=== PATIENT | female | born 1950 | race Caucasian/White ===

== ENCOUNTER → 2019-06-26 11:30 | Outpatient (CLI) | payer OTHER, SELFPAY ==
--- NOTE | 2019-06-25 15:00 | VUL_PTH ---
PATIENT: NUZHAT MURCIA LOC: [facility] #:[id number] AGE/SX: 75/F ROOM: RE06/26/[address]: Dr. Vish Mejia MD : 1950 BED: DIS: SPEC #: [id number] RECD: 06/26/19 10:41 STATUS: MAYNOR JAY JAY #: [id number] DARLENE: 06/25/19 15:[address]: Vish Mejia DEPT: SURGICAL PATHOLOGY RECD BY: Renny Goel ENTERED: 06/26/19 12:07 SP TYPE: VULVA BX OTHR DR: No Primary Care Phys Tissues: Vulva, NOS Procedures: PAS Fungus (control) Special Stain Group I Surgery Specimen Level IV HEADER OPERATION: Punch vulva biopsy PRE-OP DIAGNOSIS: Leukoplakia TISSUE SUBMITTED: Vulva biopsy MICROSCOPIC DIAGNOSIS Vulva, biopsy: Fragments of squamous mucosa with moderate to marked chronic inflammation and hyperkeratosis. Special stain for fungi is negative for organisms; matched control is appropriate. Negative for dysplasia or malignancy. STEVE:reno 06/27/19 MICROSCOPIC DESCRIPTION Slides are reviewed. GROSS DESCRIPTION Received in fixative is one container labeled with the patient's name and designated vulva biopsy. The specimen consists of two pieces of neri mucosal tissue measuring 0.4 x 0.3 x 0.2 cm and 0.7 x 0.3 x 0.1 cm. The entire specimen is submitted in one cassette. / STEVE:reno 06/26/19 TC: 3 CPT: 34383, 92681
== END ==
PROVIDERS: Referring Provider Obstetrics & Gynecology; Visit Provider Obstetrics & Gynecology
DX: N89.4 Leukoplakia of vagina (principal)
CPT/HCPCS: 88305; 88312

== ENCOUNTER → 2024-09-17 | Outpatient (CLI) | payer OTHER, SELFPAY ==
--- NOTE | 2024-09-17 12:04 | CT_ITS ---
PROCEDURE: BRAIN/HEAD WITHOUT CONTRAST 09/17/2024 REASON FOR EXAM: HX OF TUMOR REMOVAL / PAINTER PLATE SHUNT (1970), HEADACHES TECHNIQUE: Head CT without intravenous contrast. Coronal and Sagittal reconstruction series were provided. One or more dose reduction techniques were used (e.g., Automated exposure control, adjustment of the mA and/or kV according to patient size, use of iterative reconstruction technique. RADIATION DOSE SUMMARY: CTDlvol: 44.99 mGy DLP: 829.85 mGycm COMPARISON: None provided. FINDINGS: This evaluation is significantly limited by lack of a prior comparison study. Brain: Prior right craniotomy site noted. Areas of frontotemporal white matter hypodensity are consistent with postsurgical changes and gliosis. A right shunt tube is in place, with tip at or near the 3rd ventricle. No significant 3rd and lateral ventricular enlargement is seen. No sulcal effacement is evident. No extra-axial fluid collection is seen. No intracranial hemorrhage is noted Sinuses/Mastoids: Clear at visualized levels Bones: No acute osseous process is seen CT/Brain/Head without Contrast IMPRESSION: 1. No intracranial hemorrhage or other acute process is noted. 2. No ventriculomegaly is seen. 3. No extra-axial fluid collection is noted. 4. Shunt tube in place, with tip at or near the 3rd ventricle. Reading Location: [id number]
== END | disposition home or self-care (01) ==
LOC: CT 11:47
DX: R51.9 Headache, unspecified (principal); Z86.011 Personal history of benign neoplasm of the brain; Z87.898 Personal history of other specified conditions
CPT/HCPCS: 70450

== ENCOUNTER → 2024-10-24 | Outpatient (CLI) | payer OTHER, SELFPAY ==
[2024-10-24 11:56] LABS: Hematocrit 40.6 % (37-47); Hemoglobin 13.0 g/dL (12.0-15.0); Immature Granulocytes Count 0.080 X10^3/uL (0.0-0.0); Mean Corp Hgb Conc 32.0 g/dL (32-36); Mean Corpuscular Volume 97.1 fL (81-99); Mean Platelet Vol. 12.1 fl (6.2-12.0); NRBC Flagged by Analyzer 0 % (0-5); Platelet Count 182 K/mm3 (150-450); RBC Distribution Width CV 14.3 % (11.6-14.6); RBC Distribution Width SD 51.4 fl (35.1-43.9); Red Blood Count 4.18 M/mm3 (4.2-5.4); White Blood Count 6.1 K/mm3 (4.4-11.0)
[2024-10-24 12:27] LABS: AST(SGOT) 25 U/L (<=31); Alanine Aminotransfer ALT/SGPT 22 U/L (<=34); Albumin, Serum 4.3 g/dL (3.4-4.8); Alkaline Phosphatase 74 U/L (35-104); Anion Gap 12 (5-15); BUN 16 mg/dL (4-19); BUN/Creat Ratio 19.6 RATIO (10-20); Calcium,Total 9.8 mg/dL (7.6-11.0); Carbon Dioxide 21.8 mmol/L (21.0-32.0); Chloride 107 mmol/L (98-108); Globulin 2.7 g/dL (2.2-4.2); Glucose 93 mg/dL (70-99); Potassium 4.0 mmol/L (3.3-5.1)
[2024-10-24 12:53] LABS: CRP < 3.00 mg/L (0.0-3.0); Iron 74 ug/dL (50-170); Magnesium 2.4 mg/dL (1.5-2.2)
== END | disposition home or self-care (01) ==
DX: R51.9 Headache, unspecified (principal); Z87.898 Personal history of other specified conditions
CPT/HCPCS: 36415; 80053; 80201; 83540; 83735; 84443; 85025; 85652; 86140

== ENCOUNTER → 2024-11-21 | Outpatient (CLI) | payer SELFPAY ==
[2024-11-21 12:58] LABS: Ammonia 39.5 umol/L (11-51)
== END | disposition home or self-care (01) ==
LOC: MTLAB 09:47
PROVIDERS: PCP Student in an Organized Health Care Education/Training Program; Referring Provider Psychiatry & Neurology Neurology; Visit Provider Psychiatry & Neurology Neurology
DX: R51.9 Headache, unspecified (principal); R41.89 Other symptoms and signs involving cognitive functions and awareness; Z87.898 Personal history of other specified conditions
CPT/HCPCS: 36415; 80201; 82140

== ENCOUNTER 2025-03-28 17:21 | Emergency (ER) | payer OTHER, SELFPAY ==
[2025-03-28] VITALS (19 sets, daily range): BP systolic 122–185; BP diastolic 75–105; PULSE 67–88; RESP 13–18; TEMP 36.6; O2SAT 96–100; BMI 37.8
--- NOTE | 2025-03-28 18:37 | CT_ITS ---
PROCEDURE: BRAIN/HEAD WITHOUT CONTRAST 03/28/2025 REASON FOR EXAM: WEAKNESS TECHNIQUE: Procedure Code: CTBR Modality: CT Procedure: BRAIN/HEAD WITHOUT CONTRAST Coronal and Sagittal reconstruction series were provided. One or more dose reduction techniques were used (e.g., Automated exposure control, adjustment of the mA and/or kV according to patient size, use of iterative reconstruction technique. COMPARISON: CT head 09/17/2024 FINDINGS: Redemonstrated right prior craniotomy with associated underlying frontotemporal encephalomalacia. Unchanged positioning of the right ventricular drain. Stable 8.5 mm xsdn-ih-taped midline shift secondary to cortical atrophy. There is no extra-axial or intra-axial intracranial hemorrhage. No mass effect is seen. Generalized intracranial volume loss and findings compatible with chronic microvascular white matter ischemia. There is normal aclvo-white matter differentiation. The posterior fossa is grossly unremarkable. No depressed skull fractures. Visualized paranasal sinuses are clear. The mastoid air cells show normal translucency. CT/Brain/Head without Contrast IMPRESSION: 1. No intracranial hemorrhage. No significant interval change. 2. Stable right frontotemporal craniotomy with underlying encephalomalacia. 3. Unchanged 8.5 mm umlj-uj-vdrxx midline shift secondary to cortical atrophy. 4. Chronic involutional and ischemic gliotic white matter changes. Reading Location: [facility]
--- NOTE | 2025-03-28 18:37 | EKG12_ITS ---
Test Reason : DYSRHYTHMIA Blood Pressure : */* mmHG Vent. Rate : 72 BPM Atrial Rate : 72 BPM P-R Int : 220 ms QRS Dur : 106 ms QT Int : 420 ms P-R-T Axes : 38 -35 18 degrees QTcB Int : 459 ms Sinus rhythm with 1st degree A-V block Left axis deviation Incomplete left bundle branch block Minimal voltage criteria for LVH, may be normal variant ( Concord product ) Abnormal ECG Confirmed by SILVERIO CAMPOVERDE, JASS ([id number]), deputy editor in chief ANNA RUIZ ([id number]) on 03/31/2025 6:38:51 AM Referred By: Confirmed By: JASS SAWYER MD
--- NOTE | 2025-03-28 18:39 | EX.ED.DYSGE1 ---
HPI History of Present Illness Chief Complaint: Neuro S/Sx Informant: patient and family Onset/Context/Timing Onset: Days Context: Gradual Onset Timing: Continuous Quality: Weakness Location: Right upper and lower extremity Worsened by: Fatigue Relieved by: Nothing Narrative Narrative: Patient presents with right-sided weakness that has been getting worse over the past few days. Patient states it is gradually getting worse. Family states it has been intermittent. Patient states that it is over the right upper and lower extremity. Patient states it is worse when she gets tired. Patient states nothing makes it better. Family states the patient also had an episode today where she was mumbling and having difficulty speaking. Family states this has resolved. Patient admits to some urinary frequency but denies any dysuria or hematuria. Patient admits to some rhinorrhea. Patient admits to chronic headaches that have gotten worse over the past couple days. [facility] Medical History (Updated 03/28/25 @ 23:[address] Charles Titus, DO) History of benign brain tumor CKD (chronic kidney disease), stage II History of seizures Home Medications ?Medication ?Instructions ?Recorded ?Last Taken ?Type calcium carbonate 600 mg PO QDAY 09/17/24 Unknown History cholecalciferol (vitamin D3) 25 25 mcg PO QDAY 09/17/24 Unknown History mcg (1,000 unit) capsule magnesium aspart,citrate,oxide 400 mg PO QDAY 09/17/24 Unknown History multivitamin 1 tab PO QDAY 09/17/24 Unknown History potassium citrate 99 mg capsule 99 mg PO QDAY 09/17/24 Unknown History topiramate 50 mg tablet 50 mg PO .COMPLEX SEIZURES #360 11/21/24 Unknown Rx tabs cephalexin 500 mg capsule 500 mg PO Q6 #12 CAPSULES 03/28/25 Unknown Rx Allergy/AdvReac Type Severity Reaction Status Date / Time No Known Allergies Allergy Verified 03/28/25 17:22 Family History Mother , 83 Heart disease Father , 76 Heart disease Alzheimer disease Surgical History H/O: hysterectomy H/O hernia repair H/O total knee replacement H/O mastectomy Social History household members: spouse pets and animals: No Smoking Status: Never smoker alcohol intake: never caffeine: Yes Type: coffee Number of servings: 1 do you feel safe at home: Yes ROS ROS ED Constitutional Constitutional ED: Denies chills or fever(s) Eyes Eyes: Denies blurry vision or change in vision ENT ENT ED: Reports rhinorrhea; Denies sore throat Cardiovascular Cardiovascular: Denies chest pain or palpitations Respiratory/Chest Respiratory/Chest: Denies cough or dyspnea Gastrointestinal Gastrointestinal: Denies nausea or vomiting Genitourinary Genitourinary ED: Reports urinary frequency; Denies dysuria or hematuria Musculoskeletal Musculoskeletal: Denies back pain or neck pain Integumentary Denies abscess or rash Neurologic Neurologic: Reports headache(s); Denies weakness Allergic/Immunologic Allergic/Immunologic ED: Denies mouth swelling or urticaria EXAM Physical Exam Const Vital Signs: 03/28/25 17:21 03/28/25 18:21 03/28/25 19:00 Temperature 97.8 F Temperature Source Temporal Pulse Rate 88 80 67 Respiratory Rate 18 16 16 Blood Pressure 185/94 H 124/80 H 122/87 H Blood Pressure Mean 124 94 98 Pulse Ox 100 98 99 Oxygen Delivery Method Room Air Room Air 03/28/25 19:30 03/28/25 20:04 03/28/25 20:05 Temperature Temperature Source Pulse Rate 72 73 Respiratory Rate 13 16 Blood Pressure 176/105 H Blood Pressure Mean 127 Pulse Ox 98 99 Oxygen Delivery Method Room Air 03/28/25 20:15 03/28/25 20:30 03/28/25 20:45 Temperature Temperature Source Pulse Rate 71 73 68 Respiratory Rate 13 13 15 Blood Pressure 185/92 H 183/92 H 182/95 H Blood Pressure Mean 119 116 119 Pulse Ox 98 99 98 Oxygen Delivery Method 03/28/25 21:08 03/28/25 21:15 03/28/25 21:16 Temperature Temperature Source Pulse Rate 72 74 73 Respiratory Rate 17 15 16 Blood Pressure 169/77 H Blood Pressure Mean 104 Pulse Ox 98 98 97 Oxygen Delivery Method Room Air 03/28/25 21:30 03/28/25 21:45 03/28/25 22:00 Temperature Temperature Source Pulse Rate 71 68 71 Respiratory Rate 14 13 13 Blood Pressure 166/82 H 162/77 H 170/77 H Blood Pressure Mean 104 101 102 Pulse Ox 97 98 97 Oxygen Delivery Method Room Air Room Air Room Air 03/28/25 22:15 03/28/25 22:30 03/28/25 22:45 Temperature Temperature Source Pulse Rate 68 68 70 Respiratory Rate 14 15 14 Blood Pressure 149/80 H 149/75 H 162/81 H Blood Pressure Mean 99 98 105 Pulse Ox 96 97 96 Oxygen Delivery Method Room Air 03/28/25 23:00 Temperature Temperature Source Pulse Rate 68 Respiratory Rate 14 Blood Pressure 168/77 H Blood Pressure Mean 102 Pulse Ox 97 Oxygen Delivery Method Room Air Positive well nourished and well developed General Appearance ED: well developed and NAD HEENT Reports moist mucous membranes Neck supple and no JVD Resp normal respiratory effort and clear to auscultation bilaterally Cardio regular rate and regular rhythm GI non-tender and non-distended Palpation: soft Extremity normal to inspection General Extremety ED: Negative for tenderness Neuro oriented x3 and CN's II-XII intact bilaterally Neuro Narrative: 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 Patient was able to hold both arms at approximately 30 degrees for 10 seconds. There is some decrease sensation in the right hand in a glove like distribution. Sensorium / Orientation: alert Psych mental status grossly normal MDM MDM MDM Narrative Medical decision making narrative: Differential diagnosis includes stroke, neuropathy, electrolyte abnormality, urinary tract infection, dehydration, sepsis, pneumonia, bronchitis, and anxiety. CT scan of the brain will be obtained to assess for stroke and intracranial bleeding. Chest x-ray will be obtained to assess for pneumonia or bronchitis. EKG will be obtained to assess for cardiac dysrhythmia and cardiac ischemia. CBC will be obtained to assess for leukocytosis and anemia. Basic metabolic profile will be obtained to assess for electrolyte abnormality and renal function. Urinalysis will be obtained to assess for urinary tract infection and hematuria. Serum lactate will be obtained to assess for sepsis. PT with INR and PTT will be obtained to assess for coagulopathy. History & Record Review Additional record(s) reviewed:: Prior outpatient record Lab Data Attestation: I reviewed the patient's lab results. Lab results narrative: CBC was reviewed and was within normal limits. Basic metabolic profile was reviewed. Glucose was mildly elevated at 119. The remainder is within normal limits. Serum lactate was reviewed and was normal at 1.2. PT with INR and PTT were reviewed and were within normal limits. Urinalysis was reviewed. Leukocyte Estrace was 25. There are 10-25 white blood cells and 2+ bacteria. Labs: Laboratory Results - last 24 hr 03/28/25 03/28/25 03/28/25 19:05 19:26 21:06 WBC 7.5 RBC 4.39 Hgb 13.8 Hct 42.0 MCV 95.7 MCH 31.4 MCHC 32.9 RDW Std Deviation 46.7 H RDW Coeff of Tristan 13.1 Plt Count 217 MPV 11.8 Immature Gran % (Auto) 0.100 Neut % (Auto) 69.5 Lymph % (Auto) 20.6 [place] % (Auto) 7.0 Eos % (Auto) 2.4 Baso % (Auto) 0.4 Absolute Neuts (auto) 5.2 Absolute Lymphs (auto) 1.54 Nucleated RBC % 0 PT 13.5 INR 1.0 APTT 25.8 Sodium 140 Potassium 3.5 Chloride 106 Carbon Dioxide 23.1 Anion Gap 11 BUN 16 Creatinine 0.72 Estim Creat Clear Calc 59.91 Est GFR (MDRD) Non-Af 87 BUN/Creatinine Ratio 21.6 H Glucose 119 H Lactic Acid 1.2 Calcium 9.8 Urine Color Yellow Urine Clarity Clear Urine pH 7.0 Ur Specific [place] 1.010 Urine Protein Negative Urine Glucose (UA) Normal Urine Ketones Negative Urine Occult Blood Negative Urine Nitrite Positive H Urine Bilirubin Negative Urine Urobilinogen Normal Ur Leukocyte Esterase 25 H Urine RBC 0-5 SEEN Urine WBC 10-25 SEEN Ur Squamous Epith Cells 0-5 SEEN Urine Bacteria 2+ Urine Mucus 0 SEEN POC Glucose 99 Radiography Chest X-Ray - ED: 2 View, Read by ED Physician, Read by Radiologist, Chronic Changes and Cardiomegaly Diagnostic Testing: Clinical Impression(s) from Imaging Studies Brain CT 03/28/25 18:37 IMPRESSION: 1. No intracranial hemorrhage. No significant interval change. 2. Stable right frontotemporal craniotomy with underlying encephalomalacia. 3. Unchanged 8.5 mm ebob-er-podut midline shift secondary to cortical atrophy. 4. Chronic involutional and ischemic gliotic white matter changes. Reading Location: [facility] Chest X-Ray 03/28/25 19:40 IMPRESSION: Cardiomegaly with mild central vascular congestion. No acute pulmonary disease. Reading Location: [facility] CT scan of the brain was obtained. There is no acute intracranial bleeding or infarct. There is unchanged 8.5 mm kapg-bs-lqtzg midline shift secondary to atrophy. There are chronic changes noted. This was interpreted by the radiologist. I also independently reviewed the images and did not see any acute intracranial bleeding. PA and lateral chest x-ray was obtained. There are 2 views. On my independent interpretation, lung arechiga show mild vascular congestion. There is cardiomegaly. Bony thorax is normal. Radiologist also interpreted the x-ray and agrees. EKG Initial EKG: Attestation: I personally reviewed and interpreted this EKG as follows: Interpretation: Sinus Rhythm (With first-degree AV block with a rate of 72) and LAFB Comments: EKG was obtained. On my independent interpretation, it shows a sinus rhythm with a first-degree AV block with a rate of 72. GA interval was prolonged at 220 ms. QRS interval was normal at 106 ms. QTc interval was normal at 459 ms. There is left axis deviation at -35. There is a left anterior fascicular block pattern noted. There is left ventricular hypertrophy. There are no acute ST or T wave changes noted. Prior EKG tracings: not available for review Prior: No Prior Treatment and Re-Evaluation :: Patient's blood pressure was elevated. Patient was given a dose of labetalol. Patient's blood pressure improved after this. Patient was advised of her findings. Patient and family were advised that the right hand weakness is more likely from a peripheral neuropathies and a stroke. Patient was given a cock up wrist splint for her right wrist and hand. Urine culture was ordered. Patient was started on Keflex. Patient was given her normal dose of Topamax here. Discharge Plan Triage Chief Complaint: Neuro S/Sx ED Provider: Charles Titus Dx/Rx/DC Orders Clinical Impression: Peripheral neuropathy, Urinary tract infection, Elevated blood pressure reading Instructions: ED Hypertension, To Be Confirmed, ED Neuropathy, Peripheral, ED Cystitis Female Adult Prescriptions: New cephalexin 500 mg capsule 500 mg PO Q6 Qty: 12 0RF No Action multivitamin Tablet 1 tab PO QDAY cholecalciferol (vitamin D3) 25 mcg (1,000 unit) capsule 25 mcg PO QDAY calcium carbonate 600 mg calcium (1,500 mg) tablet 600 mg PO QDAY potassium citrate 99 mg capsule 99 mg PO QDAY magnesium aspart,citrate,oxide 400 mg magnesium capsule 400 mg PO QDAY topiramate 50 mg tablet 50 mg PO .COMPLEX Qty: 360 3RF Rx Instructions: 50mg orally (1 tablet) QAM and 150mg orally QHS (3 tablets) Primary Care Provider: Abeba Mcmanus Referrals: Abeba Mcmanus MD [Primary Care Provider, Family Practice] - 3-5 Days Print Language: [place] Disposition Disposition: Home, Self Care
--- OUTSIDE RECORDS SUMMARY | 2025-03-28 19:15 | XMS RPT_ITS | CCD ---
Author Organization [facility] [employer] [facility] Care Team Providers Care Oncology Research Rn Name Role Phone JUICE WATSON Unavailable SLIME FERNANDES MD Unavailable FLOYD NICOLAS V Unavailable ESSIE OAKES MD Unavailable Betina QUINN MD Unavailable Scott OAKES MD Unavailable KENZIE VELAZQUEZ MD Unavailable Yonathan QUICK, Alisa Unavailable Unavailable Beatrice RN, Carmen Unavailable Unavaila nicolás Abdalla RN, Mary Unavailable Unavailable Ami Magaña Unavailable Unavailable Floyd Magaña Unavailable Unavailable NELLY OAKES Unavailable Unavailable ZHOU FERNANDES MD Unavailable ANABELLA GAONA Unavailable Unavailable Cara Melchor Unavailable Unavailable Araceli RN, Jemima Unavailable Unavailab Sindy Esparza Unavailable Unavailable DI APODACA Unavailable Unavailable ARACELI QUICK, RENE Unavailable Unavaila ble Unavailable Unavailable ORTHOPEDICS, DIANA Unavailable [phone] ZHOU FERNANDES Consulting Unavailable JUICE CORRALES VIOLIN REPAIRER Admitting Unavailab JUICE Macdonald VIOLIN REPAIRER Primary Care Unavailab JUICE Macdonald VIOLIN REPAIRER Attending Unavailab le PROVIDER, UNKNOWN Consulting Unavailable PROVIDER, UNKNOWN Consulting Unavailable PROVIDER, UNKNOWN Consulting Unavailable JUICE CORRALES VIOLIN REPAIRER Primary Care Unavailab JUICE Macdonald VIOLIN REPAIRER Attending Unavailab le HOFSTETTER, JUICE VIOLIN REPAIRER Admitting Unavailab le HOFSTETTER, JUICE VIOLIN REPAIRER Primary Care Unavailab le HOFSTETTER, JUICE VIOLIN REPAIRER Attending Unavailab le HOFSTETTER, JUICE VIOLIN REPAIRER Admitting Unavailab le OAKES, ESSIE Admitting Unavailable OAKES, ESSIE Primary Care Unavailable OAKES, ESSIE Attending Unavailable HOFSTETTLESLY, JUICE VIOLIN REPAIRER Consulting Unavailab le PROVIDER, UNKNOWN Consulting Unavailable PROVIDER, UNKNOWN Consulting Unavailable HOMAYRATETTER, JUICE VIOLIN REPAIRER Admitting Unavailab le HOFSTETTER, JUICE VIOLIN REPAIRER Primary Care Unavailab le HOMAYRATETTLESLY, JUICE VIOLIN REPAIRER Attending Unavailab le ZHOU FERNANDES Consulting Unavailable PROVIDER, UNKNOWN Consulting Unavailable PROVIDER, UNKNOWN Consulting Unavailable PROVIDER, UNKNOWN Consulting Unavailable Generic Provider MD, No Assigned Pcp Primary Car e Provider Unavailable AMARJIT GALARZA Attending Unavailable GENERIC PROVIDER, NO ASSIGNED PCP Primary Care Unavailable NORMA MCMANUS MD Unavailable SAVANNA DATA MINING ANALYST-C, JUICE Kilpatrick Unavailable Unav ailable NEUROLOGY, GENERAL Unavailable Unavailable Care Physician, No Primary Primary Care Provider Unavailable Care Physician, No Primary Referring Provider Un available Carmen ALVARADO-CRadha Attending Provider [phone] Carmen VIOLIN REPAIRER-CRadha Referring Provider [phone] Norma Mcmanus MD Primary Care Provider Conrad CAMPOVERDE, Dr. Jorge Attending Provider Dr. Luisito Martines MD Referring Provider Carmen VIOLIN REPAIRER-CRadha Other Provider [phone] Yonathan Norma Primary Care Unavailable Luisito Martines Attending Unavailable Luisito Martines Referring Unavailable Radha Morales Consulting Unavailable Radha Morales Attending Unavailable Radha Morales Referring Unavailable Care Physician, No Primary Primary Care Unava ilable Care Physician, No Primary Referring Unava ilable Radha Morales Attending Unavailable Care Physician, No Primary Primary Care Unava ilable Care Physician, No Primary Referring Unava ilable Radha Morales Attending Unavailable Care Physician, No Primary Primary Care Unava ilable Care Physician, No Primary Primary Care Unava ilable Care Physician, No Primary Referring Unava ilable Radha Morales Attending Unavailable Radha Morales Attending Unavailable Radha Morales Referring Unavailable Care Physician, No Primary Primary Care Unava ilable Medications Current Medications Medication Drug Class(es) Dates Sig (Normalized) Sig (Original) acetaminophen 500 mg / diphenhydrAMINE hydrochloride 25 mg oral tablet (11 sources) Histamine-1 Receptor Antagonist Tylenol PM Extra Strength 25 mg-500 mg tablet ; as needed to sleep (25-500 mg) Comments: Medication taken as needed. Comment on above: Medication taken as needed. ascorbic acid 250 mg oral tablet (20 sources) Vitamin C take 1 tablet by mouth once daily VITAMIN C, 250MG (Oral Tablet) ; 1 daily (250 MG) Comments: OTC Comment on above: OTC ascorbic acid 226 mg / cuprous oxide 0.8 mg / dl-alpha tocopheryl acetate 200 unt / lutein 5 mg / zinc oxide 34.8 mg oral capsule (20 sources) Vitamin C take 1 capsule by mouth once daily PRESERVISION/LUTEIN (Oral Capsule) ; 1 daily Comments: OTC Comment on above: OTC calcium carbonate 1500 mg oral tablet (6 sources) Start: 09-17-2024 take 1 tablet by mouth once daily Calcium Carbonate 600 mg calcium (1,500 mg) tablet Active 600 mg PO daily September 17, 2024 12:00am cholecalciferol 0.025 mg oral capsule (6 sources) Vitamin D Start: 09-17-2024 take 1 capsule by mouth once daily Cholecalciferol (Vitamin D3) 25 mcg (1,000 unit) capsule Active 25 ug PO daily September 17, 2024 12:00am diazePAM 5 mg oral tablet (20 sources) Benzodiazepine Start: 08-04-2023 take 1 tablet by mouth at bedtime as needed Valium 5 mg tablet ; 1 Tablet at bedtime, as needed for 30 days Quantity: 30 {Tablet} Refills: 1 Ordered: 19-Apr-2024 MD NORMA MCMANUS Start: 19-Apr-2024 Comments: Medication taken as needed. Start: 10-28-2022 take 1 tablet by екатерина th at bedtime as needed Valium 5 mg tablet ; 1 Tablet at bedtime, as needed for 0 days Quantity: 60 {Tablet} Refills: 0 Ordered: 28-Oct-2022 FREDI CORRALES Start: 28-Oct-2022 Comments: Medication taken as needed. Comment on above: Medication taken as needed. Magnesium Aspart,Citrate,Oxide 400 mg magnesium capsule (6 sources) Start: 5 take 1 capsule by mouth once daily Magnesium Aspart,Citrate,Oxide 400 mg magnesium capsule Active 400 mg PO daily September 17, 2024 12:00am Multivitamin tablet (6 sources) Start: 5 Multivitamin tablet Active 1 {tbl} PO daily September 17, 2024 12:00am potassium citrate 99 mg oral tablet (6 sources) Start: 5 take 1 capsule by mouth once daily Potassium Citrate 99 mg capsule Active 99 mg PO daily September 17, 2024 12:00am potassium gluconate 2.35 meq oral tablet (20 sources) take 1 tablet by mouth once daily potassium gluconate 550 mg (90 mg) oral tablet ; 1 daily (550 mg (90 mg)) Comments: OTC Comment on above: OTC Completed/Discontinued Medications Medication Drug Class(es) Dates Sig (Normalized) Sig (Original) azithromycin 250 mg oral tablet (20 sources) Macrolide Antimicrobial Start: 04-28-2023 End: 05-03-2023 azithromycin 250 mg tablet ; 2 (two) Tablets on day one then 1 daily for 4 days for 5 days Quantity: 6 {Tablet} Refills: 0 Ordered: 11-May-2023 FREDI CORRALES Start: 28-Apr-2023 End: 03-May-2023 Status: Inactive Start: 06-20-2013 End: 06-25-2013 AZITHROMYCIN, 250MG (Oral Ta blet) ; 2 x 1 then 1 x 4 Tablet daily for 5 days Quantity: 1 {Tablet} Refills: 0 Ordered: 05-Nov-2013 MD Scott OAKES Start: 20-Jun-2013 End: 25-Jun-2013 Status: Inactive Comments: take two tablets day one and then one tablet daily for 4 daysmeds to be dispensed in office Start: 10-06-2011 End: 10-11-2011 AZITHROMYCIN, 250MG (Oral Ta blet) ; 2 x 1 then 1 x 4 Tablet daily for 5 days Quantity: 1 {Tablet} Refills: 0 Ordered: 30-Oct-2012 MD Betina QUINN Start: 06-Oct-2011 End: 11-Oct-2011 Status: Inactive Comments: take two tablets day one and then one tablet daily for 4 daysmeds to be dispensed in office Comment on above: take two tablets day one and then one tablet daily for 4 daysmeds to be dispensed in office benzonatate 100 mg oral capsule (20 sources) Non-narcotic Antitussive Start: 012 End: take 1 capsule by mouth every eight hours as needed for cough TESSALON PERLES, 100MG (Oral Capsule) ; 1 (one) Capsule q 8 hours prn cough for 10 days Quantity: 30 {Capsule} Refills: 0 Ordered: 30-Oct-2012 MD Betina QUINN Start: 06-Oct-2011 End: 16-Oct-2011 Status: Inactive dextromethorphan hydrobromide 2 mg/ml / guaiFENesin 20 mg/ml oral suspension (20 sources) Uncompetitive X-ljjezx-L-aspartate Receptor Antagonist, Sigma-1 Agonist Start: 012 End: take 1 [tsp_us] by mouth every four hours as needed for cough ROBITUSSIN DM, 100-10MG/5ML (Oral Syrup) ; 1 (one) teaspoon every four hours as needed for cough for 7 days Quantity: 4 {ounce(s)} Refills: 0 Ordered: 30-Oct-2012 MD Betina QUINN Start: 06-Oct-2011 End: 13-Oct-2011 Status: Inactive Comments: Medication taken as needed. Comment on above: Medication taken as needed. dicyclomine hydrochloride 20 mg oral tablet (20 sources) Anticholinergic Start: 016 End: take 1 tablet by mouth three times daily as needed Bentyl 20 MG Oral Tablet ; 1 (one) Tablet three times daily, as needed for abdominal cramps for 0 days Quantity: 30 {Tablet} Refills: 0 Ordered: 05-May-2016 YNES Barron Start: 05-Nov-2015 End: 05-May-2016 Status: Inactive Comments: Medication taken as needed. Comment on above: Medication taken as needed. OMEGA 3, 1200MG (Oral Capsule) (20 sources) take 1 capsule by mouth once daily OMEGA 3, 1200MG (Oral Capsule) ; 1 daily (1200 MG) Status: Inactive predniSONE 5 mg oral tablet (20 sources) Start: End: predniSONE 5 mg tablet ; 8 Tablets day 1; 6 tablets day 2; 4 tablets day 3; 2 tablets day 4; 1 tablet day 5. for 5 days Quantity: 21 {Tablet} Refills: 0 Ordered: 11-May-2023 FREDI CORRALES Start: 28-Apr-2023 End: 03-May-2023 Status: Inactive Comments: Take with food. Comment on above: Take with food. sulfamethoxazole 800 mg / trimethoprim 160 mg oral tablet (20 sources) Dihydrofolate Reductase Inhibitor Antibacterial, Sulfonamide Antimicrobial Start: End: take 1 tablet by mouth twice daily Bactrim DS 800-160 mg oral tablet ; 1 (one) tablet two times daily for 3 days Quantity: 6 {Tablet} Refills: 0 Ordered: 07-Jun-2022 FREDI CORRALES Start: 20-Apr-2022 End: 23-Apr-2022 Status: Inactive topiramate 50 mg oral tablet (20 sources) Start: 025 End: Topiramate 50 mg tablet Discontinued 50 mg PO .COMPLEX November 21, 2024 9:04am November 21, 2024 9:25am 50 mg orally 50mg in the am and 150mg in the pm; Start: 11-05-2023 topiramate 50 mg tablet ; 1 (one) Tablet 1 in am and 2 in pm for 0 days Quantity: 270 {Tablet} Refills: 1 Ordered: 19-Apr-2024 MD NORMA MCMANUS Start: 19-Apr-2024 Start: 04-28-2023 topiramate 50 mg tablet ; 1 (one) Tablet 1 in am and 2 in pm for 0 days Quantity: 270 {Tablet} Refills: 1 Ordered: 28-Apr-2023 FREDI CORRALES Start: 28-Apr-2023 vitamin e 180 mg oral capsule (20 sources) take 1 capsule by mouth once daily VITAMIN E NATURAL, 400UNIT (Oral Capsule) ; 1 daily (400 UNIT) Status: Inactive zolpidem tartrate 5 mg oral tablet (20 sources) gamma-Aminobutyric Acid-ergic Agonist Start: 08-04-2023 End: 08-16-2024 take 1 tablet by mouth at bedtime as needed zolpidem 5 mg tablet ; 1 (one) Tablet at bedtime, as needed for 30 days Quantity: 30 {Tablet} Refills: 2 Ordered: 16-Aug-2024 MD NORMA MCMANUS Start: 04-Aug-2023 End: 16-Aug-2024 Status: Discontinued Comments: Medication taken as needed. hold until calls Start: 04-28-2023 take 1 tablet by екатерина th at bedtime as needed zolpidem 5 mg tablet ; 1 (one) Tablet at bedtime, as needed for 30 days Quantity: 30 {Tablet} Refills: 2 Ordered: 28-Apr-2023 FREDI CORRALES Start: 28-Apr-2023 Comments: Medication taken as needed. Comment on above: Medication taken as needed. Medication taken as needed. hold until calls Problems Active Problems Problem Classification Problem Date Documented Da te Episodic/Chronic Abdominal hernia (20 sources) Hernia of anterior abdominal wall; Translations: [Ventral hernia without obstruction or gangrene] 10-28-2022 Episodic Comment on above: Abdominal. Acute bronchitis (20 sources) Acute bronchitis; Translations: [Acute bronchitis, unspecified] 10-06-2011 Episodic Administrative/social admission (20 sources) Issue of repeat prescriptions 07-14-2011 Episodic Anxiety disorders (20 sources) Anxiety; Translations: [Anxiety disorder, unspecified] 10-28-2022 Chronic Blindness and vision defects (20 sources) Legal blindness; Translations: [Legal blindness, as defined in [place]] 10-28-2022 Chronic Comment on above: Right eye tunnel vis ion.Hx brain tumor Cancer of breast (20 sources) History of malignant neoplasm of breast; Translations: [Personal history of malignant neoplasm of breast] 10-28-2022 Episodic Comment on above: Right. 2001. Conditions associated with dizziness or vertigo (20 sources) Conditions associated with dizziness or vertigo 03-19-2021 Epilepsy; convulsions (20 sources) Seizure disorder; Translations: [Epilepsy, unspecified, not intractable, without status epilepticus] 10-28-2022 Chronic Comment on above: Stable. Dx: 1970sCurrent rx: topamax since 2008Past rx: dilantin (ineffective)Was seeing neuro and they offered a surgery but very dangerous so they declinedLast seizure: 2020 Esophageal disorders (20 sources) Gastroesophageal reflux disease; Translations: [Gastro-esophageal reflux disease without esophagitis] 10-28-2022 Chronic Gastritis and duodenitis (20 sources) Gastritis; Translations: [Gastritis, unspecified, without bleeding] 10-27-2016 Episodic Genitourinary symptoms and ill-defined conditions (20 sources) Increased frequency of urination; Translations: [Frequency of micturition] 10-28-2022 Episodic Headache; including migraine (20 sources) Chronic daily headache; Translations: [Headache] 08-16-2024 Episodic Headache; including migraine (20 sources) Headache; including migraine; Translations: [Headache, unspecified] Onset: 5 04-28-2023 Immunizations and screening for infectious disease (20 sources) Encounter for immunization; Translations: [Other specified vaccinations against streptococcus pneumoniae [pneumococcus]] 10-28-2022 Episodic Miscellaneous mental health disorders (20 sources) Chronic insomnia; Translations: [Psychophysiologic insomnia] 04-28-2023 Chronic Comment on above: Dx: 2017 [place] star tedTx: carter Nutritional deficiencies (20 sources) Serum iron low; Translations: [Iron deficiency] 05-01-2023 Episodic Other aftercare (20 sources) H/O: high risk medication; Translations: [Other rn long term care (current) drug therapy] 03-19-2021 Episodic Other aftercare (20 sources) Patient encounter status; Translations: [Encounter for therapeutic drug level monitoring] 10-26-2017 Episodic Other circulatory disease (20 sources) Elevated blood pressure; Translations: [Elevated blood-pressure reading, without diagnosis of hypertension] 08-16-2024 Episodic Other congenital anomalies (20 sources) Congenital posterolateral diaphragmatic hernia; Translations: [Congenital diaphragmatic hernia] 10-28-2022 Chronic Other connective tissue disease (20 sources) Pain of right lower leg; Translations: [Pain in right lower leg] 12-01-2022 Episodic Other eye disorders (20 sources) Esotropia; Translations: [Unspecified esotropia] 10-28-2022 Episodic Comment on above: Left eye - Blind Tot al Other eye disorders (1 source) Monocular esotropia, left eye; Translations: [Monocular esotropia, left eye] Onset: Episodic Other gastrointestinal disorders (20 sources) Irritable bowel syndrome characterized by constipation; Translations: [Irritable bowel syndrome with constipation] 10-28-2022 Chronic Comment on above: with cramps Other injuries and conditions due to external causes (20 sources) Injury of right ankle; Translations: [Unspecified injury of right ankle, initial encounter] 10-28-2022 Episodic Other injuries and conditions due to external causes (20 sources) At risk for falls ; Translations: [History of falling] 10-27-2016 Episodic Other nervous system disorders (20 sources) H/O: epilepsy; Translations: [Personal history of other diseases of the nervous system and sense organs] 04-28-2023 Episodic Comment on above: Dx: 1970sCurrent rx: topamax since 2008Past rx: dilantin (ineffective)Was seeing neuro and they offered a surgery but very dangerous so they declinedLast seizure: 2020 Other nervous system disorders (20 sources) History of benign neoplasm of brain; Translations: [Personal history of benign neoplasm of the brain] 09-17-2024 Episodic Comment on above: 1970, 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 (not MRI compatible) 1970, 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 Other nervous system disorders (20 sources) Impaired cognition; Translations: [Other symptoms and signs involving cognitive functions and awareness] 09-17-2024 Episodic Other nervous system disorders (1 source) Personal history of benign neoplasm of the brain; Translations: [Personal history of benign neoplasm of the brain] Onset: 5 Episodic Other nervous system disorders (1 source) Other symptoms and signs involving cognitive functions and awareness; Translations: [Other symptoms and signs involving cognitive functions and awareness] Onset: 5 Episodic Other non-traumatic joint disorders (20 sources) Pain in right hip joint; Translations: [Pain in right hip] 10-28-2022 Episodic Other non-traumatic joint disorders (20 sources) Pain in right knee; Translations: [Pain in joint, lower leg] 08-04-2023 Episodic Other non-traumatic joint disorders (20 sources) Hip pain; Translations: [Pain in right hip] 08-04-2023 Episodic Other nutritional; endocrine; and metabolic disorders (20 sources) H/O: metabolic disorder; Translations: [Personal history of other endocrine, nutritional and metabolic disease] 10-28-2022 Episodic Other screening for suspected conditions (not mental disorders or infectious disease) (4 sources) Electrocardiogram abnormal; Translations: [Abnormal electrocardiogram [ECG] [EKG]] Onset: 4 03-18-2024 Episodic Pneumonia (except that caused by tuberculosis or sexually transmitted disease) (20 sources) Infective pneumonia; Translations: [Pneumonia, unspecified organism] Onset: 4 04-28-2023 Episodic Residual codes; unclassified (20 sources) Overweight; Translations: [Other specified conditions influencing health status] 10-28-2022 Episodic Residual codes; unclassified (20 sources) H/O: neoplasm; Translations: [Personal history of other specified conditions] 10-28-2022 Episodic Residual codes; unclassified (20 sources) History of clinical finding in subject; Translations: [Personal history of other specified conditions] 10-28-2022 Episodic Residual codes; unclassified (20 sources) Personal history of other specified conditions; Translations: [Personal history of other disorders of nervous system and sense organs] Onset: 5 08-04-2023 Episodic Residual codes; unclassified (20 sources) H/O: brain disorder; Translations: [Personal history of other specified conditions] 08-16-2024 Episodic Unclassified (20 sources) Insomnia - The last clinic visit was 6 month(s) ago. Note for Insomnia: sleeping good with zolpidem. Takes valium only if tremors during the night. 04-28-2023 Unclassified (20 sources) [ADDITIONAL REASON] Seizure Disorder, Adult - The last clinic visit was 6 month(s) ago. Note for Seizure disorder: wants to talk about any new med options. 04-28-2023 Unclassified (20 sources) Insomnia - The last clinic visit was 3 month(s) ago. 10-28-2022 Unclassified (20 sources) [ADDITIONAL REASON] Injury - The patient reports that it was accidental and happened at home. The date of the injury was on 10-26-22. The injury is described as being located in the ankle (right).The pain is described as mild. The injury happened due to a falling down (down stairs). 10-28-2022 Unclassified (20 sources) [ADDITIONAL REASON] Seizure Disorder, Adult - The last clinic visit was 3 month(s) ago. 10-28-2022 Unclassified (20 sources) Seizure Disorder, Adult - The patient's typical seizures are grand mal. The last clinic visit was 6 month(s) ago. Note for Seizure disorder: No seizures in the last six months. Medication is helping 04-20-2022 Unclassified (20 sources) [ADDITIONAL REASON] Insomnia - The last clinic visit was 6 month(s) ago. Symptoms include difficulty falling asleep. Note for Insomnia: Medication is helping. Does not take every night 04-20-2022 Unclassified (20 sources) [ADDITIONAL REASON] Urinary frequency - The onset of the urinary frequency has been sudden and has been occurring in a persistent pattern for 2 months. The course has been increasing. The symptoms have been associated with flank pain (sometimes) and suprapubic pain, while the symptoms have not been associated with dysuria. Note for Urinary frequency: C/O itching 04-20-2022 Unclassified (20 sources) !Patient notification of lab results - FREDI Chu. The test(s) that you had done were/was blood work. The results of your testing were normal for age . You should call our office if you have any questions. Please follow up as scheduled. Note for !Patient notification of lab results : Blood work looked great other than mild elevation of cholesterol. Make sure you stay as active as you can and eat fresh fruits and veggies. Thanks! 10-21-2021 Unclassified (7 sources) Anxiety - Note for Anxiety: Uses Valium Rarely 10-20-2021 Unclassified (20 sources) [ADDITIONAL REASON] Insomnia - The last clinic visit was 6 month(s) ago. Symptoms include difficulty falling asleep. Note for Insomnia: Medication is helping 10-20-2021 Unclassified (7 sources) [ADDITIONAL REASON] Seizure Disorder, Adult - The patient's typical seizures are grand mal. Note for Seizure disorder: Medication is helping. No recent seizures 10-20-2021 Unclassified (16 sources) Seizure Disorder, Adult - Note for Seizure disorder: No seizures since last visit. 10-28-2020 Unclassified (20 sources) [ADDITIONAL REASON] Insomnia - Symptoms include difficulty falling asleep. 10-28-2020 Unclassified (20 sources) [ADDITIONAL REASON] Anxiety - The anxiety has been occurring in an intermittent pattern for 2 weeks. The anxiety is characterized as nervousness. 10-28-2020 Unclassified (20 sources) Seizure Disorder, Adult - Note for Seizure disorder: Pt needs a refill on medication. 05-07-2020 Unclassified (20 sources) [ADDITIONAL REASON] Insomnia - Note for Insomnia: Pt needs refill on Ambien. 05-07-2020 Unclassified (12 sources) Insomnia - The last clinic visit was 6 month(s) ago. 10-31-2019 Unclassified (20 sources) [ADDITIONAL REASON] Seizure Disorder, Adult - The last clinic visit was 6 month(s) ago. 10-31-2019 Unclassified (20 sources) Seizure Disorder, Adult - Note for Seizure disorder: Needs a refill on medication. 05-02-2019 Unclassified (20 sources) Seizure Disorder, Adult - The last clinic visit was 6 month(s) ago. Note for Seizure disorder: . 10-25-2018 Unclassified (20 sources) [ADDITIONAL REASON] Insomnia - The last clinic visit was 6 month(s) ago. 10-25-2018 Unclassified (20 sources) [ADDITIONAL REASON] Edema - Symptoms include edema and weight gain. The edema involves both lower extremities. Onset was 2 month(s) ago. Note for Edema: Pt. has been trying to lose weight and thinks it may be water weight. 04-26-2018 Unclassified (20 sources) Insomnia - Note for Insomnia: . 10-26-2017 Unclassified (20 sources) Seizure Disorder, Adult - The last clinic visit was 6 month(s) ago. 04-27-2017 Unclassified (8 sources) [ADDITIONAL REASON] Insomnia - The last clinic visit was 6 month(s) ago. Note for Insomnia: Pt needs a refill on Ambien.. 04-27-2017 Unclassified (20 sources) Routine Check - Patient is here to review the medical problem(s) of other: ____ (Insomnia and seizures.). Note for Routine Check : . 10-27-2016 Unclassified (6 sources) Injury - The patient reports that it was accidental and happened at home. The date of the injury was on 10-26-22. The injury is described as being located in the ankle (right).The pain is described as mild. The injury happened due to a falling down (down stairs). 10-28-2022 Unclassified (17 sources) [ADDITIONAL REASON] Insomnia - The last clinic visit was 3 month(s) ago. 10-28-2022 Unclassified (6 sources) Anxiety - The anxiety has been occurring in an intermittent pattern for 2 weeks. The anxiety is characterized as nervousness. 10-28-2020 Unclassified (19 sources) [ADDITIONAL REASON] Seizure Disorder, Adult - Note for Seizure disorder: No seizures since last visit. 10-28-2020 Unclassified (12 sources) Insomnia - Note for Insomnia: Pt needs refill on Ambien. 05-07-2020 Unclassified (12 sources) [ADDITIONAL REASON] Seizure Disorder, Adult - Note for Seizure disorder: Pt needs a refill on medication. 05-07-2020 Unclassified (20 sources) Insomnia - The last clinic visit was 6 month(s) ago. Note for Insomnia: Pt needs a refill on Ambien.. 04-27-2017 Unclassified (20 sources) Seizure Disorder, Adult - The patient's typical seizures are grand mal. Note for Seizure disorder: Medication is helping. No recent seizures 10-20-2021 Unclassified (20 sources) [ADDITIONAL REASON] Anxiety - Note for Anxiety: Uses Valium Rarely 10-20-2021 Unclassified (11 sources) Seizure Disorder, Adult - The last clinic visit was 3 month(s) ago. 10-28-2022 Unclassified (5 sources) [ADDITIONAL REASON] Insomnia - The last clinic visit was 6 month(s) ago. Note for Insomnia: sleeping good with zolpidem. Takes valium only if tremors during the night. 04-28-2023 Unclassified (14 sources) [ADDITIONAL REASON] Seizure Disorder, Adult - The last clinic visit was 6 month(s) ago. Note for Seizure disorder: . 10-25-2018 Unclassified (7 sources) Edema - Symptoms include edema and weight gain. The edema involves both lower extremities. Onset was 2 month(s) ago. Note for Edema: Pt. has been trying to lose weight and thinks it may be water weight. 04-26-2018 Unclassified (20 sources) Insomnia - The last clinic visit was 4 month(s) ago. Note for Insomnia: does not use zolpidem every night. Sometimes uses Tylenol PM. 08-04-2023 Unclassified (20 sources) [ADDITIONAL REASON] Seizure Disorder, Adult - The last clinic visit was 4 month(s) ago. Note for Seizure disorder: doing well. 08-04-2023 Unclassified (6 sources) Urinary frequency - The onset of the urinary frequency has been sudden and has been occurring in a persistent pattern for 2 months. The course has been increasing. The symptoms have been associated with flank pain (sometimes) and suprapubic pain, while the symptoms have not been associated with dysuria. Note for Urinary frequency: C/O itching 04-20-2022 Unclassified (7 sources) [ADDITIONAL REASON] Seizure Disorder, Adult - The patient's typical seizures are grand mal. The last clinic visit was 6 month(s) ago. Note for Seizure disorder: No seizures in the last six months. Medication is helping 04-20-2022 Unclassified (6 sources) Seizure Disorder, Adult - The last clinic visit was 4 month(s) ago. Note for Seizure disorder: doing well. 08-04-2023 Unclassified (6 sources) [ADDITIONAL REASON] Insomnia - The last clinic visit was 4 month(s) ago. Note for Insomnia: does not use zolpidem every night. Sometimes uses Tylenol PM. 08-04-2023 Unclassified (1 source) Insomnia - The last clinic visit was 6 month(s) ago. Symptoms include difficulty falling asleep. Note for Insomnia: Medication is helping. Does not take every night 04-20-2022 Unclassified (13 sources) Insomnia - Symptoms include difficulty falling asleep. 10-28-2020 Unclassified (9 sources) Anxiety Disorders - The last clinic visit was 4 month(s) ago. 08-16-2024 Unclassified (11 sources) [ADDITIONAL REASON] Insomnia - The last clinic visit was 4 month(s) ago. 08-16-2024 Unclassified (9 sources) [ADDITIONAL REASON] Seizure Disorder, Adult - The patient's typical seizures are grand mal. The last clinic visit was 4 month(s) ago. Note for Seizure disorder: doing well after Mar 2024 knee surgery 08-16-2024 Unclassified (11 sources) [ADDITIONAL REASON] Ear blocked - The onset of the blocked ear has been acute. There has been associated decreased hearing. 08-16-2024 Unclassified (2 sources) Seizure Disorder, Adult - The patient's typical seizures are grand mal. The last clinic visit was 4 month(s) ago. Note for Seizure disorder: doing well after Mar 2024 knee surgery 08-20-2024 Unclassified (2 sources) [ADDITIONAL REASON] Anxiety Disorders - The last clinic visit was 4 month(s) ago. 08-20-2024 Unclassified (4 sources) Worsening headaches Unclassified (4 sources) History of seizure Past or Other Problems Problem Classification Problem Date Documented Date Episodic/Chronic Other and unspecified benign neoplasm (20 sources) Adenomatous polyp of colon ; Translations: [Benign neoplasm of ascending colon] Onset: 02-15-2017 10-28-2022 Episodic Other connective tissue disease (1 source) Pain in right lower leg; Translations: [Pain in right lower leg] Onset: 12-05-2022 Episodic Other connective tissue disease (1 source) Other specified soft tissue disorders; Translations: [Other specified soft tissue disorders] Onset: 12-05-2022 Episodic Other injuries and conditions due to external causes (3 sources) Unspecified injury of right ankle, sequela; Translations: [Unspecified injury of right ankle, sequela] Onset: 12-05-2022 Episodic Other injuries and conditions due to external causes (3 sources) Unspecified injury of right ankle, initial encounter; Translations: [Unspecified injury of right ankle, initial encounter] Onset: 10-28-2022 Episodic Unclassified (20 sources) !Patient notification of lab results - FREDI Chu. The test(s) that you had done were/was an ultrasound exam. The results of your testing were normal . You should call our office if you have any questions. Please let us know if your symptoms do not improve. 12-05-2022 Unclassified (20 sources) Ankle Swelling - Symptoms include ankle swelling, ankle pain and ankle redness. Symptoms are located in the right ankle. Note for Ankle swelling: Fell on ankle approx 1 month ago. Afraid has a blood clot now. 12-01-2022 Unclassified (20 sources) !Patient notification of lab results - Dr. Fernandes. The test(s) that you had done were/was x-rays (There is some arthritis in your hip and lumbar spine, but no other abnormalities.). You should call our office if you have any questions. 05-14-2020 Unclassified (20 sources) !Patient notification of lab results - Dr. Fernandes. The test(s) that you had done were/was blood work (Your blood count, iron, cholesterol, electrolytes, sugar, liver, kidneys and thyroid are all normal.). You should call our office if you have any questions. 05-08-2020 Unclassified (20 sources) !Patient notification of lab results - Dr. Fernandes. The test(s) that you had done were/was a Topamax level and a CMP (kidneys, liver, nutrition, sugar). The results of your testing were normal . You should call our office if you have any questions. 11-04-2019 Unclassified (20 sources) !Patient notification of lab results - Dr. Fernandes. The test(s) that you had done were/was a Topamax level and a CMP (kidneys, liver, nutrition, sugar). The results of your testing were normal . Please note that we have included copies of your results, continue your current medication/therapy and follow up as scheduled. 10-30-2018 Unclassified (20 sources) !Patient notification of lab results - Fredi. The test(s) that you had done were/was a Topamax level and a CMP (kidneys, liver, nutrition, sugar). The results of your testing were normal . Please note that we have included copies of your results and continue your current medication/therapy (Topamax could be increased if there is more seizure activity). 11-01-2017 Unclassified (20 sources) !Patient notification of lab results - Fredi. The test(s) that you had done were/was a potassium level. The results of your testing were normal . Please note that we have included copies of your results and continue your current medication/therapy. 04-30-2017 Unclassified (20 sources) !Patient notification of lab results - Fredi. The test(s) that you had done were/was blood work (including a Topamax level). The results of your testing were normal . Please note that we have included copies of your results and continue your current medication/therapy. 11-01-2016 Unclassified (20 sources) Routine Check - Patient is here to review the medical problem(s) of other: ____ (seizures and insomnia). Note for Routine Check : used relative's ambien and would like some herself.. 05-05-2016 Unclassified (20 sources) !Patient notification of lab results 1 - Fredi. The test(s) that you had done were/was a Topamax level and blood work. The results of your testing were normal . Please note that we have included copies of your results and continue your current medication/therapy. 11-09-2015 Unclassified (20 sources) Seizure Disorder, Adult - Note for Seizure disorder: . 11-05-2015 Unclassified (20 sources) Routine Check - Patient is here to review the medical problem(s) of other: ____ (anxiety and sleep disorder. ). Note for Routine Check : Pt is fasting today.. 05-14-2015 Unclassified (20 sources) !Patient notification of lab results 1 - Fredi. The test(s) that you had done were/was a Topamax level, a CBC (checks for anemia and infection) and a CMP (kidneys, liver, nutrition, sugar). The results of your testing were normal . Please continue your current medication/therapy and follow up as scheduled. 11-17-2014 Unclassified (20 sources) Seizure Disorder, Adult - Note for Seizure disorder: sleeping well and no headaches.. 11-13-2014 Unclassified (20 sources) Routine Check - Patient is here to review the medical problem(s) of other: ____ (seizure disorder and insomnia. possibly wants something other than Valium.). Note for Routine Check : . 05-15-2014 Unclassified (20 sources) Immunization - A Pneumovax was given. An immunization information sheet was provided. 01-03-2014 Unclassified (20 sources) !Patient notification of lab results 1 - Fredi. The test(s) that you had done were/was a Topamax level and blood work. The results of your testing were normal . Please note that we have included copies of your results, continue your current medication/therapy and follow up as scheduled. 11-18-2013 Unclassified (20 sources) Seizure Disorder, Adult - Note for Seizure disorder: needs refill on meds and wants lab work.. 11-14-2013 Unclassified (20 sources) cough - The onset of the cough has been acute and has been occurring in a persistent pattern for 4 days. The course has been constant. The symptoms have been associated with wheezing. Note for cough: last pneumovax 2006. 06-20-2013 Unclassified (20 sources) !Patient notification of lab results 1 - Dr. Fernandes. The test(s) that you had done were/was blood work. Your tests showed the following abnormalities: high cholesterol and triglycerides . Please adjust your therapy by following a low cholesterol diet. Please note that we have included copies of your results, continue your current medication/therapy and follow up as scheduled. 11-01-2012 Unclassified (20 sources) Seizures - Note for Seizures: pt states she has only been taking 1 Topiramate twice daily because she was almost out, states she feels much better when taking less and wonders if it is ok to decrease dose, no seizures 09-15-2010 Unclassified (20 sources) !Patient notification of lab results - FREDI Chu. The test(s) that you had done were/was blood work. Your tests were not to goal Please adjust your therapy by taking an iron supplement. You should call our office if you have any questions. Please follow up as scheduled. Note for !Patient notification of lab results : Your iron is very low. Please start an iron supplement. If you have questions, please let me know. Thanks! 05-01-2023 Unclassified (20 sources) !Patient notification of lab results - FREDI Chu. The test(s) that you had done were/was a chest X-ray. The results of your testing were normal . You should call our office if you have any questions. Please let us know if your symptoms do not improve. Note for !Patient notification of lab results : Please take mucinex. Let us know if you don't get better but remember you can cough after pneumonia. Thanks! 05-12-2023 Unclassified (16 sources) Seizure Disorder, Adult - The last clinic visit was 9 month(s) ago. Note for Seizure disorder: No seizures for 4 years. 04-19-2024 Unclassified (18 sources) [ADDITIONAL REASON] Insomnia - The last clinic visit was 9 month(s) ago. Symptoms include difficulty falling asleep and difficulty staying asleep. Note for Insomnia: Medication is helping. Uses as needed 04-19-2024 Unclassified (16 sources) [ADDITIONAL REASON] Anxiety Disorders - It is classified as generalized anxiety disorder. The last clinic visit was 9 month(s) ago. Note for Anxiety disorders: Medication is helping. Had Knee Surgery 03/20/2024 04-19-2024 Unclassified (14 sources) !Patient notification of lab results - Dr. Mcmanus. The test(s) that you had done were/was a BMP (potassium, sodium, sugar, and kidney function). The results of your testing were normal . You should call our office if you have any questions. 05-20-2024 Unclassified (2 sources) Anxiety Disorders - It is classified as generalized anxiety disorder. The last clinic visit was 9 month(s) ago. Note for Anxiety disorders: Medication is helping. Had Knee Surgery 03/20/2024 04-19-2024 Unclassified (2 sources) [ADDITIONAL REASON] Seizure Disorder, Adult - The last clinic visit was 9 month(s) ago. Note for Seizure disorder: No seizures for 4 years. 04-19-2024 Results Test Name Value Interpretation Reference Range Facility Topiramate, Serumon 11-26-19 25 TOPIRAMATE 8.6 ug/mL Normal 2.0-25.0 [facility] Comment on above: Result Comment: Dete ction Limit = 1.5 Performed at: - [facility] [id number] Speaker Mounter: Tammy Thomason MD, Phone: [phone] Performed By: #### L 503.5510, L3380.1400 #### [facility] [place], [address] Neurology Visit Reporton Neurology Visit Report [facility] [address] [facility] [address] [facility] [address] [facility], [address] [place] [address] OFFICE VISIT Date of Service: 11/21/24 MR#: [id number] Acct: [id number] Name: LILY GUILLERMO Rep #: [id number] : 1950 Provider: FRANSISCO marin Age/Sex: 74/F Location: [facility]. Status: Signed HPI HPI Chief Complaint: 1 month follow-up Details: History of present illness: Mrs. Guillermo is a 74-year-old female who established with neurology on 09/17/2024 for complaints of worsening headaches. She was referred by [facility]. Pertinent past medical history includes breast cancer with chemo (2000) s/p mastectomy and total hysterectomy and now in remission, right knee surgery (March 2024), diverticulosis, gallstones, incontinence, anxiety, and insomnia. 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 She has no known thyroid disorder. She is not diabetic. She is a non-smoker and does not use illicit drugs or consume EtOH. Neurological history includes a history of a benign brain tumor removal in 1970 with [employer] shunt placement (not MRI compatible per patient). 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 Her last seizure was approximately 4 years ago. Other residual deficits post tumor debulking included left-sided sensory loss. Her presenting complaint was worsening headaches with increased frequency, duration, and severity over the past 5 to 6 weeks. The headaches were present upon wakening and sometimes would wake the patient from sleep. Frequency was reported 5 days/week lasting with duration reported to be majority of the day. Location is across the frontal region of her head. There was no associated nausea and vomiting. Triggers are reported to be increased stress. Alleviating factors are rest and Tylenol. Patient also has a cognitive impairment. There is a family history of dementia, likely Alzheimer's type. I do not believe patient would be a great candidate for amyloid targeted therapy therefore serum blood biomarkers for Alzheimer's disease were deferred. The most pressing concern was hydrocephalus with increased ICP due to [employer] shunt malfunction. It is unclear if her [employer] shunt is functioning properly, she has not seen a neurosurgeon in several years so a referral was placed to further evaluate. There was no recent neuroimaging, and given the concern of hydrocephalus, a stat CT brain was ordered. These images were reviewed with Dr. Berry on 09/17/2024. There was no evidence of hydrocephalus on CT imaging. CT brain (09/17/2024) impression is as follows: No intracranial hemorrhage or other acute process is noted, no ventriculomegaly is seen, no extra-axial fluid collection is noted, shunt tube in place with tip at or near the third ventricle. Interim history: Mrs. Guillermo presents today 11/21/2024 for a 1 month follow-up. She is accompanied by her and daughter. Patient has not had any further seizures with last reported seizure >4 years ago. However, described nighttime tremoring in which patient treats with Valium as needed. This occurs approximately 2 times per month. She takes topiramate for her seizure disorder. Headaches were also persistent occurring 3 to 5 days/week. Nocturnal seizures were a possible etiology of her headaches. Given these findings, a topiramate level and several other labs were checked and her topiramate dose was subsequently increased from 50mg QAM / 100Mg QHS to 50mg QAM / 150mg QHS. A previously increased morning dose resulted in daytime sedation. Patient is tolerating the increased dose of topiramate very well. She denies daytime somnolence. Headache frequency and intensity has significantly decreased on review of patient's headache diary. She is experiencing 2 mild headaches per week. She occasionally takes Excedrin or Tylenol. There has almost been complete resolution of her reported tremor episodes at night. Considering this, the etiology of her headaches were likely seizure related. A routine EEG was declined by the patient/family at this time since there has been improvement of her symptoms. A long-term EEG and referral to an epilepsy center could also be considered. Another factor to consider is that the increased topiramate dose resulted in a reduced CSF production in turn reducing intracranial pressure, especially considering her history of [employer] shunt. Neurosurgery evaluation of her [employer] shunt is recommended but patient/family would like to defer at this time. Patient is to follow-up with ophthalmology and has an upcoming appointment. Her cognitive impairment is reported to be unchanged since her previous visit. ROS: Per HPI, essentially unchanged from previou (more content not included)... Normal [facility] No Panel Informationon 11-21 TOPIRAMATE 8.6 ug/mL Normal 2.0 - 25.0 ug/mL [facility] [employer] [facility]na[facility].; [facility] SYSTEM[facility] HospitalOctapoly [facility] Work Phone: Serum or plasma topiramate m easurement (mass/volume)Ordered By: Radha Morales on 11-21-2024 Topiramate [Mass/Vol] 8.6 ug/mL 2.0-25.0 [facility] Comment on above: Detection Limit = 1. 5Performed at: [facility] [id number] Director: Tammy Thomason MD, Phone: [phone] Venous blood ammonia measure menton 11-21-2024 Ammonia (P) [Moles/Vol] 39.5 umol/L Normal 11-51 [facility]; [employer] [facility] Center[facility] Work Phone: Comment on above: Performed By: #### L 503.5510, L3380.1400 #### [facility] [address] [place], [address] Topiramate, Serumon 10-28-19 25 TOPIRAMATE 6.5 ug/mL Normal 2.0-25.0 [facility] Comment on above: Result Comment: Dete ction Limit = 1.5 Performed at: [facility] [id number] Speaker Mounter: Tammy Thomason MD, Phone: [phone] Performed By: #### L 500.4050, L501.9520, L101.9900, L3380.1400, L503.6150, L501.6710, L100.0100, L501.5200 ####[facility] [id number] [place], [place], [id number] Absolute lymphocyte countOrd ered By: Radha Morales on 10-24-2024 Lymphocytes Auto (Unsp spec) [#/Vol] 1.56 10*3/uL 0.83-4.51 [facility] Absolute neutrophil countOrd ered By: Radha Morales on 10-24-2024 Neutrophils (Bld) [#/Vol] 3.6 10*3/uL 2.0-7.7 [facility] Anion gap in Serum or Plasma Ordered By: Radha Morales on 10-24-2024 Anion gap [Moles/Vol] 12 mmol/L 5-15 [facility] Automated lymphocyte count a s percentage of total leukocytesOrdered By: Radha Carmen on 10-24-2024 Lymphocytes/100 WBC Auto (Unsp spec) 25.7 % - [facility] BUN/creatinine ratioOrdered By: Radhajohn Morales on 10-24-2024 Urea nitrogen/Creatinine [Mass ratio] 19.6 mg/mg 10- [facility] Basophil percentageOrdered B y: Radha Morales on 10-24-2024 Basophils/100 WBC (Bld) 0.7 % 0-1 [facility] Bilirubin, totalOrdered By: Radhajohn Morales on 10-24-2024 Bilirubin [Mass/Vol] 0.39 mg/dL 0.00-1.30 [facility] CBC W/Diff, Automatedon 10-15 Absolute Lymph 1.56 X10 3/uL Normal 0.83-4.51 [facility] Comment on above: Performed By: #### L 500.4050, L501.9520, L101.9900, L3380.1400, L503.6150, L501.6710, L100.0100, L501.5200 #### [facility] [address] [place], [address] Absolute Neut 3.6 X10 3/uL Normal 2.0-7.7 [facility] Comment on above: Performed By: #### L 500.4050, L501.9520, L101.9900, L3380.1400, L503.6150, L501.6710, L100.0100, L501.5200 #### [facility] [address] [place], [address] Basophils/100 WBC (Bld) 0.7 % Normal 0-1 [facility] Comment on above: Performed By: #### L 500.4050, L501.9520, L101.9900, L3380.1400, L503.6150, L501.6710, L100.0100, L501.5200 #### [facility] [address] [place], [address] Eosinophils/100 WBC (Bld) 3.0 % Normal 0-5 [facility] Comment on above: Performed By: #### L 500.4050, L501.9520, L101.9900, L3380.1400, L503.6150, L501.6710, L100.0100, L501.5200 #### [facility] [address] [place], [address] Erythrocyte distribution width (RBC) [Ratio] 14.3 % Normal 11.6-14.6 [facility] Comment on above: Performed By: #### L 500.4050, L501.9520, L101.9900, L3380.1400, L503.6150, L501.6710, L100.0100, L501.5200 #### [facility] [address] [place], [address] Hematocrit (Bld) [Volume fraction] 40.6 % Normal 37-47 [facility] Comment on above: Performed By: #### L 500.4050, L501.9520, L101.9900, L3380.1400, L503.6150, L501.6710, L100.0100, L501.5200 #### [facility] [address] [place], [address] Hemoglobin (Bld) [Mass/Vol] 13.0 g/dL Normal 12.0-15.0 [facility] Comment on above: Performed By: #### L 500.4050, L501.9520, L101.9900, L3380.1400, L503.6150, L501.6710, L100.0100, L501.5200 #### [facility] [address] [place], [address] IG% 1.300 High 0.0-0.9 [facility] Comment on above: Result Comment: IG% - Immature Granulocytes (promyelocytes, myelocytes and metamyelocytes) > 1% indicates that a LEFT SHIFT is Present. Performed By: #### L 500.4050, L501.9520, L101.9900, L3380.1400, L503.6150, L501.6710, L100.0100, L501.5200 #### [facility] [address] [place], [address] Lymphocytes/100 WBC (Bld) 25.7 % Normal 19-41 [facility] Comment on above: Performed By: #### L 500.4050, L501.9520, L101.9900, L3380.1400, L503.6150, L501.6710, L100.0100, L501.5200 #### [facility] [address] [place], [address] MCH (RBC) [Entitic mass] 31.1 pg Normal 27.0-32.0 [facility] Comment on above: Performed By: #### L 500.4050, L501.9520, L101.9900, L3380.1400, L503.6150, L501.6710, L100.0100, L501.5200 #### [facility] [address] [place], [address] MCHC (RBC) [Mass/Vol] 32.0 g/dL Normal 32-36 [facility] Comment on above: Performed By: #### L 500.4050, L501.9520, L101.9900, L3380.1400, L503.6150, L501.6710, L100.0100, L501.5200 #### [facility] [address] [place], [address] MCV (RBC) [Entitic vol] 97.1 fL Normal 81-99 [facility] Comment on above: Performed By: #### L 500.4050, L501.9520, L101.9900, L3380.1400, L503.6150, L501.6710, L100.0100, L501.5200 #### [facility] [address] [place], [address] Monocytes/100 WBC (Bld) 9.7 % Normal 0-10 [facility] Comment on above: Performed By: #### L 500.4050, L501.9520, L101.9900, L3380.1400, L503.6150, L501.6710, L100.0100, L501.5200 #### [facility] [address] [place], [address] Neutrophils/100 WBC (Bld) 59.6 % Normal 47-70 [facility] Comment on above: Performed By: #### L 500.4050, L501.9520, L101.9900, L3380.1400, L503.6150, L501.6710, L100.0100, L501.5200 #### [facility] [address] [place], [address] Nucleated RBC (Bld) [#/Vol] 0 10*3/uL Normal 0-5 [facility] Comment on above: Performed By: #### L 500.4050, L501.9520, L101.9900, L3380.1400, L503.6150, L501.6710, L100.0100, L501.5200 #### [facility] [address] [place], [address] Platelet mean volume (Bld) [Entitic vol] 12.1 fL High 6.2-12.0 [facility] Comment on above: Performed By: #### L 500.4050, L501.9520, L101.9900, L3380.1400, L503.6150, L501.6710, L100.0100, L501.5200 #### [facility] [address] [place], [address] Platelets (Bld) [#/Vol] 182 10*3/uL Normal 150-450 [facility] Comment on above: Performed By: #### L 500.4050, L501.9520, L101.9900, L3380.1400, L503.6150, L501.6710, L100.0100, L501.5200 #### [facility] [address] [place], [address] RBC (Bld) [#/Vol] 4.18 10*6/uL Low 4.2-5.4 [facility] Comment on above: Performed By: #### L 500.4050, L501.9520, L101.9900, L3380.1400, L503.6150, L501.6710, L100.0100, L501.5200 #### [facility] [address] [place], [address] RDW SD 51.4 fl High 35.1-43.9 [facility] Comment on above: Performed By: #### L 500.4050, L501.9520, L101.9900, L3380.1400, L503.6150, L501.6710, L100.0100, L501.5200 #### [facility] [address] [place], [address] WBC (Bld) [#/Vol] 6.1 10*3/uL Normal 4.4-11.0 [facility] Comment on above: Performed By: #### L 500.4050, L501.9520, L101.9900, L3380.1400, L503.6150, L501.6710, L100.0100, L501.5200 #### [facility] [address] [place], [address] CRPon 10-24-2024 C-REACTIVE PROT < 3.00 Normal 0.0-3.0 [facility] Comment on above: Performed By: #### L 500.4050, L501.9520, L101.9900, L3380.1400, L503.6150, L501.6710, L100.0100, L501.5200 ####[facility] [id number] [place], [address] Carbon dioxide, total [Moles /volume] in Central venous bloodOrdered By: Radha Morales on 10-24-2024 CO2 [Moles/Vol] 21.8 mmol/L 21.0-32.0 [facility] Chloride assayOrdered By: Nico Morales on 10-24-2024 Chloride [Moles/Vol] 107 mmol/L 98-108 [facility] Comprehensive Metabolic Prof ilon 10-24-2024 Albumin [Mass/Vol] 4.3 g/dL Normal 3.4-4.8 [facility] Comment on above: Performed By: #### L 500.4050, L501.9520, L101.9900, L3380.1400, L503.6150, L501.6710, L100.0100, L501.5200 #### [facility] [address] [place], [address] Albumin/Globulin [Mass ratio] 1.6 {ratio} Normal 0.9-2.4 [facility] Comment on above: Performed By: #### L 500.4050, L501.9520, L101.9900, L3380.1400, L503.6150, L501.6710, L100.0100, L501.5200 #### [facility] [address] [place], [address] ALK PHOS 74 U/L Normal 35-104 [facility] Comment on above: Performed By: #### L 500.4050, L501.9520, L101.9900, L3380.1400, L503.6150, L501.6710, L100.0100, L501.5200 #### [facility] [address] [place], [address] ALT [Catalytic activity/Vol] 22 U/L Normal <=34 [facility] Comment on above: Performed By: #### L 500.4050, L501.9520, L101.9900, L3380.1400, L503.6150, L501.6710, L100.0100, L501.5200 #### [facility] [address] [place], [address] AST [Catalytic activity/Vol] 25 U/L Normal <=31 [facility] Comment on above: Performed By: #### L 500.4050, L501.9520, L101.9900, L3380.1400, L503.6150, L501.6710, L100.0100, L501.5200 #### [facility] [address] [place], [address] Bilirubin [Mass/Vol] 0.39 mg/dL Normal 0.00-1.30 [facility] Comment on above: Performed By: #### L 500.4050, L501.9520, L101.9900, L3380.1400, L503.6150, L501.6710, L100.0100, L501.5200 #### [facility] [address] [place], [address] BUN/CRE 19.6 RATIO Normal 10-20 [facility] Comment on above: Performed By: #### L 500.4050, L501.9520, L101.9900, L3380.1400, L503.6150, L501.6710, L100.0100, L501.5200 #### [facility] [address] [place], [address] Calcium [Mass/Vol] 9.8 mg/dL Normal 7.6-11.0 [facility] Comment on above: Performed By: #### L 500.4050, L501.9520, L101.9900, L3380.1400, L503.6150, L501.6710, L100.0100, L501.5200 #### [facility] [address] [place], [address] Chloride [Moles/Vol] 107 mmol/L Normal 98-108 [facility] Comment on above: Performed By: #### L 500.4050, L501.9520, L101.9900, L3380.1400, L503.6150, L501.6710, L100.0100, L501.5200 #### [facility] [address] [place], [address] CO2 [Moles/Vol] 21.8 mmol/L Normal 21.0-32.0 [facility] Comment on above: Performed By: #### L 500.4050, L501.9520, L101.9900, L3380.1400, L503.6150, L501.6710, L100.0100, L501.5200 #### [facility] [address] [place], [address] Creatinine [Mass/Vol] 0.79 mg/dL Normal 0.70-1.20 [facility] Comment on above: Performed By: #### L 500.4050, L501.9520, L101.9900, L3380.1400, L503.6150, L501.6710, L100.0100, L501.5200 #### [facility] [address] [place], [address] GAP 12 Normal 5-15 [facility] Comment on above: Performed By: #### L 500.4050, L501.9520, L101.9900, L3380.1400, L503.6150, L501.6710, L100.0100, L501.5200 #### [facility] [address] [place], [address] GFR/1.73 sq M.predicted among non-blacks MDRD (S/P/Bld) [Vol rate/Area] 79 mL/min/{1.73_m2} Normal >60 [facility] Comment on above: Result Comment: mL/m in/1.73m2 CKD-EPI Creatinine Equation (2020) Performed By: #### L 500.4050, L501.9520, L101.9900, L3380.1400, L503.6150, L501.6710, L100.0100, L501.5200 #### [facility] [address] [place], [address] Globulin (S) [Mass/Vol] 2.7 g/dL Normal 2.2-4.2 [facility] Comment on above: Performed By: #### L 500.4050, L501.9520, L101.9900, L3380.1400, L503.6150, L501.6710, L100.0100, L501.5200 #### [facility] [address] [place], [address] Glucose [Mass/Vol] 93 mg/dL Normal 70-99 [facility] Comment on above: Performed By: #### L 500.4050, L501.9520, L101.9900, L3380.1400, L503.6150, L501.6710, L100.0100, L501.5200 #### [facility] [address] [place], [address] Potassium [Moles/Vol] 4.0 mmol/L Normal 3.3-5.1 [facility] Comment on above: Performed By: #### L 500.4050, L501.9520, L101.9900, L3380.1400, L503.6150, L501.6710, L100.0100, L501.5200 #### [facility] [address] [place], [address] Sodium [Moles/Vol] 140 mmol/L Normal 133-145 [facility] Comment on above: Performed By: #### L 500.4050, L501.9520, L101.9900, L3380.1400, L503.6150, L501.6710, L100.0100, L501.5200 #### [facility] [address] [place], [address] T PROT 6.9 g/dL Normal 5.9-8.4 [facility] Comment on above: Performed By: #### L 500.4050, L501.9520, L101.9900, L3380.1400, L503.6150, L501.6710, L100.0100, L501.5200 #### [facility] [address] [place], [address] Urea nitrogen [Mass/Vol] 16 mg/dL Normal 4-19 [facility] Comment on above: Performed By: #### L 500.4050, L501.9520, L101.9900, L3380.1400, L503.6150, L501.6710, L100.0100, L501.5200 #### [facility] [address] [place], [address] Eosinophil percentageOrdered By: Radha Morales on 10-24-2024 Eosinophils/100 WBC (Bld) 3.0 % 0-5 [facility] Erythrocyte Sed Rateon 10-24 SED RATE 4 mm/hr Normal 0-30 [facility] Comment on above: Performed By: #### L 500.4050, L501.9520, L101.9900, L3380.1400, L503.6150, L501.6710, L100.0100, L501.5200 #### [facility] [address] [place], [address] Erythrocyte distribution wid th ratioOrdered By: Radha Morales on 10-24-2024 Erythrocyte distribution width (RBC) [Ratio] 14.3 % 11.6-14.6 [facility] Erythrocyte distribution wid th standard deviationOrdered By: Radha Morales on 10-24-2024 Erythrocyte distribution width (RBC) [Ratio] 51.4 fl High 35.1-43.9 [facility] Erythrocyte sedimentation ra teOrdered By: Radha Morales on 10-24-2024 ESR (Bld) [Velocity] 4 mm/h 0-30 [facility] Glomerular filtration rate ( GFR) estimation/1.73 sq m using serum, plasma, or whole bOrdered By: Radha Morales on 10-24-2024 GFR/1.73 sq M.predicted among non-blacks MDRD (S/P/Bld) [Vol rate/Area] 79 mL/min/{1.73_m2} >60 [facility] Comment on above: mL/min/1.73m2 CKD-EP I Creatinine Equation (2020) Hematocrit Auto (Bld) [Volum e fraction]Ordered By: Radha Morales on 10-24-2024 Hematocrit (Bld) [Volume fraction] 40.6 % 37-47 [facility] Hemoglobin measurementOrdere d By: Radha Morales on 10-24-2024 Hemoglobin (Bld) [Mass/Vol] 13.0 g/dL 12.0-15.0 [facility] Immature granulocytes/100 WB C Auto (Bld)Ordered By: Radha Morales on 10-24-2024 Immature granulocytes/100 WBC (Bld) 1.300 % High 0.0-0.9 [facility] Comment on above: IG% - Immature Granu locytes (promyelocytes, myelocytes and metamyelocytes) > 1% indicates that a LEFT SHIFT is Present. Ironon 10-24-2024 Iron [Mass/Vol] 74 ug/dL Normal 50-170 [facility] Comment on above: Performed By: #### L 500.4050, L501.9520, L101.9900, L3380.1400, L503.6150, L501.6710, L100.0100, L501.5200 ####[facility] [id number] [place], [place], [address] Iron measurement (mass/mass) Ordered By: Radha Morales on 10-24-2024 Iron (Unsp spec) [Mass/Mass] 74 ug/dL 50-170 [facility] - Chemistry and C hemistry - challengeOrdered By: Radha Morales on 10-24-2024 AST [Catalytic activity/Vol] 25 U/L <32 [facility] MCV (mean corpuscular volume ) determinationOrdered By: Radha Morales on 10-24-2024 MCV (RBC) [Entitic vol] 97.1 fL 81-99 [facility] Magnesiumon 10-24-2024 Magnesium [Mass/Vol] 2.4 mg/dL High 1.5-2.2 [facility] Comment on above: Performed By: #### L 500.4050, L501.9520, L101.9900, L3380.1400, L503.6150, L501.6710, L100.0100, L501.5200 ####[facility] [address] [facility] [place], [place], [id number] Magnesium measurement (mass/ volume)Ordered By: Radha Morales on 10-24-2024 Magnesium (Unsp spec) [Mass/Vol] 2.4 mg/dL High 1.5-2.2 [facility] Mean corpuscular hemoglobin (MCH) determinationOrdered By: Radha Moraels on 10-24-2024 MCH (RBC) [Entitic mass] 31.1 pg 27.0-32.0 [facility] Mean corpuscular hemoglobin concentration (MCHC) determinationOrdered By: Radha Morales on 10-24-2024 MCHC (RBC) [Mass/Vol] 32.0 g/dL 32-36 [facility] Mean platelet volume determi nationOrdered By: Radha Morales on 10-24-2024 Platelet mean volume (Bld) [Entitic vol] 12.1 fL High 6.2-12.0 [facility] Monocyte percentageOrdered B y: Radha Morales on 10-24-2024 Monocytes/100 WBC (Bld) 9.7 % 0-10 [facility] Neurology Visit Reporton Neurology Visit Report [facility] [address] [facility] [place] [address] OFFICE VISIT Date of Service: 10/24/24 MR#: [id number] Acct: [id number] Name: LILY GUILLERMO Rep #: [id number] : 1950 Provider: FRANSISCO marin Age/Sex: 74/F Location: [facility]. Status: Signed with Addenda ADDENDUM by FRANSISCO Morales on 10/29/24 at 1508 Addendum Spoke with patient's daughter regarding lab results. Topiramate dose will be increased at this time from 50mg QAM /100Mg QHS to 50mg QAM / 150mg QHS as a previously increased morning dose resulted in daytime sedation. A topiramate and ammonia level will be checked at the next office visit in November. Daughter repeated directions and voiced understanding. She will reach out to the office with any questions/concerns or if patient is in need of a refill prior to her appointment. At this time, patient and family wish to defer neurosurgery evaluation of shunt. EEG was also declined. It is difficult for the patient to travel for appointments. Assessment for necessity will be conducted after evaluation of increased topiramate dose and review of headache diary at next office visit. 10/29/24 1508 Date Radha Morales cc: * Signed HPI [facility] Chief Complaint: 1 month follow-up Details: History of present illness: Mrs. Guillermo is a 74-year-old female who established with neurology on 09/17/2024 for complaints of worsening headaches. She was referred by [facility]. Pertinent past medical history includes breast cancer with chemo (2000) s/p mastectomy and total hysterectomy and now in remission, right knee surgery (March 2024), diverticulosis, gallstones, incontinence, anxiety, and insomnia. 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 She has no known thyroid disorder. She is not diabetic. She is a non-smoker and does not use illicit drugs or consume EtOH. Neurological history includes a history of a benign brain tumor removal in 1970 with [employer] shunt placement (not MRI compatible per patient). 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 Her last seizure was approximately 4 years ago. Other residual deficits post tumor debulking included left-sided sensory loss. Her presenting complaint was worsening headaches with increased frequency, duration, and severity over the past 5 to 6 weeks. The headaches were present upon wakening and sometimes would wake the patient from sleep. Frequency was reported 5 days/week lasting with duration reported to be majority of the day. Location is across the frontal region of her head. There was no associated nausea and vomiting. Triggers are reported to be increased stress. Alleviating factors are rest and Tylenol. Patient also has a cognitive impairment. There is a family history of dementia, likely Alzheimer's type. The most pressing concern was hydrocephalus with increased ICP due to [employer] shunt malfunction. It is unclear if her [employer] shunt is functioning properly, she has not seen a neurosurgeon in several years so a referral was placed. There was no recent neuroimaging, and given the concern of hydrocephalus, a stat CT brain was ordered. These images were reviewed with Dr. Berry on 09/17/2024. There was no evidence of hydrocephalus on CT imaging. CT brain (09/17/2024) impression is as follows: No intracranial hemorrhage or other acute process is noted, no ventriculomegaly is seen, no extra-axial fluid collection is noted, shunt tube in place with tip at or near the third ventricle. Interim history: Mrs. Guillermo presents today 10/24/2024 for a 1 month follow-up. She is accompanied by her and daughter. Patient has not had [employer] shunt evaluated by neurosurgery. A referral was placed at her previous visit. This will be refaxed over to [facility]. Headaches are essentially unchanged from her previous visit. Frequency is 3 to 5 days/week with severe headaches occurring 2 times weekly. Tylenol and rest are effective. Patient takes Tylenol usually twice per week. Patient has not had any further seizures with last reported seizure >4 years ago. There is a concern raised for nocturnal seizures. describes nighttime tremoring in which patient treats with Valium as needed. This occurs approximately 2 times per month. She currently takes topiramate 50 mg every morning and 100 mg every afternoon. Nocturnal seizures may be the etiology of her headaches. A long-term EEG and referral to an epilepsy center will be considered. This will be determined after neurosurgery evaluation of her [employer] shunt along with conducting several laboratory studies, including a topiramate level. Patient may need an increase in her topiramate dosage or possibly switch to an alterna (more content not included)... Normal [facility] Neutrophil percentageOrdered By: Radha Morales on 10-24-2024 Neutrophils/100 WBC (Bld) 59.6 % 47-70 [facility] Nucleated red blood cell per centageOrdered By: Radha Morales on 10-24-2024 Nucleated RBC/100 WBC (Bld) [Ratio] 0 % 0-5 [facility] Platelet countOrdered By: Nico Morales on 10-24-2024 Platelets (Bld) [#/Vol] 182 10*3/uL 150-450 [facility] Potassium measurement (mass/ volume)Ordered By: Radha Morales on 10-24-2024 Potassium (Unsp spec) [Mass/Vol] 4.0 mmol/L 3.3-5.1 [facility] RBC Auto (Bld) [#/Vol]Ordere d By: Radha Morales on 10-24-2024 RBC (Bld) [#/Vol] 4.18 10*6/uL Low 4.2-5.4 [facility] Serum creatinine measurement (mass/volume)Ordered By: Radha Morales on 10-24-2024 Creatinine [Mass/Vol] 0.79 mg/dL 0.70-1.20 [facility] Serum globulin measurementOr dered By: Radha Morales on 10-24-2024 Globulin (S) [Mass/Vol] 2.7 g/dL 2.2-4.2 [facility] Serum glucose measurement (m ass/volume)Ordered By: Radha Morales on 10-24-2024 Glucose [Mass/Vol] 93 mg/dL 70-99 [facility] Serum or plasma C reactive p rotein measurement (mass/volume)Ordered By: Radha Morales on 10-24-2024 CRP [Mass/Vol] mg/L 0.0-3.0 [facility] Serum or plasma alanine villegas otransferase (ALT) measurementOrdered By: Radha Morales on 10-24-2024 ALT [Catalytic activity/Vol] 22 U/L <35 [facility] Serum or plasma albumin kimberly urement (mass/volume)Ordered By: Radha Morlaes on 10-24-2024 Albumin [Mass/Vol] 4.3 g/dL 3.4-4.8 [facility] Serum or plasma albumin/glob ulin mass ratioOrdered By: Radha Morales on 10-24-2024 Albumin/Globulin [Mass ratio] 1.6 {ratio} 0.9-2.4 [facility] Serum or plasma alkaline emeka sphatase measurementOrdered By: Radha Morales on 10-24-2024 ALP [Catalytic activity/Vol] 74 U/L 35-104 [facility] Serum or plasma calcium kimberly urement (mass/volume)Ordered By: Radha Morales on 10-24-2024 Calcium [Mass/Vol] 9.8 mg/dL 7.6-11.0 [facility] Serum or plasma topiramate m easurement (mass/volume)Ordered By: Radha Morales on 10-24-2024 Topiramate [Mass/Vol] 6.5 ug/mL 2.0-25.0 [facility] Comment on above: Detection Limit = 1. 5Performed at: code-laboration - [facility] [address] [id number] Director: Tammy Thomason MD, Phone: [phone] Serum or plasma urea nitroge n measurement (mass/volume)Ordered By: Radha Morales on 10-24-2024 Urea nitrogen [Mass/Vol] 16 mg/dL 4-19 [facility] Sodium levelOrdered By: June Morales on 10-24-2024 Sodium [Moles/Vol] 140 mmol/L 133-145 [facility] TSH DL <= 0.005 mIU/L QnOrde red By: Radha Morales on 10-24-2024 TSH Qn 4.070 uIU/mL 0.300-4.200 [facility] Thyroid Stim Hormone (TSH)on 10-24-2024 TSH 4.070 uIU/mL Normal 0.300-4.200 [facility] Comment on above: Performed By: #### L 500.4050, L501.9520, L101.9900, L3380.1400, L503.6150, L501.6710, L100.0100, L501.5200 #### [facility] [address] [facility] [place], [address] Total proteinOrdered By: Sarahy Morales on 10-24-2024 Protein [Mass/Vol] 6.9 g/dL 5.9-8.4 [facility] White blood cell (WBC) count Ordered By: Radha Morales on 10-24-2024 WBC (Bld) [#/Vol] 6.1 10*3/uL 4.4-11.0 [facility] Brain/Head without Contrasto n 09-17-2024 Brain/Head without Contrast [facility] [address] [place], [place] [id number] Brain/Head without Contrast MR#: [id number] Acct: [id number] Name: LILY GUILLERMO Rep #: [id number] : 1950 F 74 From: Cullen Marr PCP: Care Physician,No Primary Status: REG CLI Study: Brain/Head without Contrast Date of Exam: 07/09 Exam# [id number] Ordering Dr: Radha Morales VIOLIN REPAIRER-C PROCEDURE: BRAIN/HEAD WITHOUT CONTRAST 09/17/2024 REASON FOR EXAM: HX OF TUMOR REMOVAL / [employer] SHUNT (1970), HEADACHES TECHNIQUE: Head CT without intravenous contrast. Coronal and Sagittal reconstruction series were provided. One or more dose reduction techniques were used (e.g., Automated exposure control, adjustment of the mA and/or kV according to patient size, use of iterative reconstruction technique. RADIATION DOSE SUMMARY: CTDlvol: 44.99 mGy DLP: 829.85 mGycm COMPARISON: None provided. FINDINGS: This evaluation is significantly limited by lack of a prior comparison study. Brain: Prior right craniotomy site noted. Areas of frontotemporal white matter hypodensity are consistent with postsurgical changes and gliosis. A right shunt tube is in place, with tip at or near the 3rd ventricle. No significant 3rd and lateral ventricular enlargement is seen. No sulcal effacement is evident. No extra-axial fluid collection is seen. No intracranial hemorrhage is noted Sinuses/Mastoids: Clear at visualized levels Bones: No acute osseous process is seen CT/Brain/Head without Contrast IMPRESSION: 1. No intracranial hemorrhage or other acute process is noted. 2. No ventriculomegaly is seen. 3. No extra-axial fluid collection is noted. 4. Shunt tube in place, with tip at or near the 3rd ventricle. 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 Status: Signed HPI HPI Chief Complaint: Establish care Details: Mrs. Guillermo is a 74-year-old female who presents to neurology today 09/17/2024 to establish care for worsening headaches. She was referred by [facility]. Patient is accompanied by her . Pertinent past medical history includes breast cancer with chemo (2000) s/p mastectomy and total hysterectomy and now in remission, right knee surgery (March 2024), diverticulosis, gallstones, incontinence, anxiety, and insomnia. 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 She has no known thyroid disorder. She is not diabetic. She is a non-smoker and does not use illicit drugs or consume EtOH. Neurological history includes a history of a benign brain tumor removal in 1970 with [employer] shunt placement (not MRI compatible per patient). 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 Her last seizure was approximately 4 years ago. There is a family history of dementia, likely Alzheimer's type. Today her primary concern was worsening headaches with increased frequency, duration, and severity over the past 5 to 6 weeks. The headaches are present upon wakening and sometimes awaken the patient from sleep. These headaches are occurring approximately 5 days/week lasting throughout majority of the day. They are located across the frontal region of her head. She does not have associated nausea and vomiting. She has some memory concerns and her stated that she has been more forgetful. Her delayed 5-minute recall on exam was 0/3 objects. Triggers are reported to be increased stress. Alleviating factors are rest and Tylenol. The most pressing concern would be hydrocephalus with increased ICP due to [employer] shunt malfunction. It is unclear if her [employer] shunt is functioning properly, she has not seen a neurosurgeon in several years. She does not have any recent neuroimaging. Other differentials for her worsening headache includes but not limited to seizures, acute subdural hematoma, tumor, and sequela of her prior insult. The patient was examined concurrently with Dr. Berry. She has decreased sensation of the left face, left arm, and left leg that has been present since her tumor removal. Her reflexes are suppressed but symmetric bilaterally. She is legally blind. There is no evidence of papilledema on funduscopy. She has some gait instability but this appears to be attributed to her vision loss. ROS: General: No fatigue. No recent weight loss/gain. No recent illness. No fevers. No recent falls. Neuro: Positive for headaches. No dizziness. Chronic left numbness/tingling. No weakness. No tremors. Psych: Positive for insomnia. No agitation. No depressive symptoms. She has symptoms of anxiety. Positive for memory difficulties, forgetful Cardio: No palpitations. No chest pain or discomfort. Positive for B/L leg edema (familial?). Respiratory: Nonsmoker. No cough. No shortness of breath. No wheezing. Musculoskeletal: No use of assistive devices. No neck pain. No back pain. HEENT: Progressive likely age-related hearing loss B/L. She is legally blind. No dysphagia. GI: No hematochezia. No NVD. No constipation. No abdominal pain or discomfort. : No hematuria. She has urgency with associated urinary incontinence. No dysuria. Skin: No ecchymosis. No wounds, rashes, or lesions. Seizures: Last seizure: >4 years ago Initial onset: 1970s post tumor debulking Frequency/duration: Controlled Description: Grand mal, nocturnal Medications: Topiramate 50 mg every morning and 100 mg every evening, PRN Valium Family history: None Headaches: Frequency: 5 days/ per week Severity: Patient unable to grade but described as severe Duration: >8 hours Description: Frontal region, awakens from sleep, present in the morning Triggers: Stress Alleviating factors: Rest Medications: 1-2 Tylenol 500mg tablets daily, topiramate for seizures, magnesium oxide 400 mg daily PHYSICAL EXAM: Constitutional: Well-developed, well-nourished female in no acute distress. Psych: Cooperative. Judgement and insight good. HEENT: Right frontal craniotomy scar. Presbycusis. Periorbital findings are normal. She wears glasses. Respiratory: Normal effort. Symmetric chest movement. Clear to auscultation bilaterally. Cardio: Regular rate an (more content not included)... Normal [facility] Laboratory - Chemistry and C hemistry - challengeon 04-19-2024 Calcium [Mass/Vol] 10.2 mg/dL Normal 8.7 - 10. 3 mg/dL [facility] Chloride [Moles/Vol] 104 mmol/L Normal 96 - 10 6 mmol/L [facility].; [facility], [facility] CO2 [Moles/Vol] 24 mmol/L Normal 20 - 29 mmol/L [facility].; [facility], [facility] Creatinine [Mass/Vol] 0.80 mg/dL Normal 0.57 - 1.00 mg/dL [facility], [facility] GFR/1.73 sq M.predicted among non-blacks MDRD (S/P/Bld) [Vol rate/Area] 77 mL/min/{1.73_m2} Normal [facility]; [facility], [facility] Glucose [Mass/Vol] 84 mg/dL Normal 70 - 99 mg/dL [facility], [facility] Potassium [Moles/Vol] 4.2 mmol/L Normal 3.5 - 5.2 mmol/L [facility].; [facility], [facility] Sodium [Moles/Vol] 140 mmol/L Normal 134 - 144 mmol/L [facility].; [facility], [facility]. Urea nitrogen [Mass/Vol] 21 mg/dL Normal 8 - 27 mg/dL [facility], [facility] Urea nitrogen/Creatinine [Mass ratio] 26 mg/mg Normal 12 - 28 [facility], [facility] Final Surgical Pathology Rep [facility] 08-21-2023 Final Surgical Pathology Report . Pathology Reports Accession: Collected Date/Time: Received Date/Time: Pathologist: [id number] 08/16/2023 09:08 EDT 08/18/2023 09:08 EDT CLAUDE DOSS MD Final Surgical Pathology Report DIAGNOSIS: A. COLON POLYP BIOPSY AT 55 CM: - TUBULAR ADENOMA AND MARKED MELANOSIS COLI B. COLON POLYP BIOPSY AT 110 CM: - HYPERPLASTIC POLYP AND MARKED MELANOSIS COLI COMMENT: [facility] - [id number] CLINICAL INFORMATION: HISTORY OF POLYPS SPECIMEN: A COLON POLYP BX @ 55 CM B COLON POLYP BX @ 110 CM GROSS DESCRIPTION: All parts labelled with patient name and [id number] A. Received in formalin labeled colon polyp biopsy at 55 cm are 2 nrei tissue fragments measuring 0.1 and 0.3 cm. TS-1 B. Received in formalin labeled colon polyp biopsy at 110 cm are multiple neri to black tissue fragments aggregating 1.5 x 0.3 x 0.2 cm. TS-1 Lisa Dwyer, Grossing Car Shunter/ Dr. Claude Doss, Pathologist Dictated by Lisa Dwyer MICROSCOPIC DESCRIPTION: The microscopic examination is performed, except in the case of Gross Only. Electronically Signed by Pathology Report verified by [facility] CLAUDE DOSS Sign out Date: 08/21/2023 13:48 Performing Lab: [facility], [address] [place] [address] Pathology Dept Disclaimer If ancillary studies were utilized, the following Laboratory Developed Test (LDT) disclaimer will apply: Under CLIA requirements, [facility] is qualified to perform high complexity testing. For all ancillary stains, positive and negative controls stain appropriately. Performance characteristics of immunohistochemical and chromogenic in-situ hybridization tests have been determined by [facility]. These tests are used for clinical purposes, They should not be regarded as investigational or for research. Normal [facility] OPERATIVE PROCEDURESon 08-16 OPERATIVE PROCEDURES [facility] OPERATIVE REPORT NAME ACCOUNT SEX AGE ADMIT DISCHARGE PT MED. RECORD# NUMBER DATE DATE TYPE TWIN, [id number] F 73 08/16/23 08/16/23 2 LILY David [id number] ROOM: [facility] DATE OF : 1950 DICTATING PHYSICIAN: Essie Oakes DATE OF SURGERY: August 16, 2023 SURGEON: Essie Oakes MD WET SANDER: ANESTHESIOLOGIST: Zack Irizarry CRNA ANESTHETIC: PREOPERATIVE DIAGNOSIS: POSTOPERATIVE DIAGNOSES: 1. Screening colonoscopy. 2. Colonic polyps. 3. Diverticulosis. 4. Melanosis coli. 5. Hemorrhoids. OPERATION PERFORMED: Screening colonoscopy with biopsy and polypectomy. COMPLICATIONS: ESTIMATED BLOOD LOSS: Minimal. SPECIMEN: Biopsy/polyps at 55 cm, 110 cm, all sent to Pathology. DISPOSITION: Stable to recovery. INDICATIONS: Lily Guillermo is a 73-year-old female who has a prior history of multiple polyps. DESCRIPTION OF OPERATION: After informed consent and intravenous fluids, she had been brought to endoscopy, placed on a padded gurney in left lateral decubitus position with adequate padding at pressure points, and time-out and verification had been done appropriately. She was given sedation per Anesthesia with monitoring Page 1 of 2 LILY GUILLERMO Operative Report LILY GUILLERMO : 1950 throughout. A digital examination showed external hemorrhoidal tags, normal tone, and no discrete mass. There are some internal tags. The Olympus CF-TF200M flexible endoscope was introduced through the anal verge and carefully advanced protecting the surrounding mucosa. 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 The scope was advanced through the rectal vault and then through the sigmoid colon, which is rather tortuous. The scope was advanced into the descending colon. At about 55 cm is a sessile, pinkish, polypoid structure slightly oblong approximately 0.7 cm at its widest point. This was biopsied and mostly obliterated with the cold grasp forceps standard technique. There was good hemostasis. The scope was advanced beyond the splenic flexure, transverse colon, hepatic flexure, ascending colon toward the ileocecal junction area. The landmarks were noted and documented. The prep was fair, and with copious irrigation and suctioning the view improved. In this area, there were numerous small polyps, which were mostly sessile and small, the largest one was slightly oblong about 0.8 cm. Multiple biopsies were taken of these areas. There was good hemostasis. The scope was withdrawn with circumferential visualization, irrigation, suctioning, and back and forth movement. There were no other worrisome findings encountered. The biopsies at 110 cm were sent to Pathology. The specimens from 55 cm were sent to Pathology. The scope was carefully withdrawn through the transverse, descending, and sigmoid colon down into the rectal vault, the scope was retroflexed, rotated, straightened out, and withdrawn with decompression. There are some internal and external hemorrhoids, but there is no tear or fissure. The patient tolerated the procedure well, was awakened, and sent to recovery room in good condition. The case will be discussed with the patient when the patient is more awake and alert, and follow-up will be determined by Pathology. Dictated By: Essie Oakes MD 08/16/23 12:47 JOB #: [id number] Transcribed By: am 08/16/23 15:35 Electronically signed by: E-Sign Dr. Essie Oakes MD 08/17/23 17:43 Page 2 of 2 LILY GUILLERMO Operative Report Normal [facility] CHEST 2 VIEWSon 05-11-2023 CHEST 2 VIEWS [place] [address] Patient: LILY GUILLERMO. Phone#: : 1950 Age: 73 Gender: F Pt. Type: Out Account: [id number] [facility] Exam Date: 05/11/2023/17:10 Family Phys: Charge Code: [id number] Physician: Pershing Order #: [id number] Dose#: PROCEDURE: X-RAY CHEST 2 VIEWS COMPARISON: [facility], XR, CHEST 2 VIEWS, 06/04/2021, 12:19. INDICATIONS: Possible Pneumonia. FINDINGS: LUNGS: Normal. No significant pulmonary parenchymal abnormalities. VASCULATURE: Normal. Unremarkable pulmonary vasculature. CARDIAC: Mild stable cardiomegaly. MEDIASTINUM: Aorta is ectatic. PLEURA: Normal. No effusion or pleural thickening. BONES: Normal. No fracture or visible bony lesion. 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 CONCLUSION: No acute disease. No significant change has occurred. Dictated by: Keya Contreras MD on 05/11/2023 at 17:24 Approved by: Keya Contreras MD on 05/11/2023 at 17:26 Normal [facility] IRONon 04-29-2023 Iron [Mass/Vol] 18 ug/dL Low 50 - 170 [facility] Comment on above: Performed By: #### 2 [id number] #### [facility],[address] [place] [address] CMP with eGFRon 04-28-2023 AGE 73 years Normal [facility] Comment on above: Performed By: #### 2 [address]2441 #### [place] [address] Albumin [Mass/Vol] 3.2 g/dL Abnormal 3.4 - 5.0 g/dL [facility] Comment on above: Performed By: #### 2 14800 #### [place] [address] Albumin/Globulin [Mass ratio] 1.0 {ratio} Normal 0.9 - 1.6 [facility] Comment on above: Performed By: #### 2 68742 #### [place] [address] ALK PHOS 81 U/L Normal 46 - 116 U/L [facility] Comment on above: Performed By: #### 2 65177 #### [place] [address] ALT [Catalytic activity/Vol] 30 U/L Normal 14 - 59 U/L [facility] Comment on above: Performed By: #### 2 70884 #### [place] [address] Anion gap [Moles/Vol] 15 mmol/L Normal 10 - 2 0 mmol/L [facility] Comment on above: Performed By: #### 2 20175 #### [place] [id number] AST [Catalytic activity/Vol] 27 U/L Normal 13 - 39 U/L [facility] Comment on above: Performed By: #### 2 91033 #### [address],[place] [address] B/C RATIO 18 ratio Normal 0 - 30 [facility] Comment on above: Performed By: #### 2 89292 #### [facility],[address] [place] [address] Bilirubin [Mass/Vol] 0.3 mg/dL Normal 0.2 - 1 .0 mg/dL [facility], [facility].; [facility] Comment on above: Performed By: #### 2 04613 #### [facility],[address] [place] [address] Calcium [Mass/Vol] 9.3 mg/dL Normal 8.5 - 10. 1 mg/dL [facility], [facility].; [facility] Comment on above: Performed By: #### 2 01877 #### [place] [address] Chloride [Moles/Vol] 106 mmol/L Normal 98 - 10 7 mmol/L [facility], [facility].; [facility] Comment on above: Performed By: #### 2 37465 #### [place] [address] CMP with eGFR Normal [facility] Comment on above: Result Comment: COMP REHENSIVE METABOLIC PANEL Performed By: #### 2 91719 #### [place] [address] CO2 [Moles/Vol] 25.0 mmol/L Normal 21.0 - 32.0 mmol/L [facility], [facility].; [facility] Comment on above: Performed By: #### 2 03252 #### [place] [address] Creatinine [Mass/Vol] 0.83 mg/dL Normal 0.55 - 1.02 mg/dL [facility] Comment on above: Performed By: #### 2 92144 #### [address] [address] GFR/1.73 sq M.predicted among non-blacks MDRD (S/P/Bld) [Vol rate/Area] mL/min/{1.73_m2} Normal 60 - 999 [facility] Comment on above: Performed By: #### 2 78519 #### [address] [address] Result Comment: ACCO RDING TO THE NATIONAL KIDNEY DISEASE EDUCATION PROGRAM(NKDE), A NORMAL eGFR IS A VALUE GREATER THAN OR EQUAL TO 60 ML/MIN/1.73 SQ METERS. CHRONIC KIDNEY DISEASE: <60mL/MIN/1.73 SQ METERS KIDNEY FAILURE: <15mL/MIN/1.73 SQ METERS THIS TEST SHOULD ONLY BE USED FOR PATIENTS 18 YEARS OF AGE AND OLDER. Globulin (S) [Mass/Vol] 3.3 g/dL Normal 1.5 - 3.8 g/dL [facility].; [facility], [facility]. Comment on above: Performed By: #### 2 54274 #### [address] [address] Glucose [Mass/Vol] 99 mg/dL Normal 74 - 106 mg/dL [facility], [facility].; [facility], [facility]. Comment on above: Performed By: #### 2 84088 #### [address] [address] Potassium [Moles/Vol] 3.4 mmol/L Abnormal 3.5 - 5.1 mmol/L [facility], [facility]. Comment on above: Performed By: #### 2 38222 #### [address] [address] Protein [Mass/Vol] 6.5 g/dL Normal 6.4 - 8.2 g/dL [facility], [facility].; [facility], [facility]. Comment on above: Performed By: #### 2 73365 #### [place] [address] Sodium [Moles/Vol] 143 mmol/L Normal 136 - 145 mmol/L [facility]; [facility], [facility]. Comment on above: Performed By: #### 2 43596 #### [place] [address] Urea nitrogen [Mass/Vol] 15 mg/dL Normal 7 - 18 mg/dL [facility], [facility]. Comment on above: Performed By: #### 2 48568 #### [place] [address] Laboratory - Chemistry and C hemistry - challengeon 04-28-2023 Albumin [Mass/Vol] 1.0 g/dL Normal 0.9 - 1.6 [facility], [facility].; [facility], [facility]. ALT No additional P-5'-P [Catalytic activity/Vol] 30 U/L Normal 14 - 59 U/L [facility], [facility]. GFR/1.73 sq M.predicted among blacks MDRD (S/P/Bld) [Vol rate/Area] mL/min/{1.73_m2} Normal 60 - 999 {ML/MINUTE} [facility], [facility].; [facility], [facility]. GFR/1.73 sq M.predicted MDRD (S/P/Bld) [Vol rate/Area] mL/min/{1.73_m2} Normal 60 - 999 {ML/MINUTE} [facility], [facility].; [facility] Iron [Mass/Vol] 18 ug/dL Abnormal 50 - 170 ug/dL [facility], [facility].; [facility], [facility]. Urea nitrogen/Creatinine [Mass ratio] 18 {ratio} Normal 0 - 30 {ratio} [facility], [facility].; [facility], [facility]. No Panel Informationon 04-28 AGE 73 {years} Normal [facility]. CMP with eGFR Normal [facility]. ANKLE COMPLETE RTon 12-06-19 23 ANKLE COMPLETE RT [address] [address] Patient: LILY GUILLERMO Phone#: : 1950 Age: 72 Gender: F Pt. Type: Out Account: [id number] Location: Ordering: Exam Date: 12/05/2022/10:38 Family Phys: Charge Code: [id number] Physician: Pershing Order #: [id number] Dose#: PROCEDURE: X-RAY ANKLE COMPLETE RT MIN 3 VIEWS COMPARISON: [facility], XR, ANKLE COMPLETE RT, 10/28/2022, 15:50. INDICATIONS: Injury FINDINGS: BONES: Normal. No significant arthropathy or acute abnormality. SOFT TISSUES: Subcutaneous edema is present. EFFUSION: None visible. OTHER: Negative. CONCLUSION: 1. There is no evidence of acute bone abnormality. There has been no change since previous exam. Dictated by: Keya Contreras MD on 12/05/2022 at 11:48 Approved by: Keya Contreras MD on 12/05/2022 at 11:49 Normal [facility] CV VENOUS LEG RTon 3 CV VENOUS LEG RT [address] [address] Patient: LILY GUILLERMO Phone#: : 1950 Age: 72 Gender: F Pt. Type: Out Account: [id number] Location: Ordering: [facility] Exam Date: 12/05/2022/10:00 Family Phys: Charge Code: [id number] Physician: Pershing Order #: [id number] Dose#: PROCEDURE: VENOUS DOPPLER RT LEG COMPARISON: None. INDICATIONS: Pain and swelling TECHNIQUE: Color duplex Doppler ultrasound evaluation analysis was performed in the usual manner. PHYSICIAN OFFICE ASSISTANT: SADE RISK FACTORS FOR VENOUS DISEASE: Other Pain and swelling EXAMINATION: RIGHT +Present -Reduced o Absent LEFT SPONT PHASIC AUG REFLUX COMP SPONT PHASIC AUG REFLUX COMP + + + o + CFV + + + o + + SFJ + + + o + FV (prox) + FV (mid) + FV (dist) + + + o + POP V + + + o + T/P TRUNK + + + o + PTV + + + o + PERONEAL V + GSV GASTROC SOLEAL V PHYSICIAN OFFICE ASSISTANT'S NOTES: FINDINGS: THROMBI: None visible. Continued Report - Page 2 of 2 Patient: LILY GUILLERMO Phone#: : 1950 Age: 72 Gender: F Pt. Type: Out Account: [id number] Location: Ordering: [facility] Exam Date: 12/05/2022/10:00 Family Phys: Charge Code: [id number] Physician: Pershing Order #: [id number] Dose#: COMPRESSIBILITY: Normal. OTHER: Negative. CONCLUSION: 1. There is no evidence of superficial or deep vein thrombus. Dictated by: Keya Contreras MD on 12/05/2022 at 12:11 Approved by: Keya Contreras MD on 12/05/2022 at 12:19 Normal [facility] ANKLE COMPLETE RTon 10-29-19 23 ANKLE COMPLETE RT [place] [address] Patient: LILY GUILLERMO Phone#: : 1950 Age: 72 Gender: F Pt. Type: Out Account: [id number] Location: Ordering: [facility] Exam Date: 10/28/2022/15:50 Family Phys: ZHOU FERNANDES Charge Code: [id number] Physician: Pershing Order #: [id number] Dose#: PROCEDURE: X-RAY ANKLE COMPLETE RT MIN 3 VIEWS COMPARISON: None. INDICATIONS: Ankle pain. FINDINGS: BONES: Normal. No significant arthropathy or acute abnormality. SOFT TISSUES: Edema of the lower leg is present. EFFUSION: None visible. OTHER: Negative. CONCLUSION: 1. There is no evidence of acute bone abnormality. Dictated by: Keya Contreras MD on 10/28/2022 at 15:57 Approved by: Keya Contreras MD on 10/28/2022 at 15:58 Normal [facility] FOOT COMPLETE RTon 3 FOOT COMPLETE RT [place] [address] Patient: LILY GUILLERMO Phone#: : 1950 Age: 72 Gender: F Pt. Type: Out Account: [id number] [facility] Exam Date: 10/28/2022/16:00 Family Phys: ZHOU BOYD Charge Code: [id number] Physician: Pershing Order #: [id number] Dose#: PROCEDURE: X-RAY FOOT RT COMPLETE MIN 3 VIEWS COMPARISON: None. INDICATIONS: Foot pain. FINDINGS: BONES: Normal. No significant arthropathy or acute abnormality. SOFT TISSUES: Negative. No visible soft tissue swelling. EFFUSION: None visible. OTHER: Negative. CONCLUSION: No acute disease. Dictated by: Keya Contreras MD on 10/28/2022 at 15:58 Approved by: Keya Contreras MD on 10/28/2022 at 16:00 Normal [facility] Laboratory - Chemistry and C hemistry - challengeon 04-20-2022 Bilirubin Ql (U) Negative Normal [facility] Ketones Ql (U) Negative Normal [facility], [facility]. pH (U) 6.0 [pH] Normal [facility].; [facility] Specific gravity (U) [Rel density] 1.020 Normal [facility].; [facility] Laboratory - Hematology and Cell countson 04-20-2022 Hemoglobin Ql (U) Negative Normal [facility].; [facility], [facility]. Laboratory - Specimen inform ationon 04-20-2022 Appearance (U) CLEAR Normal [facility].; [facility], [facility]. Color (U) YELLOW Normal [facility], [facility]. Laboratory - Urinalysison Glucose Test strip (U) [Mass/Vol] Negative Normal [facility].; [facility], [facility]. Leukocyte esterase Test strip Ql (U) TRACE Abnormal [facility].; [facility], [facility]. Nitrite Ql (U) Negative Normal [facility].; [facility], [facility]. Protein Ql (U) Negative Normal [facility].; [facility], [facility]. No Panel Informationon 04-20 UA - ODOR Negative Normal [facility].; [facility], [facility]. UA - UROBILIGEN 3.5 Normal [facility].; [facility], [facility]. Laboratory - Chemistry and C hemistry - challengeon 10-20-2021 Albumin [Mass/Vol] 4.2 g/dL Normal 3.2 - 4.8 g/dL [facility].; [facility], [facility]. Albumin BCP dye [Mass/Vol] 4.2 g/dL Normal 3.2 - 4.8 g/dL [facility].; [facility], [facility]. Albumin/Globulin [Mass ratio] 1.6 {ratio} Normal 0.9 - 1.6 {ratio} [facility].; [facility], [facility]. ALP [Catalytic activity/Vol] 74 U/L Normal 38 - 126 U/L [facility].; [facility] ALT [Catalytic activity/Vol] 20 U/L Normal 10 - 49 U/L [facility].; [facility], [facility]. ALT No additional P-5'-P [Catalytic activity/Vol] 20 U/L Normal 10 - 49 U/L [facility] ALT With P-5'-P [Catalytic activity/Vol] 20 U/L Normal 10 - 49 U/L [facility].; [facility] AST [Catalytic activity/Vol] 20 U/L Normal 8 - 34 U/L [facility].; [facility] AST With P-5'-P [Catalytic activity/Vol] 20 U/L Normal 8 - 34 U/L [facility]; [facility] Bilirubin [Mass/Vol] 0.50 mg/dL Normal 0.20 - 1.20 mg/dL [facility]; [facility] Calcium [Mass/Vol] 9.7 mg/dL Normal 8.7 - 10. 4 mg/dL [facility]; [facility] Chloride [Moles/Vol] 109 mmol/L Normal 98 - 11 0 meq/L [facility]; [facility] Cholesterol [Mass/Vol] 219 mg/dL Abnormal 50 - 199 mg/dL [facility]; [facility]. Cholesterol in HDL [Mass/Vol] 44 mg/dL Normal 40 - 59 mg/dL [facility]; [facility]. Cholesterol in LDL [Mass/Vol] 132 mg/dL Abnormal 0 - 129 mg/dL [facility]; [facility] CO2 [Moles/Vol] 24 mmol/L Normal 22 - 32 meq/L [facility]; [facility] Creatinine [Mass/Vol] 0.78 mg/dL Normal 0.50 - 1.20 mg/dL [facility]; [facility], [facility] GFR/1.73 sq M.predicted among blacks MDRD (S/P/Bld) [Vol rate/Area] mL/min/{1.73_m2} Normal [facility].; [facility], [facility]. Work Phone: GFR/1.73 sq M.predicted among non-blacks MDRD (S/P/Bld) [Vol rate/Area] mL/min/{1.73_m2} Normal [facility], [facility].; [facility], [facility]. Work Phone: Globulin (S) [Mass/Vol] 2.6 g/dL Normal 1.5 - 3.8 g/dL [facility].; [facility], [facility]. Glucose [Mass/Vol] 86 mg/dL Normal 82 - 115 mg/dL [facility].; [facility], [facility]. Iron [Mass/Vol] 81 ug/dL Normal 50 - 170 ug/dL [facility].; [facility], [facility]. Iron binding capacity [Mass/Vol] 272 ug/dL Normal 250 - 500 ug/dL [facility].; [facility], [facility]. Iron saturation [Mass fraction] 30 % Normal [facility].; [facility], [facility]. Magnesium [Mass/Vol] 0.50 mg/dL Normal 0.20 - 1.20 mg/dL [facility].; [facility], [facility]. Potassium [Moles/Vol] 3.9 mmol/L Normal 3.5 - 5.0 meq/L [facility].; [facility], [facility]. Protein [Mass/Vol] 6.8 g/dL Normal 5.7 - 8.2 g/dL [facility].; [facility], [facility]. Sodium [Moles/Vol] 143 mmol/L Normal 136 - 145 meq/L [facility], [facility].; [facility], [facility]. Triglyceride [Mass/Vol] 217 mg/dL Abnormal 3 - 149 mg/dL [facility].; [facility], [facility]. TSH Qn 4.726 m[IU]/L Normal 0.550 - 4.780 m[iU]/mL [facility]; [facility] Urea nitrogen [Mass/Vol] 18.0 mg/dL Normal 8.0 - 22.0 mg/dL [facility]; [facility] Urea nitrogen/Creatinine [Mass ratio] 23.1 {ratio} Abnormal 10.0 - 22.0 {ratio} [facility]; [facility] Laboratory - Hematology and Cell countson 10-20-2021 Basophils (Bld) [#/Vol] 0.0 {10^3/mcL} Normal 0. 0 - 0.3 {10^3/mcL} [facility]; [facility], [facility] Work Phone: Basophils/100 WBC (Bld) 0.6 % Normal 0.0 - 2.5 % [facility]; [facility] Work Phone: Eosinophils (Bld) [#/Vol] 0.2 {10^3/mcL} Normal 0.0 - 0.7 {10^3/mcL} [facility]; [facility], [facility] Work Phone: Eosinophils/100 WBC (Bld) 3.3 % Normal 0.0 - 6.0 % [facility]; [facility] Work Phone: Erythrocyte distribution width (RBC) [Ratio] 14.3 % Normal 11.5 - 15.5 % [facility]; [facility] Hematocrit (Bld) [Volume fraction] 40.3 % Normal 34.0 - 46.0 % [facility]; [facility], [facility] Hemoglobin (Bld) [Mass/Vol] 13.1 g/dL Normal 12.0 - 16.0 g/dL [facility]; [facility], [facility]. Lymphocytes (Bld) [#/Vol] 1.5 {10^3/mcL} Normal 0.9 - 4.3 {10^3/mcL} [facility].; [facility], [facility]. Work Phone: Lymphocytes/100 WBC (Bld) 25.5 % Normal 20.0 - 40.0 % [facility].; [facility]. Work Phone: MCH (RBC) [Entitic mass] 30.7 pg Normal 27.0 - 33.0 pg [facility].; [facility], [facility]. MCHC (RBC) [Mass/Vol] 32.6 g/dL Normal 32.0 - 36.0 g/dL [facility].; [facility], [facility]. MCV (RBC) [Entitic vol] 94.1 fL Normal 80.0 - 99.0 fL [facility].; [facility]. Monocyte distribution width Auto (Bld) [Entitic vol] Not Performed-Not Performed Normal 0.00 - 20.00 [facility]; [facility], [facility]. Work Phone: Monocytes (Bld) [#/Vol] 0.4 {10^3/mcL} Normal 0. 1 - 1.4 {10^3/mcL} [facility].; [facility], [facility]. Work Phone: Monocytes/100 WBC (Bld) 6.6 % Normal 2.0 - 13.0 % [facility].; [facility], [facility]. Work Phone: Neutrophils (Bld) [#/Vol] 3.8 {10^3/mcL} Normal 2.3 - 8.1 {10^3/mcL} [facility].; [facility], [facility]. Work Phone: Neutrophils/100 WBC (Bld) 64.0 % Normal 50.0 - 75.0 % [employer]. Work Phone: Platelet mean volume (Bld) [Entitic vol] 11.8 fL Abnormal 6.6 - 10.5 fL [facility] [employer], [employer]. Platelets (Bld) [#/Vol] 156 {10^3/mcL} Normal 15 0 - 450 {10^3/mcL} [facility] [employer].; [employer] [facility] [employer] RBC (Bld) [#/Vol] 4.28 {10^6/mcL} Normal 4.10 - 5.30 {10^6/mcL} [employer], [employer].; [employer], [employer]. WBC (Bld) [#/Vol] 5.9 {10^3/mcL} Normal 4.5 - 10 .8 {10^3/mcL} [employer], [employer]. No Panel Informationon 10-20 Basophil, Absolute 0.0 {10^3/mcL} Normal 0.0 - 0 .3 {10^3/mcL} [employer], [employer]. Work Phone: BUN/Creatinine Ratio 23.1 {ratio} Abnormal 10.0 - 22.0 {ratio} [employer].; [employer] Electrolyte Balance 10.0 meq/L Normal 4.0 - 15 .0 meq/L [facility] [employer].; [employer], [employer]. Eosinophil, Absolute 0.2 {10^3/mcL} Normal 0.0 - 0.7 {10^3/mcL} [employer], [employer]. Work Phone: Lymphocyte, Absolute 1.5 {10^3/mcL} Normal 0.9 - 4.3 {10^3/mcL} [employer]. Work Phone: Monocyte, Absolute 0.4 {10^3/mcL} Normal 0.1 - 1 .4 {10^3/mcL} [facility]. Work Phone: Neutrophil, Absolute 3.8 {10^3/mcL} Normal 2.3 - 8.1 {10^3/mcL} [facility].; [facility]. Work Phone: IGAon 05-20-2021 IgA [Mass/Vol] 227 mg/dL Normal 64-422 [facility] Comment on above: Performed By: #### L 800.0900, L800.0930, [id number], [id number] #### [place] [address] IGEon 05-20-2021 IGE 40 IU/mL Normal 6-495 [facility] Comment on above: Result Comment: Perf ormed at: [facility] [address] [id number] Speaker Mounter: Tammy Thomason MD, Phone: [phone] Performed By: #### L 800.0900, [id number], [id number], [id number] #### [place] [address] IGGon 05-20-2021 IgG [Mass/Vol] 1010 mg/dL Normal 586-1602 [facility] Comment on above: Performed By: #### L 800.0900, [id number], [id number], [id number] #### [place] [address] IGMon 05-20-2021 IgM [Mass/Vol] 124 mg/dL Normal 26-217 [facility] Comment on above: Result Comment: Perf ormed at: [facility] [address] [id number] Speaker Mounter: Timothy Montoya PhD, Phone: [phone] Performed By: #### L 800.0900, [id number], [id number], [id number] #### [place] [address] OV 05-13-2021 CNOV Office Visit (PULMUP ) LILY GUILLERMO ([id number]) 1950 F BLD Date Time Provider Department 05/13/21 10:30 AM FLOYD NICOLAS PULMUP During your visit today, we recorded the following information about you: Pulse Blood pressure Weight Height 79/minute 156/85 84.4 kg 1.524 m Floyd Nicolas DO 05/13/2021 11:07 AM Signed [facility] Department of Pulmonary AND Sleep Medicine Floyd Nicolas DO Pulmonary Consult Note - Non Smoker SERVICE DATE: 04/28/2021 SERVICE TIME: 11:39 AM REASON FOR CONSULT: Abnormal CT, surgical clearance. HISTORY OF PRESENT ILLNESS: Lily Guillermo is a 71 year old female, with a history of abnormal CT, surgical clearance. She is going to be having hernia repair right side groin area and cholecystectomy with Dr Essie Oakes. Surgery is not scheduled at this time. Did have EKG, blood work, chest xray which was abnormal so CT scan of the chest was done. She states denies any cough and shortness of breath. Ct scan of the chest images and results were viewed and discussed with patient and . She is legally blind. She has never smoked. Denies history of asthma but states she does have a history of pneumonia. No hemoptysis, chest pain, pleurisy, wasting syndrome or weight loss IBrandie CMA , transcribing for Floyd Nicolas DO. HISTORY PAST MEDICAL HISTORY Diagnosis Date - Adenomatous polyp of ascending colon - Anxiety - Brain tumor (HCC) - Chronic insomnia - Chronic insomnia - Esotropia - GERD (gastroesophageal reflux disease) - History of breast cancer - Hx of hypokalemia - Hx of seizure disorder - Irritable bowel syndrome with constipation - Legal blindness - Right hip pain - Ventral hernia without obstruction or gangrene PAST SURGICAL HISTORY Procedure Laterality Date - INGUINAL HERNIA REPAIR HX 03/03/2017 Social History Tobacco Use - Smoking status: Never Smoker - Smokeless tobacco: Never Used Substance Use Topics - Alcohol use: Not Currently - Drug use: Not Currently ALLERGIES: ALLERGIES No Known Allergies MEDICATIONS: Current Outpatient Medications Medication Sig - zolpidem (AMBIEN) 5 mg tablet TAKE ONE TABLET BY MOUTH EVERY NIGHT AT BEDTIME NEEDED - diazePAM (VALIUM) 5 mg tablet Take 5 mg by mouth at bedtime as needed. - multivit with calcium,iron,min (WOMEN'S MULTIPLE VITAMINS ORAL) Take by mouth once daily. - topiramate (TOPAMAX) 50 mg tablet Take 50 mg by mouth. One in am 2 in pm - ascorbic acid, vitamin C, (VITAMIN C) 250 mg tablet Take 250 mg by mouth once daily. - vit C/vit E ac/lut/copper/zinc (PRESERVISION LUTEIN ORAL) Take by mouth once daily. - potassium gluconate 550 mg (90 mg) tab Take by mouth once daily. No current facility-administered medications for this visit. IMMUNIZATIONS: Immunization History Administered Date(s) Administered Pneumococcal-13 Vac Conjugate 11/21/2006 01/03/2014 10/26/2017 TD Adult 10/05/2006 History reviewed. No pertinent family history. I have personally reviewed the patients past medical history including social, family, surgical, diagnostics, and medications./WS REVIEW OF SYSTEMS Review of Systems Constitutional: Negative. HENT: Negative. Eyes: Positive for visual disturbance. Respiratory: Negative. Cardiovascular: Positive for leg swelling (LYMPHEDEMA). Gastrointestinal: Negative. Endocrine: Negative. Genitourinary: Negative. Musculoskeletal: Negative. Skin: Negative. Allergic/Immunologic: Negative. Neurological: Negative. Hematological: Negative. Psychiatric/Behavioral : Negative. Vital Signs: BP 156/85 Pulse 79 Ht 5' 0 (1.52m) Wt 186 lb (84.4kg) SpO2 99[ra]% BMI 36.33 kg/(m2). PHYSICAL EXAM: Vitals: BP 156/85 Pulse 79 Ht 5' 0 (1.52m) Wt 186 lb (84.4kg) SpO2 99[ra]% BMI 36.33 kg/(m2). Const: Appears appropriate for age, well-developed, well-hydrated, well-nourished and pleasant. No signs of acute distress present and no signs of respiratory distress present. Breasts are not examined. External genitalia and rectal exams were not performed. Head/Face: Normal on inspection. Symmetric facies. Eyes: Pupils equal round and reactive to light and accommodation. Visual acuity grossly intact. MEDICAL DEVIATION OF THE LEFT EYE ENMT: External ears wnl. Tympanic membranes translucent, with good landmarks bilaterally. Nasal mucosa is pink and moist. Septum is in the midline. Inferior turbinates are normal without hypertrophy. No dental decay. Oropharynx: Appears normal. Tongue appears normal. Mallampati Score: Class IV: No oral lesions, or candidiasis. ASYMMETRIC RIGHT UVULA. ELONGATED SOFT PALATE Neck: Supple and symmetric. Palpation reveals no lymphadenopathy. Trachea midline. Thyroid is normal size. No JVD. Carotids: 2+upstroke and equal bilaterally, without bruits. Resp: AP diame (more content not included)... Normal [facility] Laboratory - Chemistry and C hemistry - challengeon 03-05-2021 Creatinine [Mass/Vol] 0.91 mg/dL Normal 0.55 - 1.02 mg/dL [facility]; [facility]. Work Phone: Laboratory - Chemistry and C hemistry - challengeon 05-07-2020 Albumin [Mass/Vol] 3.9 g/dL Normal 3.2 - 4.8 g/dL [facility]; [facility], [facility]. Albumin BCP dye [Mass/Vol] 3.9 g/dL Normal 3.2 - 4.8 g/dL [facility].; [facility]. Albumin/Globulin [Mass ratio] 1.4 {ratio} Normal 0.9 - 1.6 {ratio} [facility]; [facility]. ALP [Catalytic activity/Vol] 76 U/L Normal 38 - 126 U/L [facility]; [facility]. ALT [Catalytic activity/Vol] 17 U/L Normal 10 - 49 U/L [facility].; [facility] ALT No additional P-5'-P [Catalytic activity/Vol] 17 U/L Normal 10 - 49 U/L [facility] ALT With P-5'-P [Catalytic activity/Vol] 17 U/L Normal 10 - 49 U/L [facility].; [facility]. AST [Catalytic activity/Vol] 16 U/L Normal 8 - 34 U/L [facility].; [facility] AST With P-5'-P [Catalytic activity/Vol] 16 U/L Normal 8 - 34 U/L [facility] Bilirubin [Mass/Vol] 0.60 mg/dL Normal 0.20 - 1.20 mg/dL [facility]; [facility] Calcium [Mass/Vol] 10.0 mg/dL Normal 8.7 - 10. 4 mg/dL [facility]; [facility] Chloride [Moles/Vol] 110 mmol/L Normal 98 - 11 0 meq/L [facility]; [facility] Cholesterol [Mass/Vol] 220 mg/dL Abnormal 50 - 199 mg/dL [facility]; [facility]. Cholesterol in HDL [Mass/Vol] 47 mg/dL Normal 40 - 59 mg/dL [facility]; [facility] Cholesterol in LDL [Mass/Vol] 136 mg/dL Abnormal 0 - 129 mg/dL [facility].; [facility]. CO2 [Moles/Vol] 27 mmol/L Normal 22 - 32 meq/L [facility]; [facility] Creatinine [Mass/Vol] 0.68 mg/dL Normal 0.50 - 1.20 mg/dL [facility]; [facility] GFR/1.73 sq M.predicted among blacks MDRD (S/P/Bld) [Vol rate/Area] mL/min/{1.73_m2} Normal [facility].; [facility], [facility] Work Phone: GFR/1.73 sq M.predicted among non-blacks MDRD (S/P/Bld) [Vol rate/Area] mL/min/{1.73_m2} Normal [facility].; [facility], [facility] Work Phone: Globulin (S) [Mass/Vol] 2.7 g/dL Normal 1.5 - 3.8 g/dL [facility]; [facility], [facility] Glucose [Mass/Vol] 100 mg/dL Normal 82 - 115 mg/dL [facility]; [facility], [facility] Iron [Mass/Vol] 88 ug/dL Normal 50 - 170 ug/dL [facility]; [facility], [facility] Magnesium [Mass/Vol] 0.60 mg/dL Normal 0.20 - 1.20 mg/dL [facility]; [facility], [facility] Potassium [Moles/Vol] 3.7 mmol/L Normal 3.5 - 5.0 meq/L [facility]; [facility], [facility] Protein [Mass/Vol] 6.6 g/dL Normal 5.7 - 8.2 g/dL [facility]; [facility], [facility] Sodium [Moles/Vol] 144 mmol/L Normal 136 - 145 meq/L [facility], [facility]. Triglyceride [Mass/Vol] 187 mg/dL Abnormal 3 - 149 mg/dL [facility]; [facility], [facility] TSH Qn 4.224 m[IU]/L Normal 0.550 - 4.780 m[iU]/mL [facility]; [facility], [facility] Urea nitrogen [Mass/Vol] 17.0 mg/dL Normal 8.0 - 22.0 mg/dL [facility]; [facility] Urea nitrogen/Creatinine [Mass ratio] 25.0 {ratio} Abnormal 10.0 - 22.0 {ratio} [facility] Laboratory - Hematology and Cell countson 05-07-2020 Basophils (Bld) [#/Vol] 0.00 {10^3/mcL} Normal 0 .00 - 0.27 {10^3/mcL} [facility].; [facility] Work Phone: Basophils/100 WBC (Bld) 0.6 % Normal 0.0 - 2.5 % [facility].; [facility] Work Phone: Eosinophils (Bld) [#/Vol] 0.20 {10^3/mcL} Normal 0.00 - 0.65 {10^3/mcL} [facility].; [facility] Work Phone: Eosinophils/100 WBC (Bld) 2.9 % Normal 0.0 - 6.0 % [facility] [employer] [facility].; [facility] Work Phone: Erythrocyte distribution width (RBC) [Ratio] 13.9 % Normal 11.5 - 15.5 % [facility] [employer] [facility] [place] [employer].; [facility] Hematocrit (Bld) [Volume fraction] 41.2 % Normal 34.0 - 46.0 % [facility] [employer] [facility] [place].; [facility] [employer] [facility] Hemoglobin (Bld) [Mass/Vol] 13.3 g/dL Normal 12.0 - 16.0 g/dL [facility] [employer] [facility] [place] [employer].; [facility] Lymphocytes (Bld) [#/Vol] 1.50 {10^3/mcL} Normal 0.90 - 4.32 {10^3/mcL} [facility] [employer] [facility] [place].; [facility] Work Phone: Lymphocytes/100 WBC (Bld) 24.9 % Normal 20.0 - 40.0 % [facility] [employer] [facility] [employer] [facility] [place], [employer]. Work Phone: MCH (RBC) [Entitic mass] 31.0 pg Normal 27.0 - 33.0 pg [facility] [employer] [facility] [place].; [facility] [employer] [facility] [place], [employer]. MCHC (RBC) [Mass/Vol] 32.3 g/dL Normal 32.0 - 36.0 g/dL [facility] [employer] [facility] [place] [employer].; [facility] [employer] [facility] [place], [employer]. MCV (RBC) [Entitic vol] 95.9 fL Normal 80.0 - 99.0 fL [facility] [employer] [facility] [employer] [facility] [place], [employer]. Monocytes (Bld) [#/Vol] 0.30 {10^3/mcL} Normal 0 .09 - 1.40 {10^3/mcL} [facility] [place] [facility].; [employer] [facility] [employer], [employer]. Work Phone: Monocytes/100 WBC (Bld) 5.7 % Normal 2.0 - 13.0 % [facility] [employer] [facility] [employer], [employer]. Work Phone: Neutrophils (Bld) [#/Vol] 3.80 {10^3/mcL} Normal 2.25 - 8.10 {10^3/mcL} [facility] [employer].; [facility] [employer], [employer]. Work Phone: Neutrophils/100 WBC (Bld) 65.9 % Normal 50.0 - 75.0 % [facility] [employer], [employer]. Work Phone: Platelet mean volume (Bld) [Entitic vol] 10.7 fL Abnormal 6.6 - 10.5 fL [facility].; [facility] [employer] [facility] [place], [employer]. Platelets (Bld) [#/Vol] 180 {10^3/mcL} Normal 15 0 - 450 {10^3/mcL} [facility], [facility]. RBC (Bld) [#/Vol] 4.29 {10^6/mcL} Normal 4.10 - 5.30 {10^6/mcL} [facility].; [facility], [facility] WBC (Bld) [#/Vol] 5.80 {10^3/mcL} Normal 4.50 - 10.80 {10^3/mcL} [facility].; [facility] No Panel Informationon 05-07 Basophil, Absolute 0.00 {10^3/mcL} Normal 0.00 - 0.27 {10^3/mcL} [facility].; [facility]. Work Phone: BUN/Creatinine Ratio 25.0 {ratio} Abnormal 10.0 - 22.0 {ratio} [facility].; [facility] Electrolyte Balance 7.0 meq/L Normal 4.0 - 15 .0 meq/L [facility].; [facility] [employer] [facility] [place] [employer]. Eosinophil, Absolute 0.20 {10^3/mcL} Normal 0.00 - 0.65 {10^3/mcL} [facility].; [facility], [employer]. Work Phone: Lymphocyte, Absolute 1.50 {10^3/mcL} Normal 0.90 - 4.32 {10^3/mcL} [facility] [employer] [facility] [place] [employer].; [facility], [employer]. Work Phone: Monocyte, Absolute 0.30 {10^3/mcL} Normal 0.09 - 1.40 {10^3/mcL} [facility] [employer] [facility] [place] [employer].; [facility], [employer]. Work Phone: Neutrophil, Absolute 3.80 {10^3/mcL} Normal 2.25 - 8.10 {10^3/mcL} [facility] [employer] [facility] [place] [employer].; [facility] [employer] [facility] [place], [employer]. Work Phone: Laboratory - Chemistry and C hemistry - challengeon 10-31-2019 Albumin [Mass/Vol] 3.8 g/dL Normal 3.2 - 4.8 g/dL [facility]; [facility] Albumin BCP dye [Mass/Vol] 3.8 g/dL Normal 3.2 - 4.8 g/dL [facility], [facility] Albumin/Globulin [Mass ratio] 1.2 {ratio} Normal 0.9 - 1.6 {ratio} [facility]; [facility] ALP [Catalytic activity/Vol] 92 U/L Normal 38 - 126 U/L [facility]; [facility], [facility]. ALT [Catalytic activity/Vol] 25 U/L Normal 10 - 49 U/L [facility]; [facility], [facility] ALT No additional P-5'-P [Catalytic activity/Vol] 25 U/L Normal 10 - 49 U/L [facility]; [facility], [facility]. ALT With P-5'-P [Catalytic activity/Vol] 25 U/L Normal 10 - 49 U/L [facility], [facility]. AST [Catalytic activity/Vol] 16 U/L Normal 8 - 34 U/L [facility]; [facility], [facility]. AST With P-5'-P [Catalytic activity/Vol] 16 U/L Normal 8 - 34 U/L [facility].; [facility], [facility]. Bilirubin [Mass/Vol] 0.3 mg/dL Normal 0.2 - 1 .2 mg/dL [facility]; [facility], [facility] Calcium [Mass/Vol] 9.9 mg/dL Normal 8.4 - 10. 1 mg/dL [facility]; [facility], [facility] Chloride [Moles/Vol] 109 mmol/L Normal 98 - 11 0 meq/L [facility]; [facility], [facility]. CO2 [Moles/Vol] 27 mmol/L Normal 22 - 32 meq/L [facility].; [facility], [facility]. Creatinine [Mass/Vol] 0.63 mg/dL Normal 0.50 - 1.20 mg/dL [facility].; [facility], [facility]. GFR/1.73 sq M.predicted among blacks MDRD (S/P/Bld) [Vol rate/Area] mL/min/{1.73_m2} Normal [facility].; [facility], [facility]. Work Phone: GFR/1.73 sq M.predicted among non-blacks MDRD (S/P/Bld) [Vol rate/Area] mL/min/{1.73_m2} Normal [facility].; [facility], [facility]. Work Phone: Globulin (S) [Mass/Vol] 3.1 g/dL Normal 1.5 - 3.8 g/dL [facility].; [facility], [facility]. Glucose [Mass/Vol] 79 mg/dL Abnormal 82 - 115 mg/dL [facility].; [facility], [facility]. Magnesium [Mass/Vol] 0.3 mg/dL Normal 0.2 - 1 .2 mg/dL [facility].; [facility], [facility]. Potassium [Moles/Vol] 4.3 mmol/L Normal 3.5 - 5.0 meq/L [facility].; [facility], [facility] Protein [Mass/Vol] 6.9 g/dL Normal 6.0 - 8.5 g/dL [facility].; [facility], [facility]. Sodium [Moles/Vol] 141 mmol/L Normal 136 - 145 meq/L [facility].; [facility], [facility] Urea nitrogen [Mass/Vol] 12.0 mg/dL Normal 8.0 - 22.0 mg/dL [facility].; [facility], [facility]. Urea nitrogen/Creatinine [Mass ratio] 19.0 {ratio} Normal 10.0 - 22.0 {ratio} [facility], [facility].; [facility], [facility]. No Panel Informationon 10-30 BUN/Creatinine Ratio 19.0 {ratio} Normal 10.0 - 22.0 {ratio} [facility], [facility].; [facility], [facility]. Electrolyte Balance 5.0 meq/L Normal 4.0 - 15 .0 meq/L [facility].; [facility], [facility]. Topiramate Lvl 5.9 {UG/ML} Normal 5.0 - 20.0 {UG/ML} [facility], [facility].; [facility], [facility]. Laboratory - Chemistry and C hemistry - challengeon 10-25-2018 Albumin [Mass/Vol] 4.0 g/dL Normal 3.2 - 4.8 g/dL [facility].; [facility], [facility]. Albumin BCP dye [Mass/Vol] 4.0 g/dL Normal 3.2 - 4.8 g/dL [facility].; [facility], [facility]. Albumin/Globulin [Mass ratio] 1.4 {ratio} Normal 0.9 - 1.6 {ratio} [facility], [facility].; [facility], [facility]. ALP [Catalytic activity/Vol] 77 U/L Normal 38 - 126 U/L [facility].; [facility], [employer] ALT [Catalytic activity/Vol] 23 U/L Normal 10 - 49 U/L [facility].; [facility], [facility]. ALT No additional P-5'-P [Catalytic activity/Vol] 23 U/L Normal 10 - 49 U/L [facility], [facility].; [facility], [employer] ALT With P-5'-P [Catalytic activity/Vol] 23 U/L Normal 10 - 49 U/L [facility].; [facility], [employer] AST [Catalytic activity/Vol] 19 U/L Normal 8 - 34 U/L [facility].; [facility]. AST With P-5'-P [Catalytic activity/Vol] 19 U/L Normal 8 - 34 U/L [facility].; [facility]. Bilirubin [Mass/Vol] 0.5 mg/dL Normal 0.2 - 1 .2 mg/dL [facility].; [facility] Calcium [Mass/Vol] 9.4 mg/dL Normal 8.4 - 10. 1 mg/dL [facility].; [facility]. Chloride [Moles/Vol] 109 mmol/L Normal 98 - 11 0 meq/L [facility].; [facility] CO2 [Moles/Vol] 26 mmol/L Normal 22 - 32 meq/L [facility].; [facility] Creatinine [Mass/Vol] 0.70 mg/dL Normal 0.50 - 1.20 mg/dL [facility].; [facility], [facility]. GFR/1.73 sq M.predicted among blacks MDRD (S/P/Bld) [Vol rate/Area] mL/min/{1.73_m2} Normal [facility].; [facility], [facility] Work Phone: GFR/1.73 sq M.predicted among non-blacks MDRD (S/P/Bld) [Vol rate/Area] mL/min/{1.73_m2} Normal [facility].; [facility], [facility]. Work Phone: Globulin (S) [Mass/Vol] 2.9 g/dL Normal 1.5 - 3.8 g/dL [facility].; [facility], [facility]. Glucose [Mass/Vol] 85 mg/dL Normal 82 - 115 mg/dL [facility].; [facility] Magnesium [Mass/Vol] 0.5 mg/dL Normal 0.2 - 1 .2 mg/dL [facility].; [facility] Potassium [Moles/Vol] 3.9 mmol/L Normal 3.5 - 5.0 meq/L [facility].; [facility] Protein [Mass/Vol] 6.9 g/dL Normal 6.0 - 8.5 g/dL [facility].; [facility] Sodium [Moles/Vol] 143 mmol/L Normal 136 - 145 meq/L [facility].; [facility] Urea nitrogen [Mass/Vol] 14.0 mg/dL Normal 8.0 - 22.0 mg/dL [facility].; [facility], [facility] Urea nitrogen/Creatinine [Mass ratio] 20.0 {ratio} Normal 10.0 - 22.0 {ratio} [facility].; [facility], [facility] No Panel Informationon 10-25 BUN/Creatinine Ratio 20.0 {ratio} Normal 10.0 - 22.0 {ratio} [facility].; [facility], [facility] Electrolyte Balance 8.0 meq/L Normal 4.0 - 15 .0 meq/L [facility].; [facility], [facility] Topiramate Lvl 5.4 {UG/ML} Normal 5.0 - 20.0 {UG/ML} [facility].; [facility], [facility]. Laboratory - Chemistry and C hemistry - challengeon 10-26-2017 Albumin [Mass/Vol] 4.1 g/dL Normal 3.2 - 4.8 g/dL [facility].; [facility], [facility]. Albumin BCP dye [Mass/Vol] 4.1 g/dL Normal 3.2 - 4.8 g/dL [facility].; [facility], [facility] Albumin/Globulin [Mass ratio] 1.5 {ratio} Normal 0.9 - 1.6 {ratio} [facility].; [facility] ALP [Catalytic activity/Vol] 70 U/L Normal 38 - 126 U/L [facility]; [facility], [facility]. ALT [Catalytic activity/Vol] 29 U/L Normal 10 - 49 U/L [facility].; [facility] ALT No additional P-5'-P [Catalytic activity/Vol] 29 U/L Normal 10 - 49 U/L [facility]; [facility]. ALT With P-5'-P [Catalytic activity/Vol] 29 U/L Normal 10 - 49 U/L [facility]; [facility], [facility]. AST [Catalytic activity/Vol] 18 U/L Normal 8 - 34 U/L [facility]; [facility]. AST With P-5'-P [Catalytic activity/Vol] 18 U/L Normal 8 - 34 U/L [facility], [facility]. Bilirubin [Mass/Vol] 0.4 mg/dL Normal 0.2 - 1 .2 mg/dL [facility]; [facility], [facility] Calcium [Mass/Vol] 9.4 mg/dL Normal 8.4 - 10. 1 mg/dL [facility]; [facility], [facility] Chloride [Moles/Vol] 110 mmol/L Normal 98 - 11 0 meq/L [facility]; [facility], [facility]. CO2 [Moles/Vol] 27 mmol/L Normal 22 - 32 meq/L [facility], [facility] Creatinine [Mass/Vol] 0.68 mg/dL Normal 0.50 - 1.20 mg/dL [facility].; [facility], [facility] GFR/1.73 sq M.predicted among blacks MDRD (S/P/Bld) [Vol rate/Area] mL/min/{1.73_m2} Normal [facility] [employer] [facility] [employer] [facility] [place], [employer]. Work Phone: GFR/1.73 sq M.predicted among non-blacks MDRD (S/P/Bld) [Vol rate/Area] mL/min/{1.73_m2} Normal [facility].; [employer] [facility] [employer] [facility] [place], Inc[employer] Work Phone: Globulin (S) [Mass/Vol] 2.7 g/dL Normal 1.5 - 3.8 g/dL [facility].; [facility] [employer] [facility] [place], [employer]. Glucose [Mass/Vol] 83 mg/dL Normal 82 - 115 mg/dL [facility].; [facility] [employer] [facility] [place], [employer]. Magnesium [Mass/Vol] 0.4 mg/dL Normal 0.2 - 1 .2 mg/dL [facility].; [facility] [employer] [facility] [place], [employer]. Potassium [Moles/Vol] 4.2 mmol/L Normal 3.5 - 5.0 meq/L [facility].; [facility] [employer] [facility] [place], [employer]. Protein [Mass/Vol] 6.8 g/dL Normal 6.0 - 8.5 g/dL [facility].; [facility] [employer] [facility] [place], Inc[employer] Sodium [Moles/Vol] 145 mmol/L Normal 136 - 145 meq/L [facility].; [facility] [employer] [facility] [place], Inc. Urea nitrogen [Mass/Vol] 11.0 mg/dL Normal 8.0 - 22.0 mg/dL [facility].; [facility] [employer] [facility] [place], Inc[employer] Urea nitrogen/Creatinine [Mass ratio] 16.2 {ratio} Normal 10.0 - 22.0 {ratio} [facility] [employer] [facility] [place].; [facility] [employer] [facility] [place], [employer]. No Panel Informationon 10-26 BUN/Creatinine Ratio 16.2 {ratio} Normal 10.0 - 22.0 {ratio} [facility] [employer] [facility] [place].; [place] [facility] Electrolyte Balance 8.0 meq/L Normal 4.0 - 15 .0 meq/L [facility]; [facility] Topiramate Lvl 5.4 {UG/ML} Normal 5.0 - 20.0 {UG/ML} [facility]; [facility] Laboratory - Chemistry and C hemistry - challengeon 04-27-2017 Potassium [Moles/Vol] 3.9 mmol/L Normal 3.5 - 5.0 meq/L [facility]; [facility] Laboratory - Chemistry and C hemistry - challengeon 02-15-2017 Albumin [Mass/Vol] 4.1 g/dL Normal 3.4 - 4.8 g/dL [facility]; [facility], [facility] Work Phone: Albumin [Mass/Vol] 1.6 g/dL Normal 0.9 - 1.6 [facility]; [facility] Work Phone: ALT [Catalytic activity/Vol] 17 U/L Normal 8 - 35 U/L [facility]; [facility] Work Phone: Anion gap [Moles/Vol] 9 mmol/L Abnormal 10 - 2 0 mmol/L [facility]; [facility]. Work Phone: AST [Catalytic activity/Vol] 17 U/L Normal 13 - 39 U/L [facility]; [facility], [facility] Work Phone: Bilirubin [Mass/Vol] 0.7 mg/dL Normal 0.0 - 1 .5 mg/dL [facility]; [facility], [facility] Work Phone: Calcium [Mass/Vol] 9.3 mg/dL Normal 8.6 - 10. 2 mg/dL [facility]; [facility] Work Phone: Chloride [Moles/Vol] 111 mmol/L Abnormal 98 - 10 7 mmol/L [facility]; [facility] Work Phone: CO2 [Moles/Vol] 24.3 mmol/L Normal 21.0 - 31.0 mmol/L [facility]; [facility] Work Phone: Creatinine [Mass/Vol] 0.6 mg/dL Normal 0.6 - 1.2 mg/dL [facility]; [facility] Work Phone: GFR/1.73 sq M.predicted among blacks MDRD (S/P/Bld) [Vol rate/Area] mL/min/{1.73_m2} Normal 60 - 999 {ML/MINUTE} [facility]; [facility] Work Phone: GFR/1.73 sq M.predicted MDRD (S/P/Bld) [Vol rate/Area] mL/min/{1.73_m2} Normal 60 - 999 {ML/MINUTE} [facility]. Work Phone: Globulin (S) [Mass/Vol] 2.6 g/dL Normal 1.5 - 3.8 g/dL [facility]; [facility]. Work Phone: Glucose [Mass/Vol] 91 mg/dL Normal 74 - 106 mg/dL [facility]; [facility]. Work Phone: Potassium [Moles/Vol] 3.2 mmol/L Abnormal 3.5 - 5.1 mmol/L [facility]; [facility] Work Phone: Protein [Mass/Vol] 6.7 g/dL Normal 6.4 - 8.3 g/dL [facility]; [facility] Work Phone: Sodium [Moles/Vol] 141 mmol/L Normal 136 - 145 mmol/L [facility]; [facility] Work Phone: Urea nitrogen [Mass/Vol] 10 mg/dL Normal 6 - 20 mg/dL [facility]; [facility]. Work Phone: Urea nitrogen/Creatinine [Mass ratio] 17 {ratio} Normal 0 - 30 {ratio} [facility]; [facility] Work Phone: Laboratory - Hematology and Cell countson 02-15-2017 CBC panel Auto (Bld) Normal [facility]; [facility] Work Phone: Erythrocyte distribution width (RBC) [Ratio] 13.2 % Normal 12.0 - 15.6 % [facility]; [facility] Work Phone: Hematocrit (Bld) [Volume fraction] 38.8 % Normal 34.0 - 46.0 % [facility]; [facility] Work Phone: Hemoglobin (Bld) [Mass/Vol] 13.3 g/dL Normal 12.0 - 16.0 g/dL [facility]; [facility], [facility]. Work Phone: MCH (RBC) [Entitic mass] 32 pg Normal 27 - 33 pg [facility]; [facility], [facility]. Work Phone: MCHC (RBC) [Mass/Vol] 34 {X10_3} Normal 32 - 3 6 {X10_3} [facility]; [facility] CenterTok[facility] Pharm[facility]. Work Phone: MCV (RBC) [Entitic vol] 93 fL Normal 80 - 99 fL [facility] [employer] [facility] [place] [employer].; [facility] Center[facility]. Work Phone: Platelet mean volume (Bld) [Entitic vol] 10.0 fL Normal 6.6 - 10.5 fL [facility] [place] [employer].; [facility] [employer] [facility] [place] [employer]. Work Phone: Platelets (Bld) [#/Vol] 165 {x10EE3/UL} Normal 1 50 - 450 {x10EE3/UL} [facility] [employer] [facility] [place].; [facility] [employer] [facility] [place] [employer]. Work Phone: RBC (Bld) [#/Vol] 4.18 {x_10EE6/UL} Normal 4.10 - 5.30 {x_10EE6/UL} [facility] [place].; [facility] [employer] [facility] [place] [employer]. Work Phone: WBC (Bld) [#/Vol] 6.2 {x_10EE3/UL} Normal 4.5 - 10.8 {x_10EE3/UL} [facility] [employer] [facility] [place] [employer].; [facility] [employer] [facility] [place] [employer]. Work Phone: No Panel Informationon 02-15 AGE 66 {years} Normal [facility] [employer]; [facility] [employer] [facility] [place] [employer]. Work Phone: ALK PHOS 62 U/L Normal 38 - 126 U/L [facility]; [employer] [facility] [employer]. Work Phone: CMP with eGFR Normal [facility]; [facility] [employer] [facility] [place] [employer]. Work Phone: Final Surgical Pathology Report See Note Normal [facility] [employer] [facility] [employer]. Work Phone: Free Thyroxine Indexon 10-28 Free Thyroxine Index 7.18 Normal 3.60-14.00 [facility] Comment on above: Performed By: #### F TI ####[facility], [address] [place] [address] Glomerular Filtration Rate Belle vergara10-28-2016 eGFR (non-black) mL/min/{1.73_m2} Normal [facility] Comment on above: Performed By: #### G FR ####[address] [address] Result Comment: Rani farias mean GFR = 85 mL/min/1.73 sq.m. for ages 60-69 years. Chronic Kidney Disease: Less than 60 mL/min/1.73 square metersEnd Stage Renal Disease: Less than 15 mL/min/1.73 square meters Profile 10-28-2016 HDL Cholesterol 59 mg/dL Normal 40 - 59 mg/dL [facility] Comment on above: Result Comment: HDL Reference Interval: Less than 40 Low - high risk 60 or above Optimal/lowers risk ------ Performed By: #### Y 2711 ####[address] [address] LDL Cholesterol 123 mg/dL Normal 0-129 [facility] Comment on above: Result Comment: LDL is a calculated result and requires a 12-hr fast. LDL Reference Interval: Less than 100 Optimal 100-129 Near or above optimal 130-159 Borderline high risk 160-189 High risk 190 and above Very high risk ------- Performed By: #### Y 2711 ####[address] [place] [address] Triglyceride 153 mg/dL Abnormal 3 - 149 mg/dL [facility].; [facility] Comment on above: Result Comment: Trig lyceride Reference Interval: Less than 150 Normal 150-199 Borderline high risk 200-499 High risk 500 or higher Very high risk ------ Performed By: #### Y 2711 ####[place] [id number] Cholesterol 213 mg/dL Abnormal 50 - 199 mg/dL [facility].; [facility]. Comment on above: Result Comment: Chol esterol Reference Interval: Less than 200 Desirable 200-239 Borderline high risk 240 and above High risk ------ Performed By: #### Y 2711 ####[address] [address] T Uptake 1.14 ratio Normal 0.76-1.23 [facility] Comment on above: Performed By: #### Y 2711 ####[address] [address] Thyroid stimulating hormone (TSH) 2.94 mcIU/mL Normal 0.36-3.74 [facility] Comment on above: Performed By: #### Y 2711 ####[address] [address] % Saturation 34 % Normal [facility] Comment on above: Performed By: #### Y 2711 ####[address] [address] T4 6.3 mcg/dL Normal 4.8-13.9 [facility] Comment on above: Performed By: #### Y 2711 ####[facility], [address] [place] [address] TIBC 250 mcg/dL Normal 250-500 [facility] Comment on above: Performed By: #### Y 271 ####[facility], [address] [place] [address] BUN/Creatinine Ratio 16.9 mg/mg Normal 10.0 - 22.0 Eas [facility].; [facility] Comment on above: Performed By: #### Y 2711 ####[facility], [address] [place] [address] Creatinine 0.65 mg/dL Normal 0.50 - 1.20 mg/dL [facility]; [facility] Comment on above: Performed By: #### Y 2711 ####[facility], [address] [place], [place] [id number] Albumin/Globulin Ratio 1.4 {ratio} Normal 0.9 - 1.6 [facility].; [facility]. Comment on above: Performed By: #### Y 2711 ####[place] [id number] Alk. Phosphatase 67 U/L Normal 38-126 [facility] Comment on above: Performed By: #### Y 2711 ####[facility], [address] [place] [address] Bilirubin (direct) 0.4 mg/dL Normal 0.2-1.2 [facility] Comment on above: Performed By: #### Y 2711 ####[address] [address] Globulin 2.9 G/dL Normal 1.5-3.8 [facility] Comment on above: Performed By: #### Y 2711 ####[facility], [address] [place] [address] T. Protein 7.0 G/dL Normal 6.0-8.5 [facility] Comment on above: Performed By: #### Y 2711 ####[address] [address] Alanine aminotransferase (ALT) 31 U/L Normal 10 - 49 U/L [facility], [facility].; [facility], [facility]. Comment on above: Performed By: #### Y 2711 ####[address] [address] Aspartate aminotransferase (AST) 16 U/L Normal 8 - 34 U/L [facility], [facility].; [facility] Comment on above: Performed By: #### Y 2711 ####[address] [address] Iron 85 ug/dL Normal 37 - 170 ug/dL [facility], [facility].; [facility] Comment on above: Performed By: #### Y 2711 ####[address] [address] Glucose mass conc 85 mg/dL Normal 82 - 115 mg/dL [facility], [facility].; [facility], [facility]. Comment on above: Performed By: #### Y 2711 ####[address] [address] Albumin 4.1 G/dL Normal 3.2-4.8 [facility] Comment on above: Performed By: #### Y 2711 ####[address] [address] Calcium 9.6 mg/dL Normal 8.4 - 10.1 mg/dL [facility], [facility].; [facility] Comment on above: Performed By: #### Y 2711 ####[address] [address] CO2 26 mmol/L Normal 22 - 32 meq/L [facility], [facility].; [facility] Comment on above: Performed By: #### Y 2711 ####[address] [address] Electrolyte Balance 9.0 mEq/L Normal 4.0-15.0 [facility] Comment on above: Performed By: #### Y 2711 ####[address] [address] Urea nitrogen 11.0 mg/dL Normal 8.0 - 22.0 mg/dL [facility], [facility].; [facility], [facility]. Comment on above: Performed By: #### Y 2711 ####[address] [address] Chloride 108 mmol/L Normal 98 - 110 meq/L [facility], [facility].; [facility], [facility]. Comment on above: Performed By: #### Y 2711 ####[address] [address] Potassium molar conc 4.1 mmol/L Normal 3.5 - 5 .0 meq/L [facility].; [facility], [facility]. Comment on above: Performed By: #### Y 2711 ####[address] [address] Sodium 143 mmol/L Normal 136 - 145 meq/L [facility], [facility].; [facility] Comment on above: Performed By: #### Y 2711 ####[address] [address] Basophils/100 WBC Auto (Bld) 0.6 % Normal 0.0-2.5 [facility] Comment on above: Performed By: #### Y 2711 ####[address] [address] Eosinophils/100 leukocytes 2.6 % Normal 0.0-6.0 [facility] Comment on above: Performed By: #### Y 2711 ####[address] [address] Erythrocyte distribution width Auto Ratio (RBC) 13.7 % Normal 11.5-15.5 [facility] Comment on above: Performed By: #### Y 2711 ####[address] [place] [address] Erythrocytes (RBC) 4.25 10 6/mcL Normal 4.10-5.30 [facility] Comment on above: Performed By: #### Y 2711 ####[place] [id number] Hematocrit (HCT) 39.7 % Normal 34.0-46.0 [facility] Comment on above: Performed By: #### Y 2711 ####[place] [address] Hemoglobin mass conc (Bld) 13.2 G/dL Normal 12.0 - 16.0 g/dL [facility]; [facility] Comment on above: Performed By: #### Y 2711 ####[address] [address] Lymphocytes/100 leukocytes 26.7 % Normal 20.0-40.0 [facility] Comment on above: Performed By: #### Y 2711 ####[facility], [address] [place] [address] MCH 31.1 pg Normal 27.0-33.0 [facility] Comment on above: Performed By: #### Y 2711 ####[address] [address] MCHC mass conc (RBC) 33.3 G/dL Normal 32.0-36.0 [facility] Comment on above: Performed By: #### Y 2711 ####[address] [address] MCV 93.4 fL Normal 80.0-99.0 [facility] Comment on above: Performed By: #### Y 2711 ####[address] [address] Monocytes/100 leukocytes 7.2 % Normal 2.0-13.0 [facility] Comment on above: Performed By: #### Y 2711 ####[place] [id number] Neutrophils 3.30 10 3/mcL Normal 1.90-7.90 [facility] Comment on above: Performed By: #### Y 2711 ####[facility], [address] [place] [address] Neutrophils/100 WBC Auto (Bld) 62.9 % Normal 50.0-75.0 [facility] Comment on above: Performed By: #### Y 2711 ####[facility], [address] [place] [address] Platelet mean volume (PMV) 11.3 fL High 6.6-10.5 [facility] Comment on above: Performed By: #### Y 2711 ####[facility], [address] [place] [address] Platelets 165 10 3/mcL Normal 150-450 [facility] Comment on above: Performed By: #### Y 2711 ####[facility], [address] [place] [address] WBC (Leukocytes) 5.20 10 3/mcL Normal 4.50-10.80 [facility] Comment on above: Performed By: #### Y 2711 ####[facility], [address] [place] [address] Laboratory - Blood bankon Albumin given [Vol] 4.1 g/dL Normal 3.2 - 4. 8 g/dL [facility], [facility].; [facility], [facility]. Laboratory - Chemistry and C hemistry - challengeon 10-27-2016 ALP [Catalytic activity/Vol] 67 U/L Normal 38 - 126 U/L [facility], [facility].; [facility], [facility]. Base excess Calc (BldMV) [Moles/Vol] 9.0 meq/L Normal 4.0 - 15.0 meq/L [facility], [facility].; [facility], [facility]. Bilirubin direct and total panel [Mass/Vol] 0.4 mg/dL Normal 0.2 - 1.2 mg/dL [facility], [facility].; [facility], [facility]. Cholesterol in LDL [Mass/Vol] 123 mg/dL Normal 0 - 129 mg/dL [facility], [facility].; [facility], [facility] Free T4 index Calc [Mass/Vol] 7.18 Normal 3.60 - 14.00 [facility]; [facility] Work Phone: GFR/1.73 sq M.predicted among blacks MDRD (S/P/Bld) [Vol rate/Area] mL/min/{1.73_m2} Normal [facility]; [facility], [facility] Work Phone: Globulin (S) [Mass/Vol] 2.9 g/dL Normal 1.5 - 3.8 g/dL [facility]; [facility] Iron binding capacity [Mass/Vol] 250 ug/dL Normal 250 - 500 ug/dL [facility]; [facility], [facility] Iron saturation [Mass fraction] 34 % Normal [facility]; [facility], [facility] Protein [Mass/Vol] 7.0 g/dL Normal 6.0 - 8.5 g/dL [facility].; [facility], [facility]. T4 [Mass/Vol] 6.3 ug/dL Normal 4.8 - 13.9 ug/dL [facility], [facility]. T4/Triiodothyronine (T3) uptake index [Mass ratio] 1.14 {ratio} Normal 0.76 - 1.23 {ratio} [facility]; [facility], [facility]. TSH Qn 2.94 m[IU]/L Normal 0.36 - 3.74 {mcIU/mL} [facility]; [facility] Laboratory - Hematology and Cell countson 10-27-2016 Basophils/100 WBC (Bld) 0.6 % Normal 0.0 - 2.5 % [facility].; [facility], [facility] Eosinophils/100 WBC (Bld) 2.6 % Normal 0.0 - 6.0 % [facility].; [facility], [facility] Erythrocyte distribution width (RBC) [Ratio] 13.7 % Normal 11.5 - 15.5 % [facility].; [facility], [facility] Hematocrit (Bld) [Volume fraction] 39.7 % Normal 34.0 - 46.0 % [facility], [facility].; [facility], [facility] Lymphocytes/100 WBC (Bld) 26.7 % Normal 20.0 - 40.0 % [facility].; [facility], [facility]. MCH (RBC) [Entitic mass] 31.1 pg Normal 27.0 - 33.0 pg [facility].; [facility], [facility] MCHC (RBC) [Mass/Vol] 33.3 g/dL Normal 32.0 - 36.0 g/dL [facility].; [facility], [facility] MCV (RBC) [Entitic vol] 93.4 fL Normal 80.0 - 99.0 fL [facility].; [facility], [facility] Monocytes/100 WBC (Bld) 7.2 % Normal 2.0 - 13.0 % [facility].; [facility], [facility]. Neutrophils (Bld) [#/Vol] 3.30 {10_3/mcL} Normal 1.90 - 7.90 {10_3/mcL} [facility].; [facility], [facility]. Neutrophils/100 WBC (Bld) 62.9 % Normal 50.0 - 75.0 % [facility].; [facility], [facility]. Platelet mean volume (Bld) [Entitic vol] 11.3 fL Abnormal 6.6 - 10.5 fL [facility].; [facility], [facility] Platelets (Bld) [#/Vol] 165 {10_3/mcL} Normal 15 0 - 450 {10_3/mcL} [facility].; [facility], [facility]. RBC (Bld) [#/Vol] 4.25 {10_6/mcL} Normal 4.10 - 5.30 {10_6/mcL} [facility], [facility] WBC (Bld) [#/Vol] 5.20 {10_3/mcL} Normal 4.50 - 10.80 {10_3/mcL} [facility], [facility].; [facility], [facility] No Panel Informationon 10-27 Topiramate Lvl 5.1 {UG/ML} Normal 5.0 - 20.0 {UG/ML} [facility].; [facility], [facility]. Laboratory - Blood bankon Albumin given [Vol] 4.1 g/dL Normal 3.2 - 4. 8 g/dL [facility].; [facility], [facility]. Laboratory - Chemistry and C hemistry - challengeon 11-05-2015 Albumin/Globulin [Mass ratio] 1.4 {ratio} Normal 0.9 - 1.6 [facility]; [facility], [facility]. ALP [Catalytic activity/Vol] 64 U/L Normal 38 - 126 U/L [facility]; [facility], [facility]. ALT [Catalytic activity/Vol] 24 U/L Normal 10 - 49 U/L [facility].; [facility], [facility]. AST [Catalytic activity/Vol] 13 U/L Normal 8 - 34 U/L [facility].; [facility], [facility] Base excess Calc (BldMV) [Moles/Vol] 9.0 meq/L Normal 4.0 - 15.0 meq/L [facility]; [facility], [facility]. Bilirubin direct and total panel [Mass/Vol] 0.6 mg/dL Normal 0.2 - 1.2 mg/dL [facility].; [facility], [facility] Calcium [Mass/Vol] 9.3 mg/dL Normal 8.4 - 10. 1 mg/dL [facility].; [facility]. Chloride [Moles/Vol] 108 mmol/L Normal 98 - 11 0 meq/L [facility].; [facility] Cholesterol [Mass/Vol] 219 mg/dL Abnormal 50 - 199 mg/dL [facility].; [facility]. Cholesterol in HDL [Mass/Vol] 55 mg/dL Normal 40 - 59 mg/dL [facility].; [facility]. Cholesterol in LDL [Mass/Vol] 138 mg/dL Abnormal 0 - 129 mg/dL [facility].; [facility]. CO2 [Moles/Vol] 25 mmol/L Normal 22 - 32 meq/L [facility]; [facility]. Creatinine [Mass/Vol] 0.69 mg/dL Normal 0.50 - 1.20 mg/dL [facility]; [facility]. Free T4 index Calc [Mass/Vol] 7.62 Normal 3.60 - 14.00 [facility].; [facility], [facility]. Work Phone: GFR/1.73 sq M.predicted among blacks MDRD (S/P/Bld) [Vol rate/Area] mL/min/{1.73_m2} Normal [facility].; [facility], [facility]. Work Phone: GFR/1.73 sq M.predicted among non-blacks MDRD (S/P/Bld) [Vol rate/Area] mL/min/{1.73_m2} Normal [facility].; [facility], [facility]. Work Phone: Globulin (S) [Mass/Vol] 2.9 g/dL Normal 1.5 - 3.8 g/dL [facility].; [facility], [facility] Glucose [Mass/Vol] 94 mg/dL Normal 82 - 115 mg/dL [facility].; [facility] Iron [Mass/Vol] 81 ug/dL Normal 37 - 170 ug/dL [facility]; [facility] Iron binding capacity [Mass/Vol] 270 ug/dL Normal 250 - 500 ug/dL [facility]; [facility] Iron saturation [Mass fraction] 30 % Normal [facility]; [facility] Potassium [Moles/Vol] 4.1 mmol/L Normal 3.5 - 5.0 meq/L [facility]; [facility] Protein [Mass/Vol] 7.0 g/dL Normal 6.0 - 8.5 g/dL [facility]; [facility] Sodium [Moles/Vol] 142 mmol/L Normal 136 - 145 meq/L [facility]; [facility] T4 [Mass/Vol] 6.0 ug/dL Normal 4.8 - 13.9 ug/dL [facility]; [facility] T4/Triiodothyronine (T3) uptake index [Mass ratio] 1.27 {ratio} Abnormal 0.76 - 1.23 {ratio} [facility]; [facility] Triglyceride [Mass/Vol] 128 mg/dL Normal 3 - 149 mg/dL [facility]; [facility] TSH Qn 4.20 m[IU]/L Abnormal 0.36 - 3.74 {mcIU/mL} [facility]; [facility] Urea nitrogen [Mass/Vol] 13.0 mg/dL Normal 8.0 - 22.0 mg/dL [facility]; [facility] Urea nitrogen/Creatinine [Mass ratio] 18.8 mg/mg Normal 10.0 - 22.0 [facility]; [facility] Laboratory - Drug toxicology on 11-05-2015 Topiramate [Mass/Vol] 5 {mcg/mL} Normal Eas [facility]; [facility] Laboratory - Hematology and Cell countson 11-05-2015 Basophils/100 WBC (Bld) 0.6 % Normal 0.0 - 2.5 % [facility]; [facility], [facility] Eosinophils/100 WBC (Bld) 3.3 % Normal 0.0 - 6.0 % [facility]; [facility] Erythrocyte distribution width (RBC) [Ratio] 14.0 % Normal 11.5 - 15.5 % [facility]; [facility] Hematocrit (Bld) [Volume fraction] 40.6 % Normal 34.0 - 46.0 % [facility]; [facility], [facility] Hemoglobin (Bld) [Mass/Vol] 13.4 g/dL Normal 12.0 - 16.0 g/dL [facility]; [facility], [facility] Lymphocytes/100 WBC (Bld) 28.9 % Normal 20.0 - 40.0 % [facility]; [facility], [facility]. MCH (RBC) [Entitic mass] 31.2 pg Normal 27.0 - 33.0 pg [facility]; [facility], [facility] MCHC (RBC) [Mass/Vol] 33.1 g/dL Normal 32.0 - 36.0 g/dL [facility], [facility]. MCV (RBC) [Entitic vol] 94.3 fL Normal 80.0 - 99.0 fL [facility]; [facility], [facility] Monocytes/100 WBC (Bld) 7.0 % Normal 2.0 - 13.0 % [facility].; [facility], [facility] Neutrophils (Bld) [#/Vol] 2.90 {10_3/mcL} Normal 1.90 - 7.90 {10_3/mcL} [facility], [facility]. Neutrophils/100 WBC (Bld) 60.2 % Normal 50.0 - 75.0 % [facility].; [facility], [facility] Platelet mean volume (Bld) [Entitic vol] 10.8 fL Abnormal 6.6 - 10.5 fL [facility].; [facility], [facility] Platelets (Bld) [#/Vol] 166 {10_3/mcL} Normal 15 0 - 450 {10_3/mcL} [facility], [facility]. RBC (Bld) [#/Vol] 4.31 {10_6/mcL} Normal 4.10 - 5.30 {10_6/mcL} [facility], [facility]. WBC (Bld) [#/Vol] 4.90 {10_3/mcL} Normal 4.50 - 10.80 {10_3/mcL} [facility].; [facility], [facility]. Laboratory - Chemistry and C hemistry - challengeon 11-13-2014 Albumin [Mass/Vol] 3.9 g/dL Normal 3.2 - 4.8 g/dL [facility]; [facility], [facility]. Albumin BCP dye [Mass/Vol] 3.9 g/dL Normal 3.2 - 4.8 g/dL [facility].; [facility], [facility]. Albumin/Globulin [Mass ratio] 1.3 {ratio} Normal 0.9 - 1.6 [facility]; [facility], [facility]. ALP [Catalytic activity/Vol] 73 U/L Normal 38 - 126 U/L [facility], [facility]. ALT [Catalytic activity/Vol] 22 U/L Normal 10 - 49 U/L [facility], [facility]. ALT No additional P-5'-P [Catalytic activity/Vol] 22 U/L Normal 10 - 49 U/L [facility]. ALT With P-5'-P [Catalytic activity/Vol] 22 U/L Normal 10 - 49 U/L [facility]. AST [Catalytic activity/Vol] 15 U/L Normal 8 - 34 U/L [facility]. AST With P-5'-P [Catalytic activity/Vol] 15 U/L Normal 8 - 34 U/L [facility]. Bilirubin [Mass/Vol] 0.4 mg/dL Normal 0.2 - 1 .2 mg/dL [facility] Bilirubin.direct [Mass/Vol] 0.4 mg/dL Normal 0.2 - 1.2 mg/dL [facility] Calcium [Mass/Vol] 9.2 mg/dL Normal 8.4 - 10. 1 mg/dL [facility]. Chloride [Moles/Vol] 107 mmol/L Normal 98 - 11 0 meq/L [facility]. CO2 [Moles/Vol] 27 mmol/L Normal 22 - 32 meq/L [facility]. Creatinine [Mass/Vol] 0.73 mg/dL Normal 0.50 - 1.20 mg/dL [facility]. GFR/1.73 sq M.predicted among blacks MDRD (S/P/Bld) [Vol rate/Area] mL/min/{1.73_m2} Normal [facility], [facility] Work Phone: GFR/1.73 sq M.predicted among non-blacks MDRD (S/P/Bld) [Vol rate/Area] mL/min/{1.73_m2} Normal [facility]; [facility] Work Phone: Globulin (S) [Mass/Vol] 2.9 g/dL Normal 1.5 - 3.8 g/dL [facility]; [facility] Glucose [Mass/Vol] 85 mg/dL Normal 82 - 115 mg/dL [facility]; [facility] Potassium [Moles/Vol] 4.1 mmol/L Normal 3.5 - 5.0 meq/L [facility]; [facility] Protein [Mass/Vol] 6.8 g/dL Normal 6.0 - 8.5 g/dL [facility]; [facility] Sodium [Moles/Vol] 141 mmol/L Normal 136 - 145 meq/L [facility]; [facility] Urea nitrogen [Mass/Vol] 13.0 mg/dL Normal 8.0 - 22.0 mg/dL [facility]; [facility] Urea nitrogen/Creatinine [Mass ratio] 17.8 mg/mg Normal 10.0 - 22.0 [facility]; [facility] Laboratory - Drug toxicology on 11-13-2014 Topiramate [Mass/Vol] 6 {mcg/mL} Normal Eas [facility]; [facility] Laboratory - Hematology and Cell countson 11-13-2014 Basophils/100 WBC (Bld) 0.8 % Normal 0.0 - 2.5 % [facility]; [facility] Eosinophils/100 WBC (Bld) 2.6 % Normal 0.0 - 6.0 % [facility]; [facility] Erythrocyte distribution width (RBC) [Ratio] 13.6 % Normal 11.5 - 15.5 % [facility]; [facility] Hematocrit (Bld) [Volume fraction] 38.4 % Normal 34.0 - 46.0 % [facility], [facility] Hemoglobin (Bld) [Mass/Vol] 13.0 g/dL Normal 12.0 - 16.0 g/dL [facility], [facility] Lymphocytes/100 WBC (Bld) 29.5 % Normal 20.0 - 40.0 % [facility], [facility] MCH (RBC) [Entitic mass] 32.0 pg Normal 27.0 - 33.0 pg [facility], [facility] MCHC (RBC) [Mass/Vol] 33.9 g/dL Normal 32.0 - 36.0 g/dL [facility], [facility] MCV (RBC) [Entitic vol] 94.4 fL Normal 80.0 - 99.0 fL [facility], [facility] Monocytes/100 WBC (Bld) 6.4 % Normal 2.0 - 13.0 % [facility].; [facility], [facility]. Neutrophils (Bld) [#/Vol] 3.50 {10_3/mcL} Normal 1.90 - 7.90 {10_3/mcL} [facility].; [facility], [facility] Neutrophils/100 WBC (Bld) 60.7 % Normal 50.0 - 75.0 % [facility], [facility]. Platelet mean volume (Bld) [Entitic vol] 11.4 fL Abnormal 6.6 - 10.5 fL [facility].; [facility], [facility]. Platelets (Bld) [#/Vol] 162 {10_3/mcL} Normal 15 0 - 450 {10_3/mcL} [facility].; [facility], [facility]. RBC (Bld) [#/Vol] 4.07 {10_6/mcL} Abnormal 4.10 - 5.30 {10_6/mcL} [facility], [facility] WBC (Bld) [#/Vol] 5.70 {10_3/mcL} Normal 4.50 - 10.80 {10_3/mcL} [facility], [facility] No Panel Informationon 11-13 Electrolyte Balance 7.0 meq/L Normal 4.0 - 15 .0 meq/L [facility]; [facility]. Laboratory - Blood bankon Albumin given [Vol] 4.1 g/dL Normal 3.2 - 4. 8 g/dL [facility]; [facility], [facility]. Laboratory - Chemistry and C hemistry - challengeon 11-14-2013 Albumin/Globulin [Mass ratio] 1.5 {ratio} Normal 0.9 - 1.6 [facility]; [facility], [facility]. ALP [Catalytic activity/Vol] 87 U/L Normal 38 - 126 U/L [facility], [facility]. ALT [Catalytic activity/Vol] 26 U/L Normal 10 - 49 U/L [facility], [facility]. AST [Catalytic activity/Vol] 20 U/L Normal 8 - 34 U/L [facility], [facility] Base excess Calc (BldMV) [Moles/Vol] 7.0 meq/L Normal 4.0 - 15.0 meq/L [facility]; [facility], [facility]. Bilirubin direct and total panel [Mass/Vol] 0.5 mg/dL Normal 0.2 - 1.2 mg/dL [facility]; [facility], [facility]. Calcium [Mass/Vol] 9.8 mg/dL Normal 8.4 - 10. 1 mg/dL [facility]; [facility], [facility]. Chloride [Moles/Vol] 108 mmol/L Normal 98 - 11 0 meq/L [facility]. Cholesterol [Mass/Vol] 206 mg/dL Abnormal 50 - 199 mg/dL [facility]; [facility]. Cholesterol in HDL [Mass/Vol] 61 mg/dL Abnormal 40 - 59 mg/dL [facility]. Cholesterol in LDL [Mass/Vol] 117 mg/dL Normal 0 - 129 mg/dL [facility]. CO2 [Moles/Vol] 27 mmol/L Normal 22 - 32 meq/L [facility]; [facility]. Creatinine [Mass/Vol] 0.75 mg/dL Normal 0.50 - 1.20 mg/dL [facility]; [facility] Free T4 index Calc [Mass/Vol] 7.87 Normal 3.60 - 14.00 [facility]; [facility]. Work Phone: GFR/1.73 sq M.predicted among blacks MDRD (S/P/Bld) [Vol rate/Area] mL/min/{1.73_m2} Normal [facility].; [facility]. Work Phone: GFR/1.73 sq M.predicted among non-blacks MDRD (S/P/Bld) [Vol rate/Area] mL/min/{1.73_m2} Normal [facility]. Work Phone: Globulin (S) [Mass/Vol] 2.8 g/dL Normal 1.5 - 3.8 g/dL [facility], [facility]. Glucose [Mass/Vol] 83 mg/dL Normal 82 - 115 mg/dL [facility], [facility] Iron [Mass/Vol] 93 ug/dL Normal 37 - 170 ug/dL [facility]; [facility] Iron binding capacity [Mass/Vol] 248 ug/dL Abnormal 250 - 500 ug/dL [facility]; [facility] Iron saturation [Mass fraction] 38 % Normal [facility]; [facility] Potassium [Moles/Vol] 4.0 mmol/L Normal 3.5 - 5.0 meq/L [facility]; [facility] Protein [Mass/Vol] 6.9 g/dL Normal 6.0 - 8.5 g/dL [facility]; [facility] Sodium [Moles/Vol] 142 mmol/L Normal 136 - 145 meq/L [facility]; [facility] T4 [Mass/Vol] 6.2 ug/dL Normal 4.8 - 13.9 ug/dL [facility]; [facility] T4/Triiodothyronine (T3) uptake index [Mass ratio] 1.27 {ratio} Abnormal 0.76 - 1.23 {ratio} [facility]; [facility] Triglyceride [Mass/Vol] 141 mg/dL Normal 3 - 149 mg/dL [facility]; [facility] TSH Qn 4.26 m[IU]/L Abnormal 0.36 - 3.74 {mcIU/mL} [facility]; [facility] Urea nitrogen [Mass/Vol] 10.0 mg/dL Normal 8.0 - 22.0 mg/dL [facility]; [facility] Urea nitrogen/Creatinine [Mass ratio] 13.3 mg/mg Normal 10.0 - 22.0 [facility]; [facility] Laboratory - Drug toxicology on 11-14-2013 Topiramate [Mass/Vol] 6 {mcg/mL} Normal Eas [facility]; [facility] Laboratory - Hematology and Cell countson 11-14-2013 Basophils/100 WBC (Bld) 0.8 % Normal 0.0 - 2.5 % [facility]; [facility] Eosinophils/100 WBC (Bld) 2.5 % Normal 0.0 - 6.0 % [facility]; [facility] Erythrocyte distribution width (RBC) [Ratio] 14.8 % Normal 11.5 - 15.5 % [facility]; [facility] Hematocrit (Bld) [Volume fraction] 37.8 % Normal 34.0 - 46.0 % [facility]; [facility] Hemoglobin (Bld) [Mass/Vol] 13.0 g/dL Normal 12.0 - 16.0 g/dL [facility]; [facility] Lymphocytes/100 WBC (Bld) 28.0 % Normal 20.0 - 40.0 % [facility]; [facility], [facility] MCH (RBC) [Entitic mass] 31.8 pg Normal 27.0 - 33.0 pg [facility]; [facility], [facility] MCHC (RBC) [Mass/Vol] 34.4 g/dL Normal 32.0 - 36.0 g/dL [facility], [facility] MCV (RBC) [Entitic vol] 92.3 fL Normal 80.0 - 99.0 fL [facility]; [facility] Monocytes/100 WBC (Bld) 7.9 % Normal 2.0 - 13.0 % [facility]; [facility], [facility] Neutrophils (Bld) [#/Vol] 3.90 {10_3/mcL} Normal 1.90 - 7.90 {10_3/mcL} [facility]; [facility], [facility] Neutrophils/100 WBC (Bld) 60.8 % Normal 50.0 - 75.0 % [facility]; [facility] Platelet mean volume (Bld) [Entitic vol] 11.1 fL Abnormal 6.6 - 10.5 fL [facility], [facility] Platelets (Bld) [#/Vol] 157 {10_3/mcL} Normal 15 0 - 450 {10_3/mcL} [facility], [facility]. RBC (Bld) [#/Vol] 4.09 {10_6/mcL} Abnormal 4.10 - 5.30 {10_6/mcL} [facility], [facility]. WBC (Bld) [#/Vol] 6.50 {10_3/mcL} Normal 4.50 - 10.80 {10_3/mcL} [facility], [facility]. Laboratory - Blood bankon Albumin given [Vol] 4.2 g/dL Normal 3.2 - 4. 8 g/dL [facility]; [facility], [facility]. Laboratory - Chemistry and C hemistry - challengeon 11-01-2012 Albumin/Globulin [Mass ratio] 1.6 {ratio} Normal 0.9 - 1.6 [facility]; [facility], [facility]. ALP [Catalytic activity/Vol] 79 U/L Normal 38 - 126 U/L [facility], [facility]. ALT [Catalytic activity/Vol] 29 U/L Normal 10 - 49 U/L [facility], [facility]. AST [Catalytic activity/Vol] 18 U/L Normal 8 - 34 U/L [facility], [facility] Base excess Calc (BldMV) [Moles/Vol] 11.0 meq/L Normal 4.0 - 15.0 meq/L [facility]; [facility] Bilirubin direct and total panel [Mass/Vol] 0.3 mg/dL Normal 0.2 - 1.2 mg/dL [facility]; [facility] Calcium [Mass/Vol] 9.5 mg/dL Normal 8.4 - 10. 1 mg/dL [facility]; [facility] Chloride [Moles/Vol] 108 mmol/L Normal 98 - 11 0 meq/L [facility]; [facility] Cholesterol [Mass/Vol] 219 mg/dL Abnormal 50 - 199 mg/dL [facility]; [facility] Cholesterol in HDL [Mass/Vol] 55 mg/dL Normal 40 - 59 mg/dL [facility]; [facility] Cholesterol in LDL [Mass/Vol] 125 mg/dL Normal 0 - 129 mg/dL [facility]; [facility] Cholesterol in VLDL [Mass/Vol] 39 mg/dL Normal [facility]; [facility] CO2 [Moles/Vol] 24 mmol/L Normal 22 - 32 meq/L [facility]; [facility] Creatinine [Mass/Vol] 0.78 mg/dL Normal 0.50 - 1.20 mg/dL [facility]; [facility] Free T4 index Calc [Mass/Vol] 8.33 Normal 3.60 - 14.00 [facility]; [facility], [facility] Work Phone: GFR/1.73 sq M.predicted among blacks MDRD (S/P/Bld) [Vol rate/Area] 60 mL/min/{1.73_m2} Normal [facility], [facility] Work Phone: GFR/1.73 sq M.predicted among non-blacks MDRD (S/P/Bld) [Vol rate/Area] 60 mL/min/{1.73_m2} Normal [facility]; [facility] Work Phone: Globulin (S) [Mass/Vol] 2.7 g/dL Normal 1.5 - 3.8 g/dL [facility]; [facility] Glucose [Mass/Vol] 85 mg/dL Normal 82 - 115 mg/dL [facility]; [facility] Iron [Mass/Vol] 78 ug/dL Normal 37 - 170 ug/dL [facility]; [facility] Iron binding capacity [Mass/Vol] 255 ug/dL Normal 250 - 500 ug/dL [facility]; [facility] Iron saturation [Mass fraction] 31 % Normal [facility]; [facility] Potassium [Moles/Vol] 4.3 mmol/L Normal 3.5 - 5.0 meq/L [facility]; [facility] Protein [Mass/Vol] 6.9 g/dL Normal 6.0 - 8.5 g/dL [facility]; [facility] Sodium [Moles/Vol] 143 mmol/L Normal 136 - 145 meq/L [facility]; [facility] T4 [Mass/Vol] 7.5 ug/dL Normal 4.8 - 13.9 ug/dL [facility]; [facility]. T4/Triiodothyronine (T3) uptake index [Mass ratio] 1.11 {ratio} Normal 0.76 - 1.23 {ratio} [facility]; [facility] Triglyceride [Mass/Vol] 196 mg/dL Abnormal 3 - 149 mg/dL [facility]; [facility] TSH Qn 3.38 m[IU]/L Normal 0.36 - 3.74 {mcIU/mL} [facility]; [facility] Urea nitrogen [Mass/Vol] 13.0 mg/dL Normal 8.0 - 22.0 mg/dL [facility]; [facility] Urea nitrogen/Creatinine [Mass ratio] 16.7 mg/mg Normal 10.0 - 22.0 [facility]; [facility] Laboratory - Drug toxicology on 11-01-2012 Topiramate [Mass/Vol] 5 {mcg/mL} Normal Eas [facility]; [facility] Laboratory - Hematology and Cell countson 11-01-2012 Basophils/100 WBC (Bld) 0.4 % Normal 0.0 - 2.5 % [facility]; [facility] Eosinophils/100 WBC (Bld) 1.5 % Normal 0.0 - 6.0 % [facility]; [facility] Erythrocyte distribution width (RBC) [Ratio] 13.9 % Normal 11.5 - 15.5 % [facility]; [facility] Hematocrit (Bld) [Volume fraction] 39.0 % Normal 34.0 - 46.0 % [facility]; [facility] Hemoglobin (Bld) [Mass/Vol] 12.5 g/dL Normal 12.0 - 16.0 g/dL [facility]; [facility] Lymphocytes/100 WBC (Bld) 27.4 % Normal 20.0 - 40.0 % [facility]; [facility], [facility] MCH (RBC) [Entitic mass] 30.2 pg Normal 27.0 - 33.0 pg [facility]; [facility], [facility] MCHC (RBC) [Mass/Vol] 32.1 g/dL Normal 32.0 - 36.0 g/dL [facility]; [facility], [facility]. MCV (RBC) [Entitic vol] 94.2 fL Normal 80.0 - 99.0 fL [facility].; [facility], [facility]. Monocytes/100 WBC (Bld) 6.1 % Normal 2.0 - 13.0 % [facility], [facility].; [facility], [facility]. Neutrophils (Bld) [#/Vol] 3.74 {10_3/mcL} Normal 1.90 - 7.90 {10_3/mcL} [facility], [facility].; [facility], [facility]. Neutrophils/100 WBC (Bld) 64.6 % Normal 50.0 - 75.0 % [facility].; [facility], [facility]. Platelet mean volume (Bld) [Entitic vol] 11.5 fL Abnormal 6.6 - 10.5 fL [facility].; [facility], [facility]. Platelets (Bld) [#/Vol] 135 {10_3/mcL} Abnormal 15 0 - 450 {10_3/mcL} [facility] [employer] [facility] [employer] RBC (Bld) [#/Vol] 4.14 {10_6/mcL} Normal 4.10 - 5.30 {10_6/mcL} [facility] [employer] [facility] [place], [facility].; [facility], [facility]. WBC (Bld) [#/Vol] 5.79 {10_3/mcL} Normal 4.50 - 10.80 {10_3/mcL} [facility] [employer] [facility] [employer] [facility] [employer] [facility] [place], [facility]. Vital Signs Date Time Vital Sign Value Performing Clinician Faci lity 11-21-2024 08:57-0400 Body height 152.4 cm No Primary Care Physician [facility] 11-21-2024 08:57-0400 Body mass index (BMI) [Ratio] 36.5 kg/m2 No Primary Care Physician [facility] 11-21-2024 08:57-0400 Body temperature 98 [degF] No Primary Care Physician [facility] 11-21-2024 08:57-0400 Body weight 84.82 kg No Primary Care Physician [facility] 11-21-2024 08:57-0400 Diastolic blood pressure 77 mm[Hg] No Primary Care Physician [facility] 11-21-2024 08:57-0400 Heart rate 71 /min No Primary Care Physician [facility] 11-21-2024 08:57-0400 Respiratory rate 16 /min No Primary Care Physician [facility] 11-21-2024 08:57-0400 SaO2% (BldA) [Mass fraction] 98 % No Primary Care Physician [facility] 11-21-2024 08:57-0400 Systolic blood pressure 137 mm[Hg] No Primary Care Physician [facility] 10-24-2024 08:35-0400 Body height 152.4 cm No Primary Care Physician [facility] 10-24-2024 08:35-0400 Body mass index (BMI) [Ratio] 36.7 kg/m2 No Primary Care Physician [facility] 10-24-2024 08:35-0400 Body temperature 98.2 [degF] No Primary Care Physician [facility] 10-24-2024 08:35-0400 Body weight 85.27 kg No Primary Care Physician [facility] 10-24-2024 08:35-0400 Diastolic blood pressure 76 mm[Hg] No Primary Care Physician [facility] 10-24-2024 08:35-0400 Heart rate 75 /min No Primary Care Physician [facility] 10-24-2024 08:35-0400 Respiratory rate 16 /min No Primary Care Physician [facility] 10-24-2024 08:35-0400 SaO2% (BldA) [Mass fraction] 97 % No Primary Care Physician [facility] 10-24-2024 08:35-0400 Systolic blood pressure 145 mm[Hg] No Primary Care Physician [facility] 09-17-2024 09:37-0400 Body height 152.4 cm No Primary Care Physician [facility] 09-17-2024 09:37-0400 Body mass index (BMI) [Ratio] 36.7 kg/m2 No Primary Care Physician [facility] 09-17-2024 09:37-0400 Body temperature 98.4 [degF] No Primary Care Physician [facility] [facility] 09-17-2024 09:37-0400 Body weight 85.27 kg No Primary Care Physician [facility] 09-17-2024 09:37-0400 Diastolic blood pressure 76 mm[Hg] No Primary Care Physician [facility] 09-17-2024 09:37-0400 Heart rate 72 /min No Primary Care Physician [facility] 09-17-2024 09:37-0400 Respiratory rate 15 /min No Primary Care Physician [facility] 09-17-2024 09:37-0400 SaO2% (BldA) [Mass fraction] 96 % No Primary Care Physician [facility] 09-17-2024 09:37-0400 Systolic blood pressure 153 mm[Hg] No Primary Care Physician [facility] 08-16-2024 10:16-0400 Body height 152.4 cm Carmen Barron RN [facility], [employer] [facility], [employer]. 08-16-2024 10:16-0400 Body mass index (BMI) [Ratio] 36.72 kg/m2 Carmen Barron RN [facility], [facility].; [facility], [facility]. 08-16-2024 10:16-0400 Body surface area Derived from formula 1.82 m2 Carmen Barron RN [facility], [facility].; [facility], [facility]. 08-16-2024 10:16-0400 Body weight 85.28 kg Carmen Barron RN [facility], Inc.; [facility], [facility]. 08-16-2024 10:16-0400 Diastolic blood pressure 80 mm[Hg] Carmen Barron RN [facility] [employer] [facility], [facility].; [facility] [employer] [facility], [employer]. Comment on above: Patient Position: Sitting; Cuff Location : Left Arm; Cuff Size: Large 08-16-2024 10:16-0400 Heart rate 72 /min Carmen Barron RN [facility] [employer] [facility], [employer] [facility] [employer] [facility] [place], [employer]. Comment on above: Pattern: Regular 08-16-2024 10:16-0400 Inhaled oxygen concentration 21 % Carmen Barron RN [facility], [employer] [facility], [facility] Comment on above: Room air 08-16-2024 10:16-0400 SaO2% (BldA) [Mass fraction] 96 % Carmen Barron RN [facility], Inc.; [employer] [facility], [facility] 08-16-2024 10:16-0400 Systolic blood pressure 145 mm[Hg] Carmen Barron RN [facility], [facility].; [facility] [employer] [facility] [place] Comment on above: Patient Position: Sitting; Cuff Location : Left Arm; Cuff Size: Large 04-19-2024 09:05-0500 Body height 152.4 cm Alisa Mcmanus RN [facility], [facility].; [facility], [facility] 04-19-2024 09:05-0500 Body mass index (BMI) [Ratio] 37.01 kg/m2 Alisa Mcmanus RN [facility], Inc.; [facility], [facility] 04-19-2024 09:05-0500 Body surface area Derived from formula 1.82 m2 Alisa Mcmanus RN [facility], [facility].; [facility], [facility] 04-19-2024 09:05-0500 Body weight 85.96 kg Alisa Mcmanus RN [facility], [facility].; [facility] [employer] [facility] 04-19-2024 09:05-0500 Diastolic blood pressure 85 mm[Hg] Alisa Mcmanus RN [facility], Inc.; [facility] [employer] [facility] Comment on above: Patient Position: Sitting; Cuff Location : Left Arm; Cuff Size: Standard 04-19-2024 09:05-0500 Heart rate 72 /min Alisa Mcmanus RN [facility], Inc.; [facility] [employer] [facility], [facility] Comment on above: Pattern: Regular 04-19-2024 09:05-0500 Inhaled oxygen concentration 21 % Alisa Mcmanus RN [facility], Inc.; [facility] [employer] [facility]. Comment on above: Room air 04-19-2024 09:05-0500 SaO2% (BldA) [Mass fraction] 96 % Alisa Mcmanus RN [facility], [facility].; [facility], [facility] 04-19-2024 09:05-0500 Systolic blood pressure 143 mm[Hg] Alisa Mcmanus RN [facility], [facility].; [facility], [facility] Comment on above: Patient Position: Sitting; Cuff Location : Left Arm; Cuff Size: Standard 03-18-2024 09:43-0500 Body weight 83.92 kg Amarjit Galarza MD Work Phone: [facility] 03-18-2024 09:43-0500 Diastolic blood pressure 95 mm[Hg] Amarjit Galarza MD Work Phone: [facility] 03-18-2024 09:43-0500 Heart rate 79 /min Amarjit Galarza MD Work Phone: [facility] 03-18-2024 09:43-0500 Systolic blood pressure 169 mm[Hg] Amarjit Galarza MD Work Phone: [facility] 08-04-2023 09:24-0400 Body height 153.67 cm Carmen Barron RN [facility], [facility].; [facility], [facility] 08-04-2023 09:24-0400 Body mass index (BMI) [Ratio] 36.3 kg/m2 Carmen Barron RN [facility], [facility].; [facility], [facility] 08-04-2023 09:24-0400 Body surface area Derived from formula 1.83 m2 Carmen Barron RN [facility], [facility].; [facility], [facility] 08-04-2023 09:24-0400 Body weight 85.73 kg Carmen Barron RN [facility], [facility].; [facility], [facility] 08-04-2023 09:24-0400 Diastolic blood pressure 81 mm[Hg] Carmen Barron RN [facility], [facility].; [facility] [employer] [facility] Comment on above: Patient Position: Sitting; Cuff Location : Left Arm; Cuff Size: Large 08-04-2023 09:24-0400 Heart rate 75 /min Carmen Barron RN [facility], [facility].; [facility] [employer] [facility] Comment on above: Pattern: Regular 08-04-2023 09:24-0400 Systolic blood pressure 134 mm[Hg] Carmen Barron RN [facility], Inc.; [facility] [employer] [facility] [place] Comment on above: Patient Position: Sitting; Cuff Location : Left Arm; Cuff Size: Large 04-28-2023 09:54-0500 Body height 153.67 cm Carmen Barron RN [facility], [facility].; [facility], [facility] 04-28-2023 09:54-0500 Body mass index (BMI) [Ratio] 36.98 kg/m2 Carmen Barron RN [facility], Inc.; [employer] [facility], [facility] 04-28-2023 09:54-0500 Body surface area Derived from formula 1.85 m2 Carmen Barron RN [facility], [facility].; [facility], [facility] 04-28-2023 09:54-0500 Body temperature 98.6 [degF] Carmen Barron RN [facility], [facility].; [facility] [employer] [facility] Comment on above: Method: Oral 04-28-2023 09:54-0500 Body weight 87.32 kg Carmen Barron RN [facility], [facility].; [facility], [facility] 04-28-2023 09:54-0500 Diastolic blood pressure 78 mm[Hg] Carmen Barron RN [facility], [facility].; [facility] [employer] [facility] Comment on above: Patient Position: Sitting; Cuff Location : Left Arm; Cuff Size: Large 04-28-2023 09:54-0500 Heart rate 73 /min Carmen Barron RN [facility], [facility].; [facility] [employer] [facility] [place] Comment on above: Pattern: Regular 04-28-2023 09:54-0500 Inhaled oxygen concentration 21 % Carmen Barron RN [facility], [facility]. Comment on above: Room air 04-28-2023 09:54-0500 SaO2% (BldA) [Mass fraction] 96 % Carmen Barron RN [facility], [employer] [employer] [facility] [place], [employer]. 04-28-2023 09:54-0500 Systolic blood pressure 133 mm[Hg] [facility], [employer]. Comment on above: Patient Position: Sitting; Cuff Location : Left Arm; Cuff Size: Large 12-01-2022 11:22-0400 Body height 153.67 cm [facility], [employer]. 12-01-2022 11:22-0400 Body mass index (BMI) [Ratio] 36.3 kg/m2 [facility]emima [facility]. 12-01-2022 11:22-0400 Body surface area Derived from formula 1.83 m2 [facility]emima [facility]. 12-01-2022 11:22-0400 Body weight 85.73 kg Jemima Melchor RN [facility], [facility].; [facility]. 12-01-2022 11:22-0400 Diastolic blood pressure 85 mm[Hg] Jemima [facility].; [facility] [employer] [facility]. Comment on above: Patient Position: Sitting; Cuff Location : Left Arm; Cuff Size: Standard 12-01-2022 11:22-0400 Heart rate 71 /min Jemima Melchor RN [facility], [employer] [employer] [facility]. Comment on above: Pattern: Regular 12-01-2022 11:22-0400 Inhaled oxygen concentration 21 % [facility]emima [facility].; [facility] [employer] [facility]. Comment on above: Room air 12-01-2022 11:22-0400 SaO2% (BldA) [Mass fraction] 97 % Jemima Melchor RN [facility], Inc.; [facility], [facility] 12-01-2022 11:22-0400 Systolic blood pressure 145 mm[Hg] Jemima Melchor RN [facility], Inc.; [facility], [facility] Comment on above: Patient Position: Sitting; Cuff Location : Left Arm; Cuff Size: Standard 10-28-2022 11:130400 Body height 153.67 cm Carmen Barron RN [facility], Inc.; [facility], [facility] 10-28-2022 11:130400 Body mass index (BMI) [Ratio] 36.69 kg/m2 Carmen Barron RN [facility], [facility].; [facility], [facility] 10-28-2022 11:130400 Body surface area Derived from formula 1.84 m2 Carmen Barron RN [facility], [facility].; [facility], [facility] 10-28-2022 11:130400 Body weight 86.64 kg Carmen Barron RN [facility], [employer] [facility], [facility] 10-28-2022 11:13-0400 Diastolic blood pressure 77 mm[Hg] Carmen Barron RN [facility], [facility].; [facility], [employer]. Comment on above: Patient Position: Sitting; Cuff Location : Left Arm; Cuff Size: Large 10-28-2022 11:13-0400 Heart rate 70 /min Carmen Barron RN [facility], Inc.; [facility] [employer] [facility], [employer]. Comment on above: Pattern: Regular 10-28-2022 11:13-0400 Systolic blood pressure 124 mm[Hg] Carmen Barron RN [facility], [facility].; [facility] [employer] [facility] [place], [facility] Comment on above: Patient Position: Sitting; Cuff Location : Left Arm; Cuff Size: Large 07-29-2022 09:46-0400 Body height 153.67 cm Carmen Barron RN [facility], [facility].; [facility], [facility] 07-29-2022 09:46-0400 Body mass index (BMI) [Ratio] 36.69 kg/m2 Carmen Barron RN [facility], [facility].; [facility], [facility] 07-29-2022 09:46-0400 Body surface area Derived from formula 1.84 m2 Carmen Barron RN [facility], [facility].; [facility], [facility] 07-29-2022 09:46-0400 Body weight 86.64 kg Caremn Barron RN [facility], [facility].; [facility], [facility] 07-29-2022 09:46-0400 Diastolic blood pressure 83 mm[Hg] Carmen Barron RN [facility], [facility].; [facility], [facility] Comment on above: Patient Position: Sitting; Cuff Location : Left Arm; Cuff Size: Large 07-29-2022 09:46-0400 Heart rate 73 /min Carmen Barron RN [facility], [facility].; [facility], [facility] Comment on above: Pattern: Regular 07-29-2022 09:46-0400 Systolic blood pressure 138 mm[Hg] Carmen Barron RN [facility], [facility].; [facility], [facility] Comment on above: Patient Position: Sitting; Cuff Location : Left Arm; Cuff Size: Large 04-20-2022 09:08-0500 Body height 153.67 cm Alisa Mcmanus RN [facility], [facility].; [facility], [facility] 04-20-2022 09:08-0500 Body mass index (BMI) [Ratio] 36.3 kg/m2 Alisa Mcmanus RN [facility], [facility].; [facility], [facility] 04-20-2022 09:08-0500 Body surface area Derived from formula 1.83 m2 Alisa Mcmanus RN [facility], [facility].; [facility], [facility] 04-20-2022 09:08-0500 Body temperature 97.8 [degF] Alisa Mcmanus RN [facility], [facility].; [facility], [facility] Comment on above: Method: Oral 04-20-2022 09:08-0500 Body weight 85.73 kg Alisa Mcmanus RN [facility], [facility].; [facility], [facility] 04-20-2022 09:08-0500 Diastolic blood pressure 77 mm[Hg] Alisa Mcmanus RN [facility], [facility].; [facility], [facility] Comment on above: Patient Position: Sitting; Cuff Location : Left Arm; Cuff Size: Standard 04-20-2022 09:08-0500 Heart rate 70 /min Alisa Mcmanus RN [facility], [facility].; [facility], [facility] Comment on above: Pattern: Regular 04-20-2022 09:08-0500 Inhaled oxygen concentration 21 % Alisa Mcmanus RN [facility], [facility].; [facility], [facility] Comment on above: Room air 04-20-2022 09:08-0500 SaO2% (BldA) [Mass fraction] 98 % Alisa Mcmanus RN [facility], [facility].; [facility], [facility] 04-20-2022 09:08-0500 Systolic blood pressure 143 mm[Hg] Alisa Mcmanus RN [facility], [facility].; [facility], [facility] Comment on above: Patient Position: Sitting; Cuff Location : Left Arm; Cuff Size: Standard 10-20-2021 09:31-0400 Body height 153.67 cm Alisa Mcmanus RN [facility], [facility].; [facility], [facility] 10-20-2021 09:31-0400 Body mass index (BMI) [Ratio] 36.11 kg/m2 Alisa Mcmanus RN [facility], [facility].; [facility] [employer] [facility] 10-20-2021 09:31-0400 Body surface area Derived from formula 1.83 m2 Alisa Mcmanus RN [facility], [facility].; [facility], [facility] 10-20-2021 09:31-0400 Body temperature 97.9 [degF] Alisa Mcmanus RN [facility], [facility].; [facility], [facility] Comment on above: Method: Oral 10-20-2021 09:31-0400 Body weight 85.28 kg Alisa Mcmanus RN [facility], [facility].; [facility], [facility] 10-20-2021 09:31-0400 Diastolic blood pressure 84 mm[Hg] Alisa Mcmanus RN [facility], [facility].; [facility], [facility] Comment on above: Patient Position: Sitting; Cuff Location : Left Arm; Cuff Size: Standard 10-20-2021 09:31-0400 Heart rate 68 /min Alisa Mcmanus RN [facility], [facility], [facility] Comment on above: Pattern: Regular 10-20-2021 09:31-0400 Inhaled oxygen concentration 21 % Alisa Mcmanus RN [facility], [facility].; [facility], [facility] Comment on above: Room air 10-20-2021 09:31-0400 SaO2% (BldA) [Mass fraction] 96 % Alisa Mcmanus RN [facility], [facility].; [facility], [facility] 10-20-2021 09:31-0400 Systolic blood pressure 142 mm[Hg] Alisa Mcmanus RN [facility], [facility].; [facility], [facility] Comment on above: Patient Position: Sitting; Cuff Location : Left Arm; Cuff Size: Standard 03-19-2021 11:110500 Body height 153.67 cm [facility], [facility].; [facility], [facility]. 03-19-2021 11:110500 Body mass index (BMI) [Ratio] 36.11 kg/m2 [facility], [facility].; [facility], [facility] 03-19-2021 11:110500 Body surface area Derived from formula 1.83 m2 [facility], [facility].; [facility], [facility] 03-19-2021 11:11-0500 Body weight 85.28 kg DI [facility], [facility].; [facility], [facility] 03-19-2021 11:11-0500 Diastolic blood pressure 88 mm[Hg] DI [facility], [facility].; [facility], [facility] Comment on above: Patient Position: Sitting; Cuff Location : Left Arm; Cuff Size: Standard 03-19-2021 11:11-0500 Heart rate 73 /min DI [facility], [facility] [employer] [facility] Comment on above: Pattern: Regular 03-19-2021 11:11-0500 Systolic blood pressure 143 mm[Hg] DI [facility] [employer] [facility], [facility].; [facility] [employer] [facility] [place], [facility] Comment on above: Patient Position: Sitting; Cuff Location : Left Arm; Cuff Size: Standard 10-28-2020 13:00-0400 Body height 153.67 cm RENE MELCHOR RN [facility] [employer] [facility] [place], [facility] [employer] [facility] [place] 10-28-2020 13:00-0400 Body mass index (BMI) [Ratio] 35.34 kg/m2 RENE MELCHOR RN [facility] [employer] [facility] [place], [facility] 10-28-2020 13:00-0400 Body surface area Derived from formula 1.81 m2 RENE MELCHOR RN [facility] [employer] [facility] [place], [facility].; [facility] [employer] [facility] [place] 10-28-2020 13:00-0400 Body weight 83.46 kg RENE MELCHOR RN [facility] [employer] [facility] [place], [facility].; [facility] [employer] [facility] [place] 10-28-2020 13:00-0400 Diastolic blood pressure 76 mm[Hg] RENE MELCHOR RN [facility] [employer] [facility] [place].; [facility] [employer] [facility] [place] Comment on above: Patient Position: Sitting; Cuff Location : Left Arm; Cuff Size: Standard 10-28-2020 13:00-0400 Heart rate 79 /min RENE MELCHOR RN [facility], [employer] [facility] [employer] [facility] [place] Comment on above: Pattern: Regular 10-28-2020 13:00-0400 Systolic blood pressure 133 mm[Hg] RENE MELCHOR RN [facility], [facility].; [facility] [employer] [facility] [place] Comment on above: Patient Position: Sitting; Cuff Location : Left Arm; Cuff Size: Standard 05-07-2020 09:55-0500 Body height 153.67 cm Mary Abdalla RN [facility], Inc.; [employer] [facility] 05-07-2020 09:55-0500 Body mass index (BMI) [Ratio] 35.69 kg/m2 Mary Abdalla RN [facility], [facility].; [facility], [facility] 05-07-2020 09:55-0500 Body surface area Derived from formula 1.82 m2 Mary Abdalla RN [facility], [facility].; [facility], [facility] 05-07-2020 09:55-0500 Body weight 84.28 kg Mary Abdalla RN [facility], [employer] [facility], [facility] 05-07-2020 09:55-0500 Diastolic blood pressure 70 mm[Hg] Mary Abdalla RN [facility], [facility].; [facility] [employer] [facility] [place] Comment on above: Patient Position: Sitting; Cuff Location : Left Arm; Cuff Size: Large 05-07-2020 09:55-0500 Heart rate 72 /min Mary Abdalla RN [facility] [employer] [facility] [place] [employer] [facility] [place] Comment on above: Pattern: Regular 05-07-2020 09:55-0500 Systolic blood pressure 132 mm[Hg] Mary Abdalla RN [facility] [employer] [facility] [employer] [facility] [place] Comment on above: Patient Position: Sitting; Cuff Location : Left Arm; Cuff Size: Large 10-31-2019 08:47-0400 Body height 153.67 cm Carmen Barron RN [facility] [employer] [facility] [place], [employer] [facility], [facility] 10-31-2019 08:47-0400 Body mass index (BMI) [Ratio] 35.54 kg/m2 Carmen Barron RN [facility], [facility].; [facility], [facility] 10-31-2019 08:47-0400 Body surface area Derived from formula 1.82 m2 Carmen Barron RN [facility], [facility].; [facility], [facility]. 10-31-2019 08:47-0400 Body weight 83.92 kg Carmen Barron RN [facility], [facility].; [facility], [facility]. 10-31-2019 08:47-0400 Diastolic blood pressure 82 mm[Hg] Carmen Barron RN [facility], [facility].; [facility], [facility] Comment on above: Patient Position: Sitting; Cuff Location : Left Arm; Cuff Size: Large 10-31-2019 08:47-0400 Heart rate 63 /min Carmen Barron RN [facility], [facility].; [facility], [facility] Comment on above: Pattern: Regular 10-31-2019 08:47-0400 Systolic blood pressure 148 mm[Hg] Carmen Barron RN [facility], [facility].; [facility], [facility] Comment on above: Patient Position: Sitting; Cuff Location : Left Arm; Cuff Size: Large 05-02-2019 09:57-0500 Body height 153.67 cm Mary Abdalla RN [facility], [facility].; [facility], [facility] 05-02-2019 09:57-0500 Body mass index (BMI) [Ratio] 35.54 kg/m2 Mary Abdalla RN [facility], [facility].; [facility], [facility] 05-02-2019 09:57-0500 Body surface area Derived from formula 1.82 m2 Mary Abdalla RN [facility], [facility].; [facility], [employer] 05-02-2019 09:57-0500 Body weight 83.92 kg Mary Abdalla RN [facility], [employer] [facility], [facility] 05-02-2019 09:57-0500 Diastolic blood pressure 77 mm[Hg] Mary Abdalla RN [facility] [employer] [facility].; [employer] [facility] [employer] [facility] [place] Comment on above: Patient Position: Sitting; Cuff Location : Left Arm; Cuff Size: Large 05-02-2019 09:57-0500 Heart rate 75 /min Mary Abdalla RN [facility] [employer] [facility] [place], [facility] [employer] [facility] [employer] Comment on above: Pattern: Regular 05-02-2019 09:57-0500 Systolic blood pressure 120 mm[Hg] Mary Abdalla RN [facility] [employer] [facility] [employer] [facility] [employer] [facility] [place] Comment on above: Patient Position: Sitting; Cuff Location : Left Arm; Cuff Size: Large 10-25-2018 09:07-0400 Body height 153.67 cm Carmen Barron RN [facility] [employer] [employer] [facility], [facility].; [facility] [employer] [facility] [place] 10-25-2018 09:07-0400 Body mass index (BMI) [Ratio] 34.77 kg/m2 Carmen Barron RN [facility] [employer] [facility] [place], [facility].; [facility] Gupta [employer] [facility] [place]. 10-25-2018 09:07-0400 Body surface area Derived from formula 1.8 m2 Carmen Barron RN [facility] [employer] [facility] [place], [facility].; [facility] [employer] [facility] [place]. 10-25-2018 09:07-0400 Body weight 82.1 kg Carmen Barron RN [facility] [employer] [facility] [place], [facility].; [employer] [employer] [facility] [place]. 10-25-2018 09:07-0400 Diastolic blood pressure 83 mm[Hg] Carmen Barron RN [facility] [employer] [facility] [place], [facility].; [employer] [employer], [employer] Comment on above: Patient Position: Sitting; Cuff Location : Left Arm; Cuff Size: Large 10-25-2018 09:07-0400 Heart rate 67 /min [facility] [place].; [employer] [facility] [employer], [employer]. Comment on above: Pattern: Regular 10-25-2018 09:07-0400 Systolic blood pressure 126 mm[Hg] Carmen Barron RN [facility] [place], [facility].; [employer] [facility] [employer] [facility] [place]. Comment on above: Patient Position: Sitting; Cuff Location : Left Arm; Cuff Size: Large 04-26-2018 10:03-0500 Body height 153.67 cm Sindy Light [employer] [facility] [place], [facility].; [employer] Kuldeep [employer] [facility] [place] 04-26-2018 10:03-0500 Body mass index (BMI) [Ratio] 35.34 kg/m2 Sindy Oakes [facility] [employer] [facility] [place], [facility].; [employer] Kuldeep Gupta [employer] [facility] [place]. 04-26-2018 10:03-0500 Body surface area Derived from formula 1.81 m2 Sindy Rob [facility] [employer] [facility] [place].; [facility] [employer] [facility] [place]. 04-26-2018 10:03-0500 Body weight 83.46 kg Sindy Rob [facility] [employer] [facility] [place], [facility].; [employer], [employer]. 04-26-2018 10:03-0500 Diastolic blood pressure 74 mm[Hg] Sindy Rob Joost [facility] [place], [facility].; [employer], Inc. Comment on above: Patient Position: Sitting; Cuff Location : Right Arm; Cuff Size: Standard 04-26-2018 10:03-0500 Heart rate 82 /min Sindy Rob Oakes Kuldeep [employer] [facility] [place], [facility].; [employer], Inc. Comment on above: Pattern: Regular 04-26-2018 10:03-0500 Systolic blood pressure 115 mm[Hg] Sindy Rob Oakes [facility] [employer] [facility] [place], [facility].; [employer] [facility] [employer] [facility] [place]. Comment on above: Patient Position: Sitting; Cuff Location : Right Arm; Cuff Size: Standard 10-26-2017 09:09-0400 Body height 153.67 cm Mary Abdalla RN [employer] [facility] [place], [facility].; [facility] [employer], [employer]. 10-26-2017 09:09-0400 Body mass index (BMI) [Ratio] 34.88 kg/m2 Mary Abdalla RN [facility] [employer] [facility] [place], [facility].; Pan[employer]iva [employer] [facility] [place]. 10-26-2017 09:09-0400 Body surface area Derived from formula 1.8 m2 Mary Abdalla RN [place] [employer] [facility] [place], [facility].; [facility] Gupta [employer], Inc. 10-26-2017 09:09-0400 Body weight 82.37 kg Mary Abdalla RN [facility], Inc.; [employer] [facility] [employer] [facility] [place]. 10-26-2017 09:09-0400 Diastolic blood pressure 87 mm[Hg] Mary Abdalla RN [facility] [employer] [facility] [place], [facility].; [employer], [employer]. Comment on above: Patient Position: Sitting; Cuff Location : Left Arm; Cuff Size: Large 10-26-2017 09:09-0400 Heart rate 64 /min Mary Abdalla RN [facility] [employer] [facility] [place], [facility].; [employer] [facility] [employer], [employer]. Comment on above: Pattern: Regular 10-26-2017 09:09-0400 Systolic blood pressure 127 mm[Hg] Mary Abdalla RN [facility] [employer] [facility] [place], [facility].; [employer], [employer]. Comment on above: Patient Position: Sitting; Cuff Location : Left Arm; Cuff Size: Large 04-27-2017 10:19-0500 Body height 153.67 cm Mary Abdalla RN [facility] [employer] [facility] [place], [facility].; [facility] [employer] [facility] [place]. 04-27-2017 10:19-0500 Body mass index (BMI) [Ratio] 34.81 kg/m2 Mary Abdalla RN [facility] [employer] [facility] [place], [facility].; [facility] [employer] [facility] [place]. 04-27-2017 10:19-0500 Body surface area Derived from formula 1.8 m2 Mary Abdalla RN [facility] [employer] [facility] [place], [facility].; [facility] [employer] [facility] [place]. 04-27-2017 10:19-0500 Body weight 82.19 kg Mary Abdalla RN [facility] [employer] [facility] [place], [facility].; [facility] [employer], [employer]. 04-27-2017 10:19-0500 Diastolic blood pressure 85 mm[Hg] Mary Abdalla RN [facility] [employer] [facility] [place], [facility].; [employer] [facility] [employer], [employer]. Comment on above: Patient Position: Sitting; Cuff Location : Left Arm; Cuff Size: Large 04-27-2017 10:19-0500 Heart rate 66 /min Mary Abdalla RN [facility] [employer] [facility] [place], [facility].; [employer]. Comment on above: Pattern: Regular 04-27-2017 10:19-0500 Systolic blood pressure 139 mm[Hg] Mary Abdalla RN [facility] [employer] [facility] [facility] [employer]. Comment on above: Patient Position: Sitting; Cuff Location : Left Arm; Cuff Size: Large 10-27-2016 10:08-0400 Body height 153.67 cm Mary Abdalla RN [facility] [employer] [facility] [place], youcalc.; [facility] [employer] [facility] [employer] 10-27-2016 10:08-0400 Body mass index (BMI) [Ratio] 33.81 kg/m2 Mary Abdalla RN [facility] [employer] [facility] [place], youcalc.; [facility] [employer] [facility]. 10-27-2016 10:08-0400 Body surface area Derived from formula 1.78 m2 Mary Abdalla RN [facility] [employer] [facility] [place], youcalc.; [facility] [employer] [facility] [employer]. 10-27-2016 10:08-0400 Body weight 79.83 kg Mary Abdalla RN [facility] [employer] [facility] [place], [facility].; [facility] [employer] [facility]. 10-27-2016 10:08-0400 Diastolic blood pressure 83 mm[Hg] Mary Abdalla RN [facility] [employer] [facility] [employer].; [facility] [employer] [facility]. Comment on above: Patient Position: Sitting; Cuff Location : Left Arm; Cuff Size: Large 10-27-2016 10:08-0400 Heart rate 66 /min Mary Abdalla RN [facility] [employer] [facility] [place], youcalc.; [facility] [employer]. Comment on above: Pattern: Regular 10-27-2016 10:08-0400 Systolic blood pressure 134 mm[Hg] Mary Abdalla RN [facility] [employer] [facility] [place], youcalc.; [employer] [facility] [employer]. Comment on above: Patient Position: Sitting; Cuff Location : Left Arm; Cuff Size: Large 05-05-2016 14:53-0500 Body weight 78.47 kg Carmen Barron RN [facility] [employer] [facility] [place], [facility].; [employer], [employer]. 05-05-2016 14:53-0500 Diastolic blood pressure 85 mm[Hg] Carmen Barron RN [facility] [employer] [facility] [employer].; [employer] [facility] [employer] [facility] [place] [employer]. Comment on above: Patient Position: Sitting; Cuff Location : Left Arm; Cuff Size: Large 05-05-2016 14:53-0500 Heart rate 67 /min Carmen Barron RN [facility] [employer] [facility] [place] [employer].; [employer] [facility] [employer] [facility] [place] [employer]. Comment on above: Pattern: Regular 05-05-2016 14:53-0500 Systolic blood pressure 138 mm[Hg] Carmen Barron RN [facility] [place].; [employer] [facility] [employer] [facility] [place] [employer]. Comment on above: Patient Position: Sitting; Cuff Location : Left Arm; Cuff Size: Large 11-05-2015 09:05-0400 Body height 153.67 cm JUICE CHAVEZMettlOGRontal ApplicationsP-C Work Phone: [facility] [employer] [facility] [employer] [facility] [place] [employer]. 11-05-2015 09:05-0400 Body mass index (BMI) [Ratio] 33.04 kg/m2 JUICE Rotech HealthcareP-C Work Phone: [facility] [employer] [facility] [place] [employer].; [employer] [facility] [employer] [facility] [place] [employer]. 11-05-2015 09:05-0400 Body surface area Derived from formula 1.76 m2 JUICE Rotech HealthcareP-C Work Phone: [facility] [employer] [facility] [employer]. 11-05-2015 09:05-0400 Body weight 78.02 kg JUICE CHAVEZOurpalmLESLY DATA MINING ANALYST-C Work Phone: [facility] Hospital[facility].; [employer] [facility] [employer] [facility] [place] [employer]. 11-05-2015 09:05-0400 Diastolic blood pressure 77 mm[Hg] JUICE CHAVEZCopperfastenP-C Work Phone: [facility].; [employer] [facility] [employer]. Comment on above: Patient Position: Sitting; Cuff Location : Left Arm; Cuff Size: Standard 11-05-2015 09:05-0400 Heart rate 64 /min JUICE CHAVEZCopperfastenP-C Work Phone: [facility] Hospital[facility] [place].; [employer]. Comment on above: Pattern: Regular 11-05-2015 09:05-0400 Systolic blood pressure 119 mm[Hg] JUICE ALEXANDERP-Roseline Work Phone: [facility] [place].; [employer]. Comment on above: Patient Position: Sitting; Cuff Location : Left Arm; Cuff Size: Standard 05-14-2015 09:58-0500 Body height 154.94 cm Carmen Barron RN [facility] [place], youcalc.; [facility] [employer] [facility] [place], [facility]. 05-14-2015 09:58-0500 Body mass index (BMI) [Ratio] 32.31 kg/m2 Carmen Barron RN [facility] [employer] [facility] [place], youcalc.; [facility] [employer] [facility] [place], youcalc. 05-14-2015 09:58-0500 Body surface area Derived from formula 1.77 m2 Carmen Barron RN [facility] [place], youcalc.; [facility] Gupta [employer] [facility] [place], [facility]. 05-14-2015 09:58-0500 Body weight 77.57 kg Carmen Barron RN [facility] [employer] [facility] [place], youcalc.; [facility] [employer] [facility] [place], [facility]. 05-14-2015 09:58-0500 Diastolic blood pressure 84 mm[Hg] Carmen Barron RN [facility] [employer] [facility] [place], youcalc.; [facility] [employer], [employer]. Comment on above: Patient Position: Sitting; Cuff Location : Left Arm; Cuff Size: Large 05-14-2015 09:58-0500 Heart rate 65 /min Carmen Barron RN [facility] [employer] [facility] [place], youcalc.; [employer] [facility] [employer], [employer]. Comment on above: Pattern: Regular 05-14-2015 09:58-0500 Systolic blood pressure 141 mm[Hg] Carmen Barron RN [facility] [employer] [facility] [place], youcalc.; [employer] [facility] [employer], [employer]. Comment on above: Patient Position: Sitting; Cuff Location : Left Arm; Cuff Size: Large 11-13-2014 09:49-0400 Body height 153.67 cm Carmen Barron RN [facility], Inc.; [facility] 11-13-2014 09:49-0400 Body mass index (BMI) [Ratio] 33.04 kg/m2 Carmen Barron RN [facility], Inc.; [facility] 11-13-2014 09:49-0400 Body surface area Derived from formula 1.76 m2 Carmen Barron RN [facility], Inc.; [facility] 11-13-2014 09:49-0400 Body weight 78.02 kg Carmen Barron RN [facility], Inc.; [facility] 11-13-2014 09:49-0400 Diastolic blood pressure 83 mm[Hg] Carmen Barron RN [facility], Inc.; [facility] [employer] [facility] [place], [facility]. Comment on above: Patient Position: Sitting; Cuff Location : Left Arm; Cuff Size: Large 11-13-2014 09:49-0400 Heart rate 64 /min Carmen Barron RN [facility], Inc.; [facility] Comment on above: Pattern: Regular 11-13-2014 09:49-0400 Systolic blood pressure 145 mm[Hg] Carmen Barron RN [facility], Inc.; [facility]. Comment on above: Patient Position: Sitting; Cuff Location : Left Arm; Cuff Size: Large 05-15-2014 09:51-0500 Body height 156.21 cm Carmen Barron RN [facility], Inc.; [facility] 05-15-2014 09:51-0500 Body mass index (BMI) [Ratio] 31.04 kg/m2 Carmen Barron RN [facility], Inc.; [facility] 05-15-2014 09:51-0500 Body surface area Derived from formula 1.76 m2 Carmen Barron RN [facility], Inc.; [facility]. 05-15-2014 09:51-0500 Body weight 75.75 kg Carmen Barron RN [facility] [place], [facility].; [facility] [employer] [facility] [place]. 05-15-2014 09:51-0500 Diastolic blood pressure 78 mm[Hg] Carmen Barron RN [facility], youcalc.; [employer] [facility] Gu[employer] [facility] [place]. Comment on above: Patient Position: Sitting; Cuff Location : Left Arm; Cuff Size: Large 05-15-2014 09:51-0500 Heart rate 71 /min Carmen Barron RN [facility] [employer] [facility] [place], [facility].; [facility] [employer] [facility] [place], [facility]. Comment on above: Pattern: Regular 05-15-2014 09:51-0500 Systolic blood pressure 128 mm[Hg] Carmen Barron RN [facility] [employer] [facility] [place], youcalc.; [facility] [employer] [facility] [place], youcalc. Comment on above: Patient Position: Sitting; Cuff Location : Left Arm; Cuff Size: Large 11-14-2013 09:02-0400 Body height 156.21 cm Carmen Barron RN [facility] [employer] [facility] [place], [facility].; [facility] [employer] [facility] [place]. 11-14-2013 09:02-0400 Body mass index (BMI) [Ratio] 30.76 kg/m2 Carmen Barron RN [facility], Inc.; [facility] [employer] [facility] [place], [facility]. 11-14-2013 09:02-0400 Body surface area Derived from formula 1.75 m2 Carmen Barron RN [facility], Inc.; [facility] [employer] [facility] [place], [facility]. 11-14-2013 09:02-0400 Body weight 75.07 kg Carmen Barron RN [facility] [employer] [facility] [place], [facility].; [facility] [employer] [facility] [place], [facility]. 11-14-2013 09:02-0400 Diastolic blood pressure 87 mm[Hg] Carmen Barron RN [facility] [employer] [facility] [place], youcalc.; [facility] [employer] [facility] [place], youcalc. Comment on above: Patient Position: Sitting; Cuff Location : Left Arm; Cuff Size: Large 11-14-2013 09:02-0400 Heart rate 60 /min Carmen Barron RN [facility] [employer] [facility] [place], [facility].; [facility] Gu[employer] [facility] [place], [facility]. Comment on above: Pattern: Regular 11-14-2013 09:02-0400 Systolic blood pressure 144 mm[Hg] Carmen Barron RN [facility], Inc.; [facility] [employer] [facility] [place], [employer]calc. Comment on above: Patient Position: Sitting; Cuff Location : Left Arm; Cuff Size: Large 06-20-2013 10:34-0500 Body height 156.21 cm Carmen Barron RN [facility], Inc.; [facility] 06-20-2013 10:34-0500 Body mass index (BMI) [Ratio] 32.16 kg/m2 Carmen Barron RN [facility], Inc.; [facility], [facility] 06-20-2013 10:34-0500 Body surface area Derived from formula 1.79 m2 Carmen Barron RN [facility], Inc.; [facility], [facility] 06-20-2013 10:34-0500 Body temperature 98 [degF] Carmen Barron RN [facility], Inc.; [facility] [employer] [facility] [place], [employer]calc. Comment on above: Method: Oral 06-20-2013 10:34-0500 Body weight 78.47 kg Carmen Barron RN [facility], Inc.; [facility] 06-20-2013 10:34-0500 Diastolic blood pressure 82 mm[Hg] Carmen Barron RN [facility], Inc.; [facility] [employer] [facility] [place], [employer]calc. Comment on above: Patient Position: Sitting; Cuff Location : Left Arm; Cuff Size: Large 06-20-2013 10:34-0500 Heart rate 73 /min Carmen Barron RN [facility], Inc.; [facility] [employer] [facility] [place], [employer]calc. Comment on above: Pattern: Regular 06-20-2013 10:34-0500 Inhaled oxygen concentration 21 % Carmen Barron RN [facility], Inc.; [facility] [employer] [facility] [place], [employer]calc. Comment on above: Room air 06-20-2013 10:34-0500 SaO2% (BldA) [Mass fraction] 98 % Carmen Barron RN [facility], Inc.; [facility], [employer]calc. 06-20-2013 10:34-0500 Systolic blood pressure 132 mm[Hg] Carmen Barron RN [facility] [employer] [facility] [employer].; [employer] [facility] [employer] [facility] [place], [employer]calc. Comment on above: Patient Position: Sitting; Cuff Location : Left Arm; Cuff Size: Large 11-01-2012 10:44-0400 Body height 156.21 cm Alisa Mcmanus RN [facility], Inc.; [facility] [employer] [facility] [place], [facility]. 11-01-2012 10:44-0400 Body mass index (BMI) [Ratio] 31.41 kg/m2 Alisa Mcmanus RN [facility], Inc.; [facility] [employer] [facility] [place], [facility]. 11-01-2012 10:44-0400 Body surface area Derived from formula 1.77 m2 Alisa Mcmanus RN [facility] [employer] [facility] [place], youcalc. 11-01-2012 10:44-0400 Body temperature 98.2 [degF] Alisa Mcmanus RN [facility] [employer] [facility] [place], [facility].; [employer] [facility] [employer], [employer]. Comment on above: Method: Oral 11-01-2012 10:44-0400 Body weight 76.66 kg Alisa Mcmanus RN [facility] [employer] [facility] [place], youcalc.; [facility] [employer] [facility] [place], [facility]. 11-01-2012 10:44-0400 Diastolic blood pressure 86 mm[Hg] Alisa Mcmanus RN [facility] [employer] [facility] [place], [facility].; [facility] [employer] [facility] [place], [employer]calc. Comment on above: Patient Position: Sitting; Cuff Location : Left Arm; Cuff Size: Standard 11-01-2012 10:44-0400 Heart rate 67 /min Alisa Mcmanus RN [facility] [employer] [facility] [place], [facility].; [employer] [facility] [employer], [employer]. Comment on above: Pattern: Regular 11-01-2012 10:44-0400 Systolic blood pressure 126 mm[Hg] Alisa Mcmanus RN [facility] [employer] [facility] [place], [facility].; [employer] [facility] [employer], [employer]. Comment on above: Patient Position: Sitting; Cuff Location : Left Arm; Cuff Size: Standard 10-06-2011 10:32-0400 Body temperature 98.7 [degF] Alisa Mcmanus RN [facility] [employer] [facility] [place], [facility].; [employer] [facility] [employer] [facility] [place], [facility]. Comment on above: Method: Oral 10-06-2011 10:32-0400 Body weight 76.66 kg Alisa Mcmanus RN [facility], Inc.; [facility] [employer] [facility] [place], [facility]. 10-06-2011 10:32-0400 Diastolic blood pressure 90 mm[Hg] Alisa Mcmanus RN [facility], Inc.; [facility] [employer] [facility] [place], [facility]. Comment on above: Patient Position: Sitting; Cuff Location : Left Arm; Cuff Size: Standard 10-06-2011 10:32-0400 Heart rate 73 /min Alisa Mcmanus RN [facility], Inc.; [facility] [employer] [facility] [place]. Comment on above: Pattern: Regular 10-06-2011 10:32-0400 Systolic blood pressure 130 mm[Hg] Alisa Mcmanus RN [facility] [employer] [facility] [facility] [employer] [facility] [place], [facility]. Comment on above: Patient Position: Sitting; Cuff Location : Left Arm; Cuff Size: Standard 09-15-2010 14:46-0400 Body weight 78.02 kg NELLY OAKES [facility] [employer] [facility] [employer] [facility] [employer] [facility] [place], [facility]. 09-15-2010 14:46-0400 Diastolic blood pressure 83 mm[Hg] NELLY OAKES [facility] [employer] [facility] [employer] [facility] [employer] [facility] [place], [facility]. Comment on above: Patient Position: Sitting; Cuff Location : Left Arm; Cuff Size: Standard 09-15-2010 14:46-0400 Heart rate 69 /min NELLY OAKES [facility] [employer] [facility] [place], [facility].; [employer] [facility] [employer] [facility] [place], Inc. Comment on above: Pattern: Regular 09-15-2010 14:46-0400 Systolic blood pressure 126 mm[Hg] NELLY OAKES [facility] [employer] [facility] [employer].; [employer] [facility] [facility] [employer] Comment on above: Patient Position: Sitting; Cuff Location : Left Arm; Cuff Size: Standard Encounters Encounter Date Encounter Type Care Provider Facility Start: 11-22-2024 End: 11-22-2024 Historical Summary NORMA MCMANUS MD Work Phone: [facility] [employer] [facility] Start: 11-21-2024 End: 11-21-2024 Patient encounter procedure Radha Morales VIOLIN REPAIRER-C -[facility] Work Phone: Start: 11-21-2024 End: 11-21-2024 ambulatory No Primary Care Physician -[facility] Start: 11-21-2024 End: 11-21-2024 ambulatory Norma Mcmanus Facility:[facility] Start: 10-24-2024 End: 10-24-2024 Patient encounter procedure Radha Morales VIOLIN REPAIRER-C -[facility] Work Phone: Start: 10-24-2024 End: 10-24-2024 ambulatory No Primary Care Physician -[facility] Start: 10-24-2024 End: 10-24-[address] [facility] Facility:[facility] Start: 09-17-2024 End: 09-17-2024 ambulatory No Primary Care Physician [facility] Work Phone: Start: 09-17-2024 End: 09-17-2024 Patient encounter procedure Radha Morales NP-C -[facility] Work Phone: Start: 09-17-2024 End: 09-17-2024 Patient encounter procedure Radha Morales NP-C -[facility] Work Phone: Start: 09-17-2024 End: 09-17-2024 ambulatory No Primary Care Physician [facility] Work Phone: Start: 09-17-2024 End: 09-17-2024 ambulatory Radhajohn Emanuel Facility:[facility] Start: 08-16-2024 Review NORMA Thomas MD Work Phone: [employer]. Start: 08-16-2024 End: 08-16-2024 Patient encounter procedure NORMA MCMANUS MD Work Phone: [facility] [employer]. Start: 06-05-2024 End: 06-05-2024 Historical Summary NORMA MCMANUS MD Work Phone: [facility] [employer]. Start: 05-20-2024 End: 05-20-2024 Results Review NORMA MCMANUS MD [facility]: [facility] [employer] Start: 04-19-2024 End: 04-19-2024 Patient encounter procedure NORMA MCMANUS MD Work Phone: [employer]. Start: 04-19-2024 Review NORMA Thomas MD Work Phone: [employer] Start: 03-18-2024 End: 03-18-2024 Office outpatient new 45 minutes Amarjit Galarza MD Work Phone: [facility] Comment on above: Preoperative cardiov ascular examination (Primary Dx); Abnormal EKG Start: 03-18-2024 End: 03-18-2024 Patient encounter status Amarjit Galarza MD Work Phone: [facility] Work Phone: Start: 03-18-2024 End: 03-18-2024 ambulatory AMARJIT R [facility] Start: 03-18-2024 End: 03-18-2024 Encounter for preprocedural cardiovascular examination [facility] Start: 03-18-2024 Encounter for preprocedural cardiovascular examination [facility] Start: 08-16-2023 End: 08-16-2023 ambulatory ESSIE [facility] Start: 08-04-2023 End: 08-04-2023 Office outpatient visit 10 minutes JUICE CORRALES DATA MINING ANALYST-C Work Phone: [employer] [facility] Start: 05-12-2023 End: 05-12-2023 Results Review JUICE CORRALES DATA MINING ANALYST-C Work Phone: [employer] [facility] [employer] [facility] Start: 05-11-2023 End: 05-11-2023 ambulatory JUICE CORRALES [facility] Start: 05-11-2023 Review JUICE MORGAN DATA MINING ANALYST-C [facility]: [facility] Start: 05-11-2023 End: 05-11-2023 Procedure Order JUICE MAURICEER DATA MINING ANALYST-C Work Phone: [facility] [employer] [facility]. Start: 05-01-2023 End: 05-01-2023 Follow-up encounter JUICE CORRALES DATA MINING ANALYST-C Work Phone: [facility] Start: 04-29-2023 End: 04-29-2023 ambulatory JUICE ALVARADO [facility] Start: 04-28-2023 End: 04-28-2023 Office outpatient visit 10 minutes JUICE CORRALES DATA MINING ANALYST-C Work Phone: [facility] Start: 12-05-2022 End: 12-05-2022 Results Review JUICE CORRALES DATA MINING ANALYST-C Work Phone: [facility] Start: 12-05-2022 End: 12-05-2022 ambulatory JUICE ALVARADO [facility] Start: 12-01-2022 End: 12-01-2022 Office outpatient visit 10 minutes JUICE MAURICELESLY DATA MINING ANALYST-C Work [facility]: [facility] Start: 10-28-2022 End: 10-28-2022 ambulatory ZHOU FERNANDES [facility] Start: 10-28-2022 End: 10-28-2022 Office outpatient visit 10 minutes JUICE CORRALES DATA MINING ANALYST-C Work Phone: [facility] Start: 07-29-2022 End: 07-29-2022 Office outpatient visit 10 minutes JUICE MAURICELESLY DATA MINING ANALYST-C Work Phone: [facility] Start: 04-20-2022 End: 04-20-2022 Office outpatient visit 10 minutes JUICE MAURICEER DATA MINING ANALYST-C Work Phone: [employer] [facility] [employer] [facility] Start: 10-21-2021 End: 10-21-2021 Follow-up encounter JUICE MAURICEER DATA MINING ANALYST-C Work Phone: [facility] Start: 10-20-2021 End: 10-20-2021 Office outpatient visit 10 minutes JUICE MAURICEER DATA MINING ANALYST-C Work Phone: [employer] [facility] [employer] [facility] Start: 06-29-2021 End: 06-29-2021 Historical Summary JUCIE MORSETTER DATA MINING ANALYST-C Work Phone: [employer] [facility] [employer] [facility] Start: 03-19-2021 End: 03-19-2021 Medication Refill/Order JUICE MORSETTER DATA MINING ANALYST-C Work Phone: [facility] [facility] [employer] Start: 03-19-2021 End: 03-19-2021 Office outpatient visit 10 minutes JUICE MAURICEER DATA MINING ANALYST-C Work Phone: [employer] [facility] Start: 10-28-2020 End: 10-28-2020 Office outpatient visit 10 minutes JUICE MORSETTER DATA MINING ANALYST-C Work Phone: [employer] [facility] Start: 05-14-2020 End: 05-14-2020 Results Review JUICE NYETETTER DATA MINING ANALYST-C Work Phone: [employer] [facility] [employer] Start: 05-08-2020 End: 05-08-2020 Results Review JUICE HOFSTETTER DATA MINING ANALYST-C Work Phone: [employer] [facility] [employer] [facility] Start: 05-07-2020 End: 05-07-2020 Office outpatient visit 15 minutes JUICE CORRALES DATA MINING ANALYST-C Work Phone: [employer] [facility] [employer]. Start: 11-04-2019 End: 11-04-2019 Nutrition therapy JUICE CORRALES DATA MINING ANALYST-C Work Phone: [employer] [facility] [employer]. Start: 10-31-2019 End: 10-31-2019 Office outpatient visit 10 minutes JUICE CORRALES DATA MINING ANALYST-C Work Phone: [employer] [facility] [employer]. Start: 05-02-2019 End: 05-02-2019 Office outpatient visit 10 minutes JUICE CORRALES DATA MINING ANALYST-C Work Phone: [employer] [facility] [employer] Start: 03-20-2019 End: 03-20-2019 Medication Refill/Order JUICE CORRALES DATA MINING ANALYST-C Work Phone: [employer] [facility] [employer] Start: 10-30-2018 End: 10-30-2018 Follow-up encounter JUICE CORRALES DATA MINING ANALYST-C Work Phone: [employer] [facility] [employer] Start: 10-25-2018 End: 10-25-2018 Office outpatient visit 15 minutes JUICE CORRALES DATA MINING ANALYST-C Work Phone: [employer] [facility] [employer] Start: 07-25-2018 End: 07-25-2018 Medication Refill/Order JUICE CORRALES DATA MINING ANALYST-C Work Phone: [employer] [facility] [employer] Start: 04-26-2018 End: 04-26-2018 Office outpatient visit 15 minutes JUICE CORRALES DATA MINING ANALYST-C Work Phone: [employer] [facility] [employer]. Start: 04-26-2018 End: 04-26-2018 Physical examination JUICE CORRALES DATA MINING ANALYST-C Work Phone: [employer]; [employer] Start: 02-22-2018 End: 02-22-2018 Medication Refill/Order JUICE MAURICEER DATA MINING ANALYST-C Work Phone: [employer] [facility] [employer]. Start: 01-26-2018 End: 01-26-2018 Medication Refill/Order JUICE MAURICEER DATA MINING ANALYST-C Work Phone: [employer] [facility] [employer]. Start: 11-01-2017 End: 11-01-2017 Nutrition therapy JUICE HODALIAER DATA MINING ANALYST-C Work Phone: [employer] [facility] [employer]. Start: 10-26-2017 End: 10-26-2017 Office outpatient visit 15 minutes JUICE MAURICEER DATA MINING ANALYST-C Work Phone: [employer] [facility] [employer]. Start: 09-21-2017 End: 09-21-2017 Medication Refill/Order JUICE MAURICEER DATA MINING ANALYST-C Work Phone: [employer] [facility] [employer]. Start: 04-30-2017 End: 04-30-2017 Results Review JUICE MAURICEER DATA MINING ANALYST-C Work Phone: [employer]. Start: 04-27-2017 End: 04-27-2017 Historical Summary JUICE MAURICEER DATA MINING ANALYST-C Work Phone: [employer] [facility] [employer]. Start: 04-27-2017 End: 04-27-2017 Office outpatient visit 10 minutes JUICE MAURICEER DATA MINING ANALYST-C Work Phone: [employer]. Start: 02-20-2017 End: 02-20-2017 Historical Summary JUICE MAURICEER DATA MINING ANALYST-C Work Phone: [employer] [facility] [employer]. Start: 11-01-2016 End: 11-01-2016 Results Review JUICE MAURICEER DATA MINING ANALYST-C Work Phone: [employer]. Start: 10-27-2016 End: 10-27-2016 Office outpatient visit 15 minutes JUICE CORRALES DATA MINING ANALYST-C Work Phone: [employer]. Start: 05-05-2016 End: 05-05-2016 Office outpatient visit 15 minutes JUICE CORRALES DATA MINING ANALYST-C Work Phone: [employer]. Start: 11-09-2015 End: 11-09-2015 Results Review JUICE MAURICEER DATA MINING ANALYST-C Work Phone: [employer]. Start: 11-05-2015 End: 11-05-2015 Office outpatient visit 15 minutes JUICE CORRALES DATA MINING ANALYST-C Work Phone: [employer]. Start: 05-14-2015 End: 05-14-2015 Office outpatient visit 10 minutes JUICE CORRALES DATA MINING ANALYST-C Work Phone: [employer]. Start: 11-17-2014 End: 11-17-2014 Follow-up encounter JUICE MAURICEER DATA MINING ANALYST-C Work Phone: [employer]. Start: 11-13-2014 End: 11-13-2014 Office outpatient visit 10 minutes JUICE CORRALES DATA MINING ANALYST-C Work Phone: [employer]. Start: 05-15-2014 End: 05-15-2014 Office outpatient visit 10 minutes JUICE CORRALES DATA MINING ANALYST-C Work Phone: [employer]. Start: 01-03-2014 End: 01-03-2014 Injection/immunization only JUICE CORRALES DATA MINING ANALYST-C Work Phone: [employer]. Start: 11-18-2013 End: 11-18-2013 Follow-up encounter JUICE CORRALES DATA MINING ANALYST-C Work Phone: [employer] Start: 11-14-2013 End: 11-14-2013 Patient encounter procedure JUICE CORRALES DATA MINING ANALYST-C Work Phone: [facility]. Start: 06-20-2013 End: 06-20-2013 Patient encounter procedure JUICE CORRALES DATA MINING ANALYST-C Work Phone: [facility] Start: 01-07-2013 End: 01-07-2013 Results Review JUICE CORRALES DATA MINING ANALYST-C Work [facility]: [facility] Start: 11-01-2012 End: 11-01-2012 Follow-up encounter JUICE CORRALES DATA MINING ANALYST-C Work Phone: [facility] Start: 11-01-2012 End: 11-01-2012 Patient encounter procedure JUICE CORRALES DATA MINING ANALYST-C Work Phone: [facility] Start: 10-06-2011 End: 10-06-2011 Patient encounter procedure JUICE CORRALES DATA MINING ANALYST-C Work Phone: [facility]. Start: 07-14-2011 End: 07-14-2011 Medication Refill/Order JUICE CORRALES DATA MINING ANALYST-C Work Phone: [facility] Start: 09-15-2010 End: 09-15-2010 Patient encounter procedure JUICE CORRALES DATA MINING ANALYST-C Work Phone: [facility]. Start: 09-09-2010 End: 09-09-2010 Medication Refill/Order JUICE CORRALES DATA MINING ANALYST-C Work Phone: [facility]. Start: 09-08-2010 End: 09-08-2010 Medication Refill/Order JUICE CORRALES DATA MINING ANALYST-C Work Phone: [facility] Start: 05-10-2010 End: 05-10-2010 Medication Refill/Order JUICE CORRALES DATA MINING ANALYST-C Work Phone: [facility] Start: 03-10-2010 End: 03-12-2010 Medication Refill/Order JUICE CORRALES DATA MINING ANALYST-C Work Phone: [facility] Start: 03-10-2010 End: 03-10-2010 Historical Summary JUICE CORRALES DATA MINING ANALYST-C Work Phone: [employer] [facility] Start: 08-26-2009 End: 08-26-2009 Historical Summary JUICE CORRALES DATA MINING ANALYST-C Work Phone: [employer] [facility] Procedures Date Procedure Procedure Detail Performing Clinician Start: 09-17-2024 CT of head without contrast No Primary Care Physician Start: 04-19-2024 End: 04-19-2024 Collj & interpj physiol data min 30 min ea 30 d NORMA MCMANUS MD Work Phone: Start: 03-17-2024 End: 03-17-2024 R knee replaced R SLIME QUINN MD Work Phone: Start: 08-04-2023 End: 08-04-2023 Dischrg meds reconciled w/current med list JUICE CORRALES DATA MINING ANALYST-C Work Phone: Start: 05-12-2023 End: 05-12-2023 Radiologic exam chest 2 views JUICE Kilpatrick NICOEDENCATHY DATA MINING ANALYST-C Work Phone: Start: 04-28-2023 End: 04-28-2023 Collj & interpj physiol data min 30 min ea 30 d JUICE Kilpatrick NICOJOSEFINA DATA MINING ANALYST-C Work Phone: Start: 12-05-2022 End: 12-05-2022 Dup-scan xtr veins unilateral/limited study JUICE CORRALES DATA MINING ANALYST-C Work Phone: Comment on above: R Start: 10-28-2022 End: 10-28-2022 Collj & interpj physiol data min 30 min ea 30 d JUICE CORRALES DATA MINING ANALYST-C Work Phone: Start: 07-29-2022 End: 07-29-2022 Collj & interpj physiol data min 30 min ea 30 d JUICE CORRALES DATA MINING ANALYST-C Work Phone: Start: 07-06-2022 End: 07-06-2022 Screening colonoscopy JUICE MAURICE ER DATA MINING ANALYST-C Work Phone: Comment on above: several polyps per L mike Millerpolyps x 2 2021h/o melanosis coli with multiple polyps Start: 04-20-2022 End: 04-20-2022 Dischrg meds reconciled w/current med list JUICE CORRALES DATA MINING ANALYST-C Work Phone: Start: 04-20-2022 End: 04-20-2022 Collj & interpj physiol data min 30 min ea 30 d JUICE MAURICEER DATA MINING ANALYST-C Work Phone: Start: 10-20-2021 End: 10-20-2021 Dischrg meds reconciled w/current med list JUICE CORRALES DATA MINING ANALYST-C Work Phone: Start: 10-20-2021 End: 10-20-2021 Collj & interpj physiol data min 30 min ea 30 d JUICE CORRALES DATA MINING ANALYST-C Work Phone: Start: 06-25-2021 End: 06-25-2021 Inguinal hernia repair JUICE ARORA TER DATA MINING ANALYST-C Work Phone: Comment on above: Right. Essie Oakes Start: 03-19-2021 End: 03-19-2021 Collj & interpj physiol data min 30 min ea 30 d JUICE CORRALES DATA MINING ANALYST-C Work Phone: Start: 10-28-2020 End: 10-28-2020 Dischrg meds reconciled w/current med list JUICE CORRALES DATA MINING ANALYST-C Work Phone: Start: 10-28-2020 End: 10-28-2020 Urinary Incontinence JUICE GOLDBERG R DATA MINING ANALYST-C Work Phone: Comment on above: Negative. Start: 10-28-2020 End: 10-28-2020 Collj & interpj physiol data min 30 min ea 30 d JUICE CORRALES DATA MINING ANALYST-C Work Phone: Start: 05-07-2020 End: 05-07-2020 Dischrg meds reconciled w/current med list ZHOU FERNANDES MD Work Phone: Start: 05-07-2020 End: 05-07-2020 Collj & interpj physiol data min 30 min ea 30 d ZHOU FERNANDES MD Work Phone: Start: 10-31-2019 End: 10-31-2019 Dischrg meds reconciled w/current med list ZHOU FERNANDES MD Work Phone: Start: 10-31-2019 End: 10-31-2019 Collj & interpj physiol data min 30 min ea 30 d ZHOU FERNANDES MD Work Phone: Start: 05-02-2019 End: 05-02-2019 Dischrg meds reconciled w/current med list ZHOU FERNANDES MD Work Phone: Start: 10-25-2018 End: 10-25-2018 Collj & interpj physiol data min 30 min ea 30 d SLIME FERNANDES MD Work Phone: Start: 04-26-2018 End: 04-26-2018 Dischrg meds reconciled w/current med list SLIME FERNANDES MD Work Phone: Start: 04-26-2018 End: 04-26-2018 Collj & interpj physiol data min 30 min ea 30 d SLIME FERNANDES MD Work Phone: Start: 10-26-2017 End: 10-26-2017 Collj & interpj physiol data min 30 min ea 30 d SLIME FERNANDES MD Work Phone: Start: 09-21-2017 End: 09-21-2017 Collj & interpj physiol data min 30 min ea 30 d SLIME FERNANDES MD Work Phone: Start: 04-27-2017 End: 04-27-2017 Collj & interpj physiol data min 30 min ea 30 d SLIME FERNANDES MD Work Phone: Start: 03-03-2017 End: 03-03-2017 Repair of inguinal hernia JUICE BANDA DATA MINING ANALYST-C Work Phone: Comment on above: Essie Oakes Start: 02-15-2017 End: 02-15-2017 Screening colonoscopy Alisa Mcmanus RN Comment on above: Tubular adenoma, cec um; Essie Oakes Start: 10-27-2016 End: 10-27-2016 Fall Risk Assessment JUICE Moffett DATA MINING ANALYST-C Work Phone: Start: 10-27-2016 End: 10-27-2016 Collj & interpj physiol data min 30 min ea 30 d SLIME FERNANDES MD Work Phone: Start: 10-27-2016 End: 10-27-2016 Falls risk assessment documented SLIME FERNANDES MD Work Phone: Start: 11-14-2013 End: 11-15-2013 Collj & interpj physiol data min 30 min ea 30 d SLIME FERNANDES MD Work Phone: Start: 06-20-2013 End: 06-20-2013 Ceftriaxone sodium injection J GERMAN OAKES MD Work Phone: Start: 10-05-2006 End: 10-05-2006 Td JUICE CORRALES DATA MINING ANALYST-C Work Phone: [facility] [place] Comment on above: 11/14/13 Screening mammography PRINCE CORRALES DATA MINING ANALYST-C Work Phone: Comment on above: Discussed. 1/4/2023L eft unilateral, NL- 01/02/13 Screening mammography PRINCE Kilpatrick POPEYEOGLESLY DATA MINING ANALYST-C Work Phone: Comment on above: Discussed. 04/20/2022L eft unilateral, NL- 01/02/13 Screening mammography Manpreet Mcmanus RN Comment on above: Discussed. 04/20/2022L eft unilateral, NL- 01/02/13 TDAP - Adacel/Boostrix Maggi Mcmanus RN Comment on above: Discussed. 04/19/2024 Plan of Treatment Date Care Activity Detail Author Start: 03-14-2025 Patient encounter procedure Medical; BLOOD PRESSURE CHECK - [employer] Start: 14-Mar-2025 09:15-05:00 MD NORMA MCMANUS Appointment Request [employer] Start: 2025 RSV High Risk: (Elde rly (60+) or Population) (1 - 1-dose 75+ series) RSV High Risk: (Elderly (60+) or Population) (1 - 1-dose 75+ series) [facility] Start: 09-18-2024 Patient referral [facility] Work Phone: Start: 08-16-2024 [facility] visit, estab pt Medical; ESTABLISHED PATIENT ROUTINE VISIT - 4 month chk up [employer] Start: 16-Aug-2024 10:15-04:00 MD NORMA MCMANUS Appointment Request [employer] Start: 04-19-2024 Basic metabolic pane l calcium total BMP (74951) Start: 19-Apr-2024 08:44-05:00 Request [employer]; [employer]. Start: 12-17-2023 COVID-19 Vaccine ( season) COVID-19 Vaccine ( season) [facility] Start: 12-17-2023 Influenza vaccination Influenza Vacc ine (#1) [facility] Start: 08-04-2023 Collj & interpj phys iol data min 30 min ea 30 d QUERY OARRS REPORT ([id number]) Start: 04-Aug-2023 Intent [employer]; [employer]. Start: 08-04-2023 [facility] visit, [facility] Medical; ESTABLISHED PATIENT ROUTINE VISIT - [employer] [facility] [employer] Start: 04-Aug-2023 9:15 FREDI CORRALES Appointment Request [facility] [employer]. Start: 05-11-2023 Radiologic exam ches t 2 views CHEST XRAY, PA & LATERAL ([id number]) Start: 11-May-2023 Intent [employer] [facility] [employer]. Start: 04-28-2023 Assay of iron IRON ([id number]) S tart: 28-Apr-2023 10:36 Request [employer]. Start: 04-28-2023 Comprehensive metabo lic panel CMP - COMPREHENSIVE METABOLIC PANEL ([id number]) Start: 28-Apr-2023 10:34 Request [employer]. Start: 12-01-2022 Radex ankle complete minimum 3 views X-RAY ANKLE, 3 VIEWS ([id number]) Start: 01-Dec-2022 Intent Comments: R [employer] [facility] [employer]. Comment on above: R Start: 10-28-2022 [employer] ankle complete minimum 3 views X-RAY ANKLE, 3 VIEWS ([id number]) Start: 28-Oct-2022 Intent Comments: R [employer]. Comment on above: R Start: 10-28-2022 [employer] foot complete minimum 3 views X-RAY FOOT - COMPLETE - 3 VIEWS ([id number]) Start: 28-Oct-2022 Intent Comments: R [employer]. Comment on above: R Start: 05-07-2020 Radiologic examinati on pelvis 1/2 views XR PELVIS AND RIGHT HIP, AP AND LATERAL FROG VIEWS ([id number]) Start: 07-May-2020 Intent [employer]; [employer] Work Phone: Start: 10-26-2018 Pneumococcal Vaccine : 65+ Years (2 of 2 - PPSV23 or PCV20) Pneumococcal Vaccine: 65+ Years (2 of 2 - PPSV23 or PCV20) [facility] Start: 04-26-2018 Patient Education INSOMNIA Ind ication: Chronic insomnia Start: 26-Apr-2018 Instruction Type: Patient Education [employer]; [employer]. Start: 04-26-2018 End: 04-26-2018 Falls risk assessment documented FALL RISK ASSESSMENT ([id number]) Date: 26-Apr-2018 [employer]; [employer]. Start: 10-26-2017 Im adm prq id subq/i m njxs ea vaccine IMMUNIZATION ADMIN EACH ADD ([id number]) Start: 26-Oct-2017 [facility] [employer]; [employer]. Start: 10-26-2017 Patient Education [employer] Start: 10-27-2016 Patient Education ANXIETY Maria T cation: Anxiety Start: 27-Oct-2016 Instruction Type: Patient Education [employer]; [employer]. Start: 05-05-2016 Patient Education ANXIETY Maria T cation: Anxiety Start: 05-May-2016 Instruction Type: Patient Education [employer]; [employer]. Start: 11-05-2015 Patient Education ANXIETY Maria T cation: Anxiety Start: 05-Nov-2015 Instruction Type: Patient Education [employer] Start: 11-06-2012 End: 11-06-2012 Collj & interpj physiol data min 30 min ea 30 d QUERY OARRS REPORT ([id number]) Date: 06-Nov-2012 [employer]; [employer] Start: 10-06-2011 Collj & interpj phys iol data min 30 min ea 30 d QUERY OARRS REPORT ([id number]) Start: 06-Oct-2011 Intent [employer] [facility] Start: 10-06-2006 DTaP/Tdap/Td Vaccine s (1 - Tdap) DTaP/Tdap/Td Vaccines (1 - Tdap) [facility] Start: 02-26-2000 Zoster Vaccines (1 of 2) Zoste r Vaccines (1 of 2) [facility] Start: 1990 Screening for malign ant neoplasm of breast Mammogram [facility] Start: 02-26-1968 Hepatitis C screening Hepatitis C Sc reening [facility] Start: 1950 Lipid panel Lipid Panel [facility] Start: 1950 Screening for malign ant neoplasm of colon [facility] Start: 1950 Screening for osteoporosis Bone Density Scan [facility] Start: 1950 Yearly Adult Physical Yearly Adult P hysical [facility] Blood ammonia measurement [facility] C reactive protein [Mass/volume] in Serum or Plasma [facility] [place] CBC W Auto Different ial panel - Blood [facility] [place] Comprehensive metabo lic 2000 panel - Serum or Plasma [facility] [place] CT Unspecified body region WO contrast [facility] [place] Erythrocyte sedimentation rate [facility] [place] Iron [Mass/mass] in Unspecified specimen [facility] [place] Magnesium measurement [facility] Patient referral [facility] Work Phone: Thyroid stimulating hormone measurement [facility] [place] Topiramate [Mass/vol ume] in Serum or Plasma [facility] [place] Topiramate [Mass/vol ume] in Serum or Plasma [facility] [place] Immunizations Immunization Date Immunization Notes Care Provider Omayra del real 10-26-2017 *IMMUNIZATION ADMIN ([id number]) JUICE ALEXANDERP-C Work Phone: [employer] [facility] [employer] [facility]. 10-26-2017 pneumococcal conjuga te vaccine, 13 valent JUICE CORRALES DATA MINING ANALYST-C Work Phone: [facility].; [employer] [facility]. Comment on above: Site: Left DeltoidVI S Given: * Multiple Vaccines (DTaP, Hib, Hepatitis B, Polio, and PCV13) (02/19/15) 01-03-2014 pneumococcal Conjuga te, unspecified formulation JUICE NYETEKRYSTAER DATA MINING ANALYST-C Work Phone: [facility]; [facility] Comment on above: & 11/21/2006 01-03-2014 IMMUNIZATION ADMIN ([id number]) JUICE CORRALES DATA MINING ANALYST-C Work Phone: [facility]; [facility] 01-03-2014 pneumococcal polysaccharide vaccine, 23 valent JUICE NYETETTER DATA MINING ANALYST-C Work Phone: [facility]; [employer] [facility] Comment on above: Site: Gluteus (Right )okay per Dr Oakes 11-21-2006 pneumococcal polysaccharide vaccine, 23 valent JUICE NYETETTER DATA MINING ANALYST-C Work Phone: [facility]; [employer] [facility] 10-05-2006 tetanus and diphther ia toxoids, adsorbed, preservative free, for adult use (2 Lf of tetanus toxoid and 2 Lf of diphtheria toxoid) JUICE CORRALES DATA MINING ANALYST-C Work Phone: [facility] [employer] [facility]; [employer] [facility]. influenza virus vacc ine, unspecified formulation NORMA MCMANUS MD Work Phone: [facility]; [employer] [facility]. Comment on above: Refused. 04/19/2024 Payers Date Payer Category Payer Self-pay 2024 Unknown [id number] 2024 Unknown 2024 Unknown [id number] 2022 [employer] [facility] [address] [place] [address] [id number] 2022 Unknown [id number] 1950 Unknown [id number] 51 1950 Unknown [id number] 51 1950 Unknown [id number] 51 1950 Unknown [id number] 51 1950 Unknown [id number] 242 Unknown [id number] 62 Unknown [id number] 62 Unknown [id number] [id number] 62 Unknown [id number] 62 Unknown [id number] 62 Unknown [id number] 62 Social History Date Type Detail Facility Alcohol Use: Alcohol Use: ; N o Alcohol Use. [facility] Current Work/Study Status Current Work/Study Status [facility] Tobacco use: Tobacco use: ; N ever smoker. [facility].; [facility]. Start: 1950 Female [facility] Start: 03-18-2024 End: 09-17-2024 Never smoked tobacco [facility].; [facility] Work Phone: Start: 03-18-2024 Tobacco use and exposure Smokeless tobacco non-user [facility] Work Phone: Start: 1950 Sex assigned at Not on file [facility] Work Phone: Gender identity Not on file [facility] Work Phone: Start: 03-08-2024 End: 03-18-2024 Exposure to SARS-CoV-2 (event) Not sure [facility] Radiology Diagnostic study note 09-17-2024 Note Date & Type Note Facility 09-17-2024 Radiology Diagnostic study note [facility] Imaging Services [address] [place] [address] [id number] Brain/Head without Contrast MR#: [id number] Acct: [id number] Name: LILY GUILLERMO Rep #: [id number] : 1950 F 74 From: Lino Conway MD PCP: Care Physician,No Primary Status: REG CLI Study:Brain/Head without Contrast Date of Exa m: 09/17/24 Exam# [id number] Ordering Dr: Radha Morales VIOLIN REPAIRER-C PROCEDURE: BRAIN/HEAD WITHOUT CONTRAST 09/17/2024 REASON FOR EXAM: HX OF TUMOR REMOVAL / DIRECTOR OF PURCHASING SHUNT (1970), HEADACHES TECHNIQUE: Head CT without intravenous contrast. Coronal and Sagittal reconstruction serieswere provided. One or more dose reduction techniques were used (e.g., Automated exposure control, adjustment of the mA and/or kV according to patient size, use of iterative reconstruction technique. RADIATION DOSE SUMMARY: CTDlvol: 44.99 mGy DLP: 829.85 mGycm COMPARISON: None provided. FINDINGS: This evaluation is significantly limited by lack of a prior comparison study. Brain: Prior right craniotomy site noted. Areas of frontotemporal white matter hypodensity are consistent with postsurgical changes and gliosis. A right shunt tube is in place, with tip at or near the 3rd ventricle. No significant 3rd and lateral ventricular enlargement is seen. No sulcal effacement is evident. No extra-axial fluid collection is seen. No intracranial hemorrhage is noted Sinuses/Mastoids: Clear at visualized levels Bones: No acute osseous process is seen CT/Brain/Head without Contrast IMPRESSION: 1. No intracranial hemorrhage or other acute process is noted. 2. No ventriculomegaly is seen. 3. No extra-axial fluid collection is noted. 4. Shunt tube in place, with tip at or near the 3rd ventricle. Reading Location: [id number] CC: FRANSISCO Morales; No Primary Care Physician ~ Housekeeper Cleaning Cooking: Signed [facility] Evaluation note 09-17-2024 Note Date & Type Note Facility 09-17-2024 Evaluation note Diagnosis Onset Date Resolution Cognitive impairment acute September 17, 2024 9:35am Esotropia of left eye acute Sep 9:35am History of seizures acute September 17, 2024 9:35am Worsening headaches acute September 17, 2024 9:35am History of benign brain tumor chronic September 17, 2024 9 :35am [facility] Work Phone: Evaluation note 09-17-2024 Note Date & Type Note Facility 09-17-2024 Evaluation note Diagnosis Onset Date Resolution Cognitive impairment acute September 17, 2024 9:35am Esotropia of left eye acute Sep 9:35am History of seizures acute September 17, 2024 9:35am Worsening headaches acute September 17, 2024 9:35am History of benign brain tumor chronic September 17, 2024 9 :35am Cognitive impairment acute October 24, 2024 8:33am Esotropia of left eye acute Oct 8:33am History of seizures acute October 24, 2024 8:33am Worsening headaches acute October 24, 2024 8:33am History of benign brain tumor chronic October 24, 2024 8:33am [facility] Work Phone: Evaluation note 09-17-2024 Note Date & Type Note Facility 09-17-2024 Evaluation note Diagnosis Onset Date Resolution Cognitive impairment acute September 17, 2024 9:35am History of seizures acute September 17, 2024 9:35am Worsening headaches acute September 17, 2024 9:35am Esotropia of left eye chronic Sep 9:35am History of benign brain tumor chronic September 17, 2024 9 :35am Cognitive impairment acute October 24, 2024 8:33am History of seizures acute October 24, 2024 8:33am Worsening headaches acute October 24, 2024 8:33am Esotropia of left eye chronic Oct 8:33am History of benign brain tumor chronic October 24, 2024 8:33am [facility] Work Phone: Evaluation note 09-17-2024 Note Date & Type Note Facility 09-17-2024 Evaluation note Diagnosis Onset Date Resolution Cognitive impairment acute September 17, 2024 9:35am History of seizures acute September 17, 2024 9:35am Worsening headaches acute September 17, 2024 9:35am Esotropia of left eye chronic Sep 9:35am History of benign brain tumor chronic September 17, 2024 9 :35am Cognitive impairment acute October 24, 2024 8:33am History of seizures acute October 24, 2024 8:33am Worsening headaches acute October 24, 2024 8:33am Esotropia of left eye chronic Oct 8:33am History of benign brain tumor chronic October 24, 2024 8:33am Cognitive impairment acute Novu st 2024 8:56am History of seizures acute Augus t 2024 8:56am Worsening headaches acute Novus t 2024 8:56am Esotropia of left eye chronic Nov us2024 8:56am History of benign brain tumor chronic November 21, 2024 8:56am [facility] Work Phone: History of Present illness Narrative 03-18-2024 Amarjit Galarza MD - 03/18/2024 9:40 AM EST Note Date & Type Note Facility 03-18-2024 History of Present illness Narrative Chief Complaint: Pre-op Clearance History of Present Illness Lily Guillermo is a 74 y.o. female presenting with pre-operative cardiac evaluation before planned right TKA. The patient has no prior history of coronary artery disease, myocardial infarction, PCI (stent), CABG, heart failure, high-grade arrhythmias, valvular heart disease, pulmonary hypertension, peripheral arterial disease, or cerebrovascular disease. The patient has no personal or family history of anesthetic complications during prior general anesthesia. The patient has no history of DVT or PE. No Hx DM,. HTN or HPL. Home BP low to normal. Based upon the patient's present history, while ambulation is limited due to joint pain, does housework, stairs, their functional capacity is greater than 4 METS. Patients ability to expend >=4 METs can be assessed by estimates from activities of daily living; activities that expend >=4 METS include the ability to climb up a flight of stairs, walk up a hill, walk at ground level at 4 miles per hour, or perform heavy work around the house. The patient denies chest pain or dyspnea on exertion. The patient has no history of obstructive sleep apnea, alcohol abuse use, or tobacco use. 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 Previous History Past Medical History: She has a past medical history of Abnormal EKG (03/18/2024) and Preoperative cardiovascular examination (03/18/2024). Past Surgical History: She has no past surgical history on file. Social History: She reports that she has never smoked. She has never used smokeless tobacco. No history on file for alcohol use and drug use. Family History: Family History Problem Relation Name Age of Onset Heart failure Mother 83 Allergies: Patient has no known allergies. Outpatient Medications: Current Outpatient Medications Medication Instructions topiramate (Topamax) 50 mg tablet TAKE ONE TABLET BY MOUTH EVERY MORNING & TWO EVERY EVENING Physical Examination Vitals: Visit Vitals BP (!) 169/95 (BP Location: Right arm, Patient Position: Sitting, BP Cuff Size: Adult) Pulse 79 Wt 83.9 kg (185 lb) Smoking Status Never Physical Exam Vitals reviewed. Constitutional: General: She is not in acute distress. Appearance: Normal appearance. HENT: Head: Normocephalic and atraumatic. Nose: Nose normal. Eyes: Conjunctiva/sclera: Conjunctivae normal. Cardiovascular: Rate and Rhythm: Normal rate and regular rhythm. Pulses: Normal pulses. Heart sounds: No murmur heard. Pulmonary: Effort: Pulmonary effort is normal. No respiratory distress. Breath sounds: Normal breath sounds. No wheezing, rhonchi or rales. Abdominal: General: Bowel sounds are normal. There is no distension. Palpations: Abdomen is soft. Tenderness: There is no abdominal tenderness. Musculoskeletal: General: No swelling. Right lower leg: No edema. Left lower leg: No edema. Skin: General: Skin is warm and dry. Capillary Refill: Capillary refill takes less than 2 seconds. Neurological: General: No focal deficit present. Mental Status: She is alert. Psychiatric: Mood and Affect: Mood normal. Labs/Imaging/Cardiac Studies Last Labs: CBC - No results found for: WBC, HGB, HCT, MCV, PLT CMP - No results found for: CALCIUM, PHOS, PROT, ALBUMIN, AST, ALT, ALKPHOS, BILITOT LIPID PANEL - No results found for: CHOL, HDL, CHHDL, LDL, VLDL, TRIG, NHDL RENAL FUNCTION PANEL - No results found for: GLU, K, CHLOR, PHOS No results found for: BNP, HGBA1C ECG:Reviewed - non-specific changes. No ischemia. Echo: No echocardiogram results found for the past 12 months Assessment and Recommendations Assessment/Plan 1. Preoperative cardiovascular examination (Primary) Based upon the above evaluation and The 2014 [place] [employer]/[place] [employer] (ACC/AHA) Guideline on Perioperative Cardiovascular Evaluation and Management for noncardiac surgery, and calculation of the Revised Cardiac Risk Index (RCRI) score=0, the patient is at low risk or an adverse cardiovascular event (ie, myocardial ischemia, myocardial infarction [GA], heart failure, arrhythmia, stroke, or cardiac ) for planned intermediate risk surgery. No further cardiac testing is advised. Stay on Topamax robyn-op. 2. Abnormal EKG Minor non-specific changes. No further evaluation required. Amarjit Galarza MD Exclusive of any other services or procedures performed, I, Amarjit Galarza MD , spent 30 minutes in duration for this visit today. This time consisted of chart review, obtaining history, and/or performing the exam as documented above as well as documenting the clinical information for the encounter in the electronic record, discussing treatment options, plans, and/or goals with patient, family, and/or caregiver, refilling medications, updating the electronic record, ordering medicines, lab work, imaging, referrals, and/or procedures as documented above and communicating with other [facility] professionals. I have discussed the results of laboratory, radiology, and cardiology studies with the patient and their family/caregiver. documented in this encounter [facility] Work Phone: Progress note 05-13-2021 Note Date & Type Note Facility 05-13-2021 Note HNO ID: [id number] Author: Floyd Nicolas DO Service: ? Author Type: Physician Type: Progress Notes Filed: 05/13/2021 11:07 AM Note Text: [facility] Department of Pulmonary AND Sleep Medicine Floyd Nicolas DO Pulmonary Consult Note - Non Smoker SERVICE DATE: 04/28/2021 SERVICE TIME: 11:39 AM REASON FOR CONSULT: Abnormal CT, surgical clearance. HISTORY OF PRESENT ILLNESS: Lily Guillermo is a 71 year old female, with a history of abnormal CT, surgical clearance. She is going to be having hernia repair right side groin area and cholecystectomy with Dr Essie Oakes. Surgery is not scheduled at this time. Did have EKG, blood work, chest xray which was abnormal so CT scan of the chest was done. She states denies any cough and shortness of breath. Ct scan of the chest images and results were viewed and discussed with patient and . She is legally blind. She has never smoked. Denies history of asthma but states she does have a history of pneumonia. No hemoptysis, chest pain, pleurisy, wasting syndrome or weight loss IBrandie CMA , transcribing for Floyd Nicolas DO. HISTORY PAST MEDICAL HISTORY Diagnosis Date - Adenomatous polyp of ascending colon - Anxiety - Brain tumor (HCC) - Chronic insomnia - Chronic insomnia - Esotropia - GERD (gastroesophageal reflux disease) - History of breast cancer - Hx of hypokalemia - Hx of seizure disorder - Irritable bowel syndrome with constipation - Legal blindness - Right hip pain - Ventral hernia without obstruction or gangrene PAST SURGICAL HISTORY Procedure Laterality Date - INGUINAL HERNIA REPAIR HX 03/03/2017 Social History Tobacco Use - Smoking status: Never Smoker - Smokeless tobacco: Never Used Substance Use Topics - Alcohol use: Not Currently - Drug use: Not Currently ALLERGIES: ALLERGIES No Known Allergies MEDICATIONS: Current Outpatient Medications Medication Sig - zolpidem (AMBIEN) 5 mg tablet TAKE ONE TABLET BY MOUTH EVERY NIGHT AT BEDTIME NEEDED - diazePAM (VALIUM) 5 mg tablet Take 5 mg by mouth at bedtime as needed. - multivit with calcium,iron,min (WOMEN'S MULTIPLE VITAMINS ORAL) Take by mouth once daily. - topiramate (TOPAMAX) 50 mg tablet Take 50 mg by mouth. One in am 2 in pm - ascorbic acid, vitamin C, (VITAMIN C) 250 mg tablet Take 250 mg by mouth once daily. - vit C/vit E ac/lut/copper/zinc (PRESERVISION LUTEIN ORAL) Take by mouth once daily. - potassium gluconate 550 mg (90 mg) tab Take by mouth once daily. No current facility-administered medications for this visit. IMMUNIZATIONS: Immunization History Administered Date(s) Administered Pneumococcal-13 Vac Conjugate 11/21/2006 01/03/2014 10/26/2017 TD Adult 10/05/2006 History reviewed. No pertinent family history. I have personally reviewed the patients past medical history including social, family, surgical, diagnostics, and medications./WS REVIEW OF SYSTEMS Review of Systems Constitutional: Negative. HENT: Negative. Eyes: Positive for visual disturbance. Respiratory: Negative. Cardiovascular: Positive for leg swelling (LYMPHEDEMA). Gastrointestinal: Negative. Endocrine: Negative. Genitourinary: Negative. Musculoskeletal: Negative. Skin: Negative. Allergic/Immunologic: Negative. Neurological: Negative. Hematological: Negative. Psychiatric/Behavioral: Negative. Vital Signs: BP 156/85 Pulse 79 Ht 5' 0 (1.52m) Wt 186 lb (84.4kg) SpO2 99[ra]% BMI 36.33 kg/(m2). PHYSICAL EXAM: Vitals: BP 156/85 Pulse 79 Ht 5' 0 (1.52m) Wt 186 lb (84.4kg) SpO2 99[ra]% BMI 36.33 kg/(m2). Const: Appears appropriate for age, well-developed, well-hydrated, well-nourished and pleasant. No signs of acute distress present and no signs of respiratory distress present. Breasts are not examined. External genitalia and rectal exams were not performed. Head/Face: Normal on inspection. Symmetric facies. Eyes: Pupils equal round and reactive to light and accommodation. Visual acuity grossly intact. MEDICAL DEVIATION OF THE LEFT EYE ENMT: External ears wnl. Tympanic membranes translucent, with good landmarks bilaterally. Nasal mucosa is pink and moist. Septum is in the midline. Inferior turbinates are normal without hypertrophy. No dental decay. Oropharynx: Appears normal. Tongue appears normal. Mallampati Score: Class IV: No oral lesions, or candidiasis. ASYMMETRIC RIGHT UVULA. ELONGATED SOFT PALATE Neck: Supple and symmetric. Palpation reveals no lymphadenopathy. Trachea midline. Thyroid is normal size. No JVD. Carotids: 2+upstroke and equal bilaterally, without bruits. Resp: AP diameter is unremarkable. Respiration rate is normal. No use of accessory muscles noted. No wheezing. Percussion is resonant and equal. Lungs are clear bilaterally. Voice resonance is clear. Chest is normal to inspection and palpation. No extranneous sounds, wheeze, r (more content not included)... [facility] Evaluation note Note Date & Type Note Facility Evaluation note Diagnosis Preoperative cardiovascular examination- Primary Pre-operative cardiovascular examination Abnormal EKG Nonspecific abnormal electrocardiogram (ECG) (EKG) documented in this encounter [facility] Work Phone: Evaluation note Note Date & Type Note Facility Evaluation note Diagnosis Onset Date Resolution History of seizures acute September 17, 2024 9:35am Worsening headaches acute September 17, 2024 9:35am History of benign brain tumor chronic September 17, 2024 9 :35am [facility] Work Phone: Reason for referral (narrative) Note Date & Type Note Facility Reason for referral (narrative) No reason for referral information available [facility] Work Phone: Summary Purpose Family History No Family History Records Found Relationship Condition Age at Onset Recorded Date/T mac mother Cardiac disease Unknown father Cardiac disease Unknown Alzheimer's disease Unknown Advance Directives No Advanced Directives Records FoundNo Advanced Directives Records FoundNo Advanced Directives Records FoundNo Advanced Directives Records FoundNo Advanced Directives Records FoundNo Advanced Directives Records FoundNo Advanced Directives Records Found Chief Complaint and Reason for Visit Chief Complaint Admit Date Consult September 17, 2024 9:35a m concern for hydrocephalus or SDH (STAT) September 17, 2024 11:40am Reason for Visit Admit Date Cognitive impairment September 17, 2024 9:35 am Esotropia of left eye September 17, 2024 9:3 5am History of seizures September 17, 2024 9:35a m Worsening headaches September 17, 2024 9:35a m History of benign brain tumor September 17, 2024 9:35am Chief Complaint Admit Date Consult September 17, 2024 9:35a m Reason for Visit Admit Date History of seizures September 17, 2024 9:35a m Worsening headaches September 17, 2024 9:35a m History of benign brain tumor September 17, 2024 9:35am Chief Complaint Admit Date Consult September 17, 2024 9:35a m concern for hydrocephalus or SDH (STAT) September 17, 2024 11:40am 1 M FU October 24, 2024 8:33 am Reason for Visit Admit Date Cognitive impairment September 17, 2024 9:35 am Esotropia of left eye September 17, 2024 9:3 5am History of seizures September 17, 2024 9:35a m Worsening headaches September 17, 2024 9:35a m History of benign brain tumor September 17, 2024 9:35am Cognitive impairment October 24, 2024 8:3 3am Esotropia of left eye October 24, 2024 8: 33am History of seizures October 24, 2024 8:33 am Worsening headaches October 24, 2024 8:33 am History of benign brain tumor October 24, 2024 8:33am Reason for Visit Admit Date Cognitive impairment September 17, 2024 9:35 am History of seizures September 17, 2024 9:35a m Worsening headaches September 17, 2024 9:35a m Esotropia of left eye September 17, 2024 9:3 5am History of benign brain tumor September 17, 2024 9:35am Cognitive impairment October 24, 2024 8:3 3am History of seizures October 24, 2024 8:33 am Worsening headaches October 24, 2024 8:33 am Esotropia of left eye October 24, 2024 8: 33am History of benign brain tumor October 24, 2024 8:33am Chief Complaint Admit Date Consult September 17, 2024 9:35a m concern for hydrocephalus or SDH (STAT) September 17, 2024 11:40am 1 M FU October 24, 2024 8:33 am 1 M FU November 21, 2024 8:5 6am Reason for Visit Admit Date Cognitive impairment September 17, 2024 9:35 am History of seizures September 17, 2024 9:35a m Worsening headaches September 17, 2024 9:35a m Esotropia of left eye September 17, 2024 9:3 5am History of benign brain tumor September 17, 2024 9:35am Cognitive impairment October 24, 2024 8:3 3am History of seizures October 24, 2024 8:33 am Worsening headaches October 24, 2024 8:33 am Esotropia of left eye October 24, 2024 8: 33am History of benign brain tumor October 24, 2024 8:33am Cognitive impairment November 21, 2024 8: 56am History of seizures November 21, 2024 8:5 6am Worsening headaches November 21, 2024 8:5 6am Esotropia of left eye November 21, 2024 8 :56am History of benign brain tumor November 8:56am Additional Source Comments INFORMATION SOURCE (unrecogn ized section and content) DATE CREATED AUTHOR 10/11/2017 [facility] [place] oundation DATE CREATED AUTHOR AUTHOR'S ORGANIZ ATION 06/22/2021 [facility] DATE CREATED AUTHOR AUTHOR'S ORGANIZ ATION 07/09/2021 [facility] DATE CREATED AUTHOR AUTHOR'S ORGANIZ ATION 08/17/2023 [facility] DATE CREATED AUTHOR AUTHOR'S ORGANIZ ATION 08/22/2023 [facility] ([place]) DATE CREATED AUTHOR AUTHOR'S ORGANIZ ATION 03/19/2024 [facility] DATE CREATED AUTHOR AUTHOR'S ORGANIZ ATION [address] [facility] Reason for Visit (unrecogniz ed section and content) Reason Comments Pre-op Clearance Specialty Diagnoses / Procedures Referred By Candi t Referred To Contact Diagnoses NO PRE-CERT REQUIRED FOR [facility] Procedures NO PRE-CERT REQUIRED FOR [facility] [place] [address] [place] [address] Phone: tel: fax: Referral ID Status Reason Start Date Expiration Date Visits Re quested Visits Authorized [id number] 1 1 Care Teams (unrecognized sec tion and content) Oncology Research Rn Relationship Specialty Start Date End Date Generic Provider, No Assigned P[place], [place] [address] 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 Team Status: Active Member Role Status Dates No Primary Care Physician Primary Care Provider Active Team Status: Inactive Member Role Status Dates No Primary Care Physician Primary Care Provider Active Start: September 17, 2024 End: September 17, 2024 No Primary Care Physician Referring Provider Active Start: September 17, 2024 End: September 17, 2024 Radha Morales VIOLIN REPAIRER-C Attending Provider Active S tart: September 17, 2024 End: September 17, 2024 Team Status: Inactive Member Role Status Dates No Primary Care Physician Primary Care Provider Active Start: September 17, 2024 End: September 17, 2024 Radha Morales VIOLIN REPAIRER-C Attending Provider Active S tart: September 17, 2024 End: September 17, 2024 Radha Morales VIOLIN REPAIRER-C Referring Provider Active S tart: September 17, 2024 End: September 17, 2024 Team Status: Active Member Role/Relationship Status Dates No Primary Care Physician Primary Care Provider Active Team Status: Inactive Member Role/Relationship Status Dates No Primary Care Physician Primary Care Provider Active Start: September 17, 2024 End: September 17, 2024 No Primary Care Physician Referring Provider Active Start: September 17, 2024 End: September 17, 2024 Radha Morales VIOLIN REPAIRER-C Attending Provider Active S tart: September 17, 2024 End: September 17, 2024 Team Status: Inactive Member Role/Relationship Status Dates No Primary Care Physician Primary Care Provider Active Start: September 17, 2024 End: September 17, 2024 Radha Morales VIOLIN REPAIRER-C Attending Provider Active S tart: September 17, 2024 End: September 17, 2024 Radha Morales VIOLIN REPAIRER-C Referring Provider Active S tart: September 17, 2024 End: September 17, 2024 Team Status: Inactive Member Role/Relationship Status Dates No Primary Care Physician Primary Care Provider Active Start: October 24, 2024 End: October 24, 2024 No Primary Care Physician Referring Provider Active Start: October 24, 2024 End: October 24, 2024 Radha Morales VIOLIN REPAIRER-C Attending Provider Active S tart: October 24, 2024 End: October 24, 2024 Team Status: Inactive Member Role/Relationship Status Dates No Primary Care Physician Primary Care Provider Active Start: October 24, 2024 End: October 24, 2024 FRANSISCO Benitez Attending Provider Active S tart: October 24, 2024 End: October 24, 2024 FRANSISCO Benitez Referring Provider Active S tart: October 24, 2024 End: October 24, 2024 Team Status: Inactive Member Role/Relationship Status Dates No Primary Care Physician Primary Care Provider Active Start: November 21, 2024 End: November 21, 2024 No Primary Care Physician Referring Provider Active Start: November 21, 2024 End: November 21, 2024 FRANSISCO Benitez Attending Provider Active S tart: November 21, 2024 End: November 21, 2024 Team Status: Active Member Role/Relationship Status Dates Norma Mcmanus MD Primary Care Provider Active Team Status: Inactive Member Role/Relationship Status Dates Norma Mcmanus MD Primary Care Provider Active Start: November 21, 2024 End: November 21, 2024 Dr. Luisito Martines MD Attending Provider Active Start: November 21, 2024 End: November 21, 2024 Dr. Luisito Martines MD Referring Provider Active Start: November 21, 2024 End: November 21, 2024 FRANSISCO Benitez Other Provider Active Start : November 21, 2024 End: November 21, 2024 Goals (unrecognized section and content) Goals may be documented in a n alternate sectionGoals may be documented in an alternate sectionGoals may be documented in an alternate sectionGoals may be documented in an alternate sectionGoals may be documented in an alternate sectionGoals may be documented in an alternate section FOR RECORDS PERTAINING TO PATIENTS WHO ARE OR HAVE BEEN ENROLLED IN A CHEMICAL DEPENDENCY/SUBSTANCEABUSE PROGRAM, SOME INFORMATION MAY BE OMITTED. This clinical summary was aggregated from multiple sources. Caution should be exercised in using it in the provision of clinical care. This summary normalizes information from multiple sources, and as a consequence, information in this document may materially change the coding, format and clinical context of patient data. In addition, data may be omitted in some cases. CLINICAL DECISIONS SHOULD BE BASED ON THE PRIMARY CLINICAL RECORDS. [facility] [employer] [facility]. provides no warranty or guarantee of the accuracy or completeness of information in this document.
--- NOTE | 2025-03-28 19:40 | RAD_ITS ---
PROCEDURE: CHEST PA AND LATERAL 03/28/2025 REASON FOR EXAM: WEAKNESS TECHNIQUE: Procedure Code: RADCXR Modality: DX Procedure: CHEST PA AND LATERAL COMPARISON: None. FINDINGS: Lungs/Pleura: No appreciable focal consolidation, pneumothorax or pleural effusion. Heart/Mediastinum: Cardiomegaly with mild central vascular congestion. Bones/Soft tissues: Multilevel degenerative changes of the spine. RAD/Chest PA and Lateral IMPRESSION: Cardiomegaly with mild central vascular congestion. No acute pulmonary disease . Reading Location: [id number]
[2025-03-28 20:25] LABS: Hematocrit 42.0 % (37-47); Hemoglobin 13.8 g/dL (12.0-15.0); Immature Granulocytes Count 0.010 X10^3/uL (0.0-0.0); Mean Corp Hgb Conc 32.9 g/dL (32-36); Mean Corpuscular Volume 95.7 fL (81-99); Mean Platelet Vol. 11.8 fl (6.2-12.0); NRBC Flagged by Analyzer 0 % (0-5); Platelet Count 217 K/mm3 (150-450); RBC Distribution Width CV 13.1 % (11.6-14.6); RBC Distribution Width SD 46.7 fl (35.1-43.9); Red Blood Count 4.39 M/mm3 (4.2-5.4); White Blood Count 7.5 K/mm3 (4.4-11.0)
[2025-03-28 20:27] LABS: Anion Gap 11 (5-15); BUN 16 mg/dL (4-19); BUN/Creat Ratio 21.6 RATIO (10-20); Calcium,Total 9.8 mg/dL (7.6-11.0); Carbon Dioxide 23.1 mmol/L (21.0-32.0); Chloride 106 mmol/L (98-108); Estimated Creatinine Clearance 59.91 ml/min (50-250); Glucose 119 mg/dL (70-99); Potassium 3.5 mmol/L (3.3-5.1)
[2025-03-28 21:15] LABS: Mucous, Urine 0 SEEN /hpf (<or=2+)
[2025-03-28 21:46] LABS: Color, Urine Yellow (Yellow); Glucose, Dipstick Normal (Normal); Ketone-Dipstick Negative (Negative); Leukocyte Esterase-Dipstick 25 /ul (Negative); Nitrite-Dipstick Positive (Negative); Occult Blood-Urine Negative /ul (Negative); Protein-Dipstick Negative (Negative); Specific Gravity, Urine 1.010 (1.002-1.030); Urine Bilirubin Dipstick Negative (Negative)
[2025-03-28 22:22] LABS: Red Blood Cells-Urine 0-5 SEEN /hpf (0-5); Squamous Epithelial Cells - UA 0-5 SEEN /hpf (5-10)
[2025-03-28 22:30] LABS: Prothrombin Time (Protime)PT. 13.5 SECONDS (11.7-14.9)
[2025-03-28 22:31] LABS: Partial Thromboplast Time 25.8 Seconds (24.1-36.2)
[2025-03-29] VITALS: BP 159/60; PULSE 68; RESP 18; TEMP 36.7; O2SAT 97
== END 2025-03-29 00:06 | disposition home or self-care (01) ==
PROVIDERS: Emergency Provider Emergency Medicine; PCP Student in an Organized Health Care Education/Training Program; Visit Provider Emergency Medicine
DX: G62.9 Polyneuropathy, unspecified (principal); N39.0 Urinary tract infection, site not specified; N18.2 Chronic kidney disease, stage 2 (mild); R03.0 Elevated blood-pressure reading, without diagnosis of hypertension; Z90.710 Acquired absence of both cervix and uterus; Z96.659 Presence of unspecified artificial knee joint; Z90.10 Acquired absence of unspecified breast and nipple
CPT/HCPCS: 70450; 71046; 80048; 80201; 81001; 82962; 83605; 85025; 85610; 85730; 87077; 87086; 87088; 87186; 93005; 96374; 99285; A4216